=== PATIENT | male | born 1940 | race Caucasian/White ===

== ENCOUNTER 2021-10-02 14:00 | Inpatient (IN) ==
--- NOTE | 2021-10-02 14:07 | DR.DIZZY ---
HPI Time seen Time Seen by Provider: 10/02/21 14:15 HPI Comment HPI Comment: PATIENT IS 81YR OLD MALE IN ER WITH GENERALIZED PAIN, FREQUENT FALLS, LEFT SIDE PAIN AND VOMITING FOR FEW DAYS. HAVING HEADACHE. CHEST, ABDOMINAL PAIN AND NECK PAIN MAINLY ON RIGHT SIDE FROM THE FALL. PAIN IS SHATP, 7/10. Complaint Chief Complaint Doctor Comments: GENERALIZED WEAKNESS, VOMITING, FREQUENT FALLS AND SIDE PAIN FOR FEW DAYS. COVID-19 Coronavirus risk:travel/contact w/high risk person: No Has patient experienced Coronavirus symptoms: No Nurses Notes Reviewed Nurses Notes Review: Yes Source History Provided: Patient and Family Member Timing Came on: Suddenly Duration Duration: Constant Duration: Days Location of Weakness Weakness Location: Generalized Context Onset: At rest History of: None Stroke Symptoms: Ataxia Severity Severity: Abnormal activity level Modifying factors Worsens: Change in Position Associated signs and symptoms Associated Signs and Symptoms: Imbalance, Weak and Vomiting PMH PMH Past Surgical History: Yes ROS Review of Systems Constitutional: See HPI, Weakness and Fatigue; negative Fever Eyes: No Symptoms Reported and See HPI; negative Blurred Vision and Diplopia ENTM: No Symptoms Reported and See HPI; negative Nose Discharge and Nose Congestion Respiratoy: No Symptoms Reported and See HPI; negative Moist Cough and Short of Breath Cardiovascular: No Symptoms Reported and See HPI; negative Chest Pain Gastrointestinal/Abdominal: See HPI, Nausea and Vomiting; negative Abdominal Pain and Diarrhea Genitourinary: No Symptoms Reported and See HPI; negative Dysuria Neurological: See HPI, Headache and Weakness; negative Dizziness Musculoskeletal: No Symptoms Reported and See HPI; negative Back Pain and Muscle Pain Integumentary: No Symptoms Reported and See HPI; negative Rash and Juandice Hematologic/Lymphatic: No Symptoms Reported and See HPI Endocrine: No Symptoms Reported and See HPI; negative Increased Thirst and Increased Urine Psychiatric: No Symptoms Reported and See HPI All Other Systems: Reviewed and Negative PE Vital Signs Vitals: Temperature 98.4 F Pulse Rate 89 Respiratory Rate 28 Blood Pressure 99/62 O2 Sat by Pulse Oximetry 95 General Limitations: No Limitations General Appearance: Alert and In No Apparent Distress Head Head Exam: Normal Inspection Eyes Eye exam: Normal Appearance; negative Scleral Icterus and Conjunctival Injection Pupils: Regular, Round: Bilateral and Reactive: Bilateral Sclera/Conjunctival: Normal Inspection: Bilateral ENT ENT Exam: Normal Exam, Normal Oropharynx, Normal External Ear Exam and TM's Normal Bilaterally Neck Neck Exam: Normal Inspection, Full ROM and Trachea Midline; negative Tenderness Chest Chest Inspection: Normal Inspection and Symmetric Chest Wall Rise; negative Tenderness Respiratory Respiratory Exam: Normal Lung Sounds Bilat; negative Accessory Muscle Use, Chest Wall Tenderness and Respiratory Distress Respiratory Exam: Bilateral: Rhonchi and Lower: Rhonchi Cardiovascular Cardiovascular Exam: Regular Rate, Normal Rhythm and Normal Heart Sounds; negative Systolic Murmur and Diastolic Murmur Abdominal Exam Abdominal Exam: Normal Inspection, Normal Bowel Sounds and Soft; negative Tenderness Rectal Rectal Exam: Deferred Extremeties Extremities Exam: Normal Inspection, Full ROM and Normal Capillary Refill Back Back Exam: Normal Inspection and Full ROM; negative (R) CVA Tenderness and (L) CVA Tenderness Neurologic Neurological Exam: Alert and Oriented X3; negative Motor Sensory Deficit Patient Oriented To: Person, Place and Time Cranial Nerve Exam: EOM Function (II, III, IV, ): Normal, Facial Sensation (V): Normal, Facial Palsy (VII): Normal, Gag reflex (XI): Normal and Tongue Deviation: Normal Motor Strength - LUE: 5/5 Motor Strength - RUE: 5/5 Motor Strength - LLE: 5/5 Motor Strength - RLE: 5/5 Upper Motor Neuron Exam: Babinski Sign: Normal Psychiatric Psychiatric Exam: Normal Affect and Normal Mood Skin Skin Exam: Warm, Dry, Intact and Normal Color MDM Differential Diagnosis Differential Diagnosis: CVA, Dehydration, Dysrhythmia, Electrolyte disorder, Labyrinthitis, Myocardial infarction, TIA and Central Vertigo Differential Diagnosis Comment: [place], PNEUMONIA, UTI, PAIN, ABD. PAIN, NECK STRAIN, CLOSE HEAD INJURY. COURSE Treatment Treatment: SEE ORDERS DONE WHILE PATIENT WAS IN ER. PATIENT WAS GIVEN ZOFRAN 4MG IV, LOPRESSOR 5MG IV AND NS 250MG/HR IV WHILE PATIENT WAS IN ER. PATIENT WAS AD MITTED TO HOSPITAL FOR FURTHER MANAGEMENT. Consultation Consultation Comments: DISCUSSED PATIENT WITH DR. JARA. HE ADMITTED PATIENT. Education/Counseling Education/Counseling: Patient Educated On: Diagnosis ROR Labs Reviewed Laboratory Results Reviewed?: Yes Result Diagrams: 10/13/21 05:00 10/13/21 05:00 Laboratory: 10/02/21 15:33 Blood Blood Culture - Final 10/02/21 15:27 Blood Blood Culture - Final WBC 15.0 X10^3/uL (3.6-10.0) H 10/02/21 14:15 RBC 2.87 X10^6/uL (4.7-6.0) L 10/02/21 14:15 Hgb 8.7 g/dL (13.5-18.0) L 10/02/21 14:15 Hct 25.8 % (42.0-54.0) L 10/02/21 14:15 MCV 90.1 fL (80.0-100.0) 10/02/21 14:15 MCH 30.2 pg (27.0-34.0) 10/02/21 14:15 MCHC 33.5 g/dL (33.0-35.0) 10/02/21 14:15 RDW 14.9 % (11.6-16.5) 10/02/21 14:15 Plt Count 282 X10^3/uL (150.0-450.0) 10/02/21 14:15 Plt Count Comment Adequate (ADEQUATE) 10/02/21 14:15 MPV 9.2 fL (7.4-11.0) 10/02/21 14:15 Neut % (Auto) 90.9 % (42.0-75.0) H 10/02/21 14:15 Lymph % (Auto) 2.4 % (21.0-51.0) L 10/02/21 14:15 [place] % (Auto) 6.3 % (0.0-13.0) 10/02/21 14:15 Eos % (Auto) 0.1 % (0.9-2.9) L 10/02/21 14:15 Baso % (Auto) 0.3 % (0.2-1.0) 10/02/21 14:15 Neut # (Auto) 13.6 x10^3/uL (2.2-4.8) H 10/02/21 14:15 Lymph # (Auto) 0.4 X10^3/uL (1.3-2.9) L 10/02/21 14:15 [place] # (Auto) 0.9 x10^3/uL (0.3-0.8) H 10/02/21 14:15 Eos # (Auto) 0.0 x10^3/uL (0.0-0.2) 10/02/21 14:15 Baso # (Auto) 0.0 X10^3/uL (0.0-0.1) 10/02/21 14:15 Absolute Nucleated RBC 0.0 /100WBC 10/02/21 14:15 Total Counted 100 10/02/21 14:15 Neutrophils % (Manual) 93 % (39-76) H 10/02/21 14:15 Lymphocytes % (Manual) 6 % (13-43) L 10/02/21 14:15 Monocytes % (Manual) 1 % (4-9) L 10/02/21 14:15 Plt Morphology Comment Normal (NORMAL) 10/02/21 14:15 RBC Morphology Normal (NORMAL) 10/02/21 14:15 Sodium 135 mmol/L (136-145) L 10/02/21 14:15 Corrected Sodium 137 mmol/L (136-145) 10/02/21 14:15 Potassium 5.1 mmol/L (3.5-5.1) 10/02/21 14:15 Chloride 98 mmol/L (98-107) 10/02/21 14:15 Carbon Dioxide 22.2 mmol/L (21-32) 10/02/21 14:15 BUN 98 mg/dL (7-18) H 10/02/21 14:15 Creatinine 5.80 mg/dL (0.70-1.30) H 10/02/21 14:15 Est GFR (MDRD) Af Amer 12 (>60) L 10/02/21 14:15 Est GFR (MDRD) Non-Af 10 (>60) L 10/02/21 14:15 Glucose 165 mg/dL (65-99) H 10/02/21 14:15 Lactic Acid 2.5 mmol/L (0.4-2.0) H 10/02/21 14:15 Calcium 7.2 mg/dL (8.5-10.1) L 10/02/21 14:15 Corrected Calcium 8.2 mg/dL (8.5-10.1) L 10/02/21 14:15 Total Bilirubin 0.60 mg/dL (0.2-1.0) 10/02/21 14:15 AST 62 Units/L (15-37) H 10/02/21 14:15 ALT 22 Units/L (12-78) 10/02/21 14:15 Alkaline Phosphatase 154 Units/L (46-116) H 10/02/21 14:15 Creatine Kinase 2718 Units/L (39-308) H 10/02/21 14:15 CK-MB (CK-2) 8.1 ng/mL (0-4.0) H* 10/02/21 14:15 CK/CKMB % Calc 0.3 % (<4) 10/02/21 14:15 Troponin I High Sens 61.5 ng/L (4.0-60.0) H* 10/02/21 14:15 B-Natriuretic Peptide 28.6 pg/mL (0-79) 10/02/21 14:15 Total Protein 5.9 g/dL (6.4-8.2) L 10/02/21 14:15 Albumin 2.8 g/dL (3.4-5.0) L 10/02/21 14:15 Globulin 3.1 g/dL (2.5-4.5) 10/02/21 14:15 Albumin/Globulin Ratio 0.9 Ratio (1.1-2.1) L 10/02/21 14:15 TSH 3rd Generation 0.859 uIU/mL (0.358-3.74) 10/02/21 14:15 Specimen Type Catherized urine 10/02/21 01:08 Urine Color Yellow (YELLOW) 10/02/21 01:08 Urine Appearance Clear (CLEAR) 10/02/21 01:08 Urine pH 5.0 (5.0 - 8.0) 10/02/21 01:08 Ur Specific [place] 1.020 (1.000-1.030) 10/02/21 01:08 Urine Protein 1+ (NEGATIVE) 10/02/21 01:08 Urine Glucose (UA) Negative (NEGATIVE) 10/02/21 01:08 Urine Ketones Negative (NEGATIVE) 10/02/21 01:08 Urine Occult Blood 1+ (NEGATIVE) 10/02/21 01:08 Urine Nitrite Negative (NEGATIVE) 10/02/21 01:08 Urine Bilirubin 1+ (NEGATIVE) 10/02/21 01:08 Urine Urobilinogen Normal (NORMAL) 10/02/21 01:08 Ur Leukocyte Esterase Negative (NEGATIVE) 10/02/21 01:08 Urine RBC None seen /HPF (0-3) 10/02/21 01:08 Urine WBC None seen /HPF (0-5) 10/02/21 01:08 Ur Squamous Epith Cells Rare /HPF (NEGATIVE) 10/02/21 01:08 Urine Bacteria Negative /HPF (NEGATIVE) 10/02/21 01:08 Ur Culture Indicated? No/not indicated 10/02/21 01:08 Theophylline < 2.0 ug/mL (10-20) L 10/02/21 14:15 SARS-CoV-2 (PCR) Negative (NEGATIVE) 10/02/21 15:58 Influenza Type A (PCR) Negative (NEGATIVE) 10/02/21 15:58 Influenza Type B (PCR) Negative (NEGATIVE) 10/02/21 15:58 RSV (PCR) Negative (NEGATIVE) 10/02/21 15:58 XRAY XRAY Interpreted by: Radiologist (REPORTS NOTED.) and Self EKG Rate: 155 [place]: Normal Rhythm: PSVT and PVCs Block: IVCD Hypertrophy: None ST: Nonsp Opioid Opioid Risk Tool Age (Gil box if 16-45): No Total: 0 Total Score Risk Category: Low Risk Copyright: [facility] predicting aberrant behaviors Diagnosis Discharge Problem: Acute dehydration, Weakness generalized Acute renal failure Qualifiers: Acute renal failure type: unspecified Qualified Code(s): N17.9 - Acute kidney failure, unspecified Thoracic spine fracture Qualifiers: Encounter type: initial encounter Thoracic vertebra fracture level: T8 Fracture type: closed Fracture morphology: unspecified fracture morphology Qualified Code(s): S22.069A - Unspecified fracture of T7-T8 vertebra, initial encounter for closed fracture Closed left scapular fracture Qualifiers: Encounter type: initial encounter Scapula location: body Fracture alignment: nondisplaced Qualified Code(s): S42.115A - Nondisplaced fracture of body of scapula, left shoulder, initial encounter for closed fracture Fall Qualifiers: Encounter type: initial encounter Qualified Code(s): W19.XXXA - Unspecified fall, initial encounter Instructions Forms: Precautions for COVID19 [facility] Social Distancing
[2021-10-02 14:28] VITALS: BMI 29.9
[2021-10-02 14:31] LABS: BASOPHILS % (AUTO) 0.3 % (0.2-1.0); EOSINOPHILS % (AUTO) 0.1 % (0.9-2.9); HEMATOCRIT 25.8 % (42.0-54.0); HEMOGLOBIN 8.7 g/dL (13.5-18.0); LYMPHOCYTES # (AUTO) 0.4 X10^3/uL (1.3-2.9); LYMPHOCYTES % (AUTO) 2.4 % (21.0-51.0); MEAN CORPUSCULAR HEMOGLOBIN 30.2 pg (27.0-34.0); MEAN CORPUSCULAR HGB CONC 33.5 g/dL (33.0-35.0); MEAN CORPUSCULAR VOLUME 90.1 fL (80.0-100.0); MEAN PLATELET VOLUME 9.2 fL (7.4-11.0); MONOCYTES # (AUTO) 0.9 x10^3/uL (0.3-0.8); MONOCYTES % (AUTO) 6.3 % (0.0-13.0); NEUTROPHILS # (AUTO) 13.6 x10^3/uL (2.2-4.8); NEUTROPHILS % (AUTO) 90.9 % (42.0-75.0); RED BLOOD COUNT 2.87 X10^6/uL (4.7-6.0); RED CELL DISTRIBUTION WIDTH 14.9 % (11.6-16.5)
[2021-10-02 14:49] LABS: PLATELET MORPHOLOGY COMMENT NORMAL (NORMAL)
--- NOTE | 2021-10-02 14:53 | CT ---
HEAD (TRAUMA)CLINICAL INDICATION: NO APPETITE, WEAK, DEHYDRATED, FALLINGTECHNIQUE: Images were obtained through the head per standard CT protocol. Multiplanar reformatted images were generated from the CT dataset. Dose reduction techniques including Automated Exposure Control (AEC) and adjustment of mA and kV were utlized.COMPARISON:NoneFINDINGS:Severe diffuse patchy and confluent periventricular and subcortical hypoattenuation with associated volume loss . There is no evidence of acute infarction, intracranial hemorrhage, mass or mass effect, or abnormal extra-axial collection . The density of the larger dural venous sinuses is normal. Age-related, ex-vacuo dilatation of the ventricles and sulci . The skull base and calvarium are normal . The included paranasal sinuses and mastoid air cells are predominantly clear .IMPRESSION:1. No acute intracranial abnormality. Severe chronic microangiopathic changes and ex vacuo dilatation of the ventricles and sulci.[]Electronically signed by: DANITA LAFLEUR (Oct 02, 2021 14:52:20)
[2021-10-02 14:57] LABS: CALCIUM 7.2 mg/dL (8.5-10.1); CARBON DIOXIDE 22.2 mmol/L (21-32); CREATININE 5.8 mg/dL (0.70-1.30)
--- NOTE | 2021-10-02 14:59 | CT ---
PROCEDURE: CT Abdomen and Pelvis without Contrast .HISTORY: Anorexia and weakness with dehydration and falls.TECHNIQUE: Axial images were performed through the abdomen and pelvis without the administration of IV contrast with multiplanar reformations . Oral contrast was not administered . Dose reduction techniques including Automated Exposure Control (AEC) and adjustment of mA and kV were utilized .COMPARISON: None .TECHNICAL QUALITY: This study was ordered and performed without IV contrast and is insensitive to lower grade solid organ trauma.FINDINGS:Clear lung bases. Moderate hiatal hernia.No upper abdominal solid organ trauma.Kidneys show no stones or obstruction.Small stones in the gallbladder with no inflammation and normal size biliary tree.No ascites or pneumoperitoneum.Mild atherosclerosis aorta.No lymphadenopathy.No bowel obstruction or inflammation. Mild colonic diverticulosis. Normal appendix.Pelvis shows no masses or free fluid in normal urinary bladder.No acute bony abnormality.IMPRESSION:1. Cholelithiasis.2. No upper abdominal solid organ trauma or ascites.3. Mild colonic diverticulosis.4. No bony fracture.Electronically signed by: Girma Zambrano (Oct 02, 2021 14:58:27)
[2021-10-02] MEDS ORDERED: ZOFRAN INJ 4 MG VIAL IVP ONE (15:02)
[2021-10-02] MEDS ORDERED: LOPRESSOR INJ 5 MG AMP IVP ONE (15:02)
[2021-10-02] MEDS ORDERED: NS 1,000 ML IV 1,000 ML ONE ×2 (15:08→19:41)
[2021-10-02] MEDS ORDERED: ZOFRAN INJ 4 MG VIAL ONE (15:08)
[2021-10-02] MEDS ORDERED: LOPRESSOR INJ 5 MG AMP ONE (15:08)
--- NOTE | 2021-10-02 15:10 | CT ---
HISTORYNO APPETITE, WEAK, DEHYDRATED, FALLINGSTUDYCERVICAL SPINE W/O CONCOMPARISONNone available.TECHNIQUEAxial non-contrast images of the cervical spine with coronal and sagittal reformats.Radiation dose: 354.20 mGy-cm total DLPFINDINGSNo acute fracture.Normal alignment.Vertebral body heights maintained.Pre-vertebral soft tissues are normal.No clinically significant spinal stenosis.Multilevel neural foraminal narrowing.Multilevel mild degenerative disc disease throughout the cervical spine.Moderate degenerative changes at the atlantoaxial interval.Multilevel moderate degenerative changes in the facet and uncovertebral joints.Soft tissues are unremarkable.Paraseptal emphysema in both apices is wall scarring in the right lung apex.Cerumen in the external auditory canals.IMPRESSION1. No acute abnormality identified.2. Multilevel degenerative disc and joint changes resulting in multilevel neural foraminal narrowing.Electronically signed by: Trent Wilder (Oct 02, 2021 15:09:18)
--- NOTE | 2021-10-02 15:16 | CT ---
PROCEDURE: CT Chest without Contrast .HISTORY: Anorexia with weakness, dehydration, and falls.TECHNIQUE: Axial images were performed through the chest without the administration of IV contrast with multiplanar reformations . Dose reduction techniques including Automated Exposure Control (AEC) and adjustment of mA and kV were utilized .COMPARISON: 09/28/2016.TECHNICAL QUALITY: Satisfactory .FINDINGS:Mild atherosclerosis thoracic aorta with no aneurysm or vascular trauma.Mediastinum and hilar regions show no masses or lymphadenopathy. No hemo mediastinum or pneumo mediastinum. Moderate hiatal hernia with gastroesophageal reflux with moderate distention of the thoracic esophagus with fluid.Normal size heart with trace pericardial effusion.Emphysematous changes throughout both lung abraham. No pulmonary contusion, hemothorax, or pneumothorax. Some bronchiectasis and scarring right apex. No pulmonary masses.Small gallstones in the gallbladder visualized upper abdomen. No other acute change.Moderately comminuted left scapula fracture. Possible fracture through the anterior portion of the T8 vertebral body without significant decrease in height. Old fracture distal left clavicle with bony deformity.IMPRESSION:1. No thoracic vascular pulmonary trauma.2. Moderate hiatal hernia with gastroesophageal reflux.3. COPD.4. Moderately comminuted left scapula fracture.5. Possible T8 vertebral body fracture and clinical correlation recommended.6. Cholelithiasis.Electronically signed by: Girma Zambrano (Oct 02, 2021 15:15:35)
[2021-10-02] MEDS: NS 1,000 ML IV 1,000 ML IV SCH ×2 (15:21→21:29)
[2021-10-02 16:09] LABS: ALBUMIN 2.8 g/dL (3.4-5.0); COR CA(FOR HYPOALB) 8.2 mg/dL (8.5-10.1); TOTAL PROTEIN 5.9 g/dL (6.4-8.2)
[2021-10-02 16:11] LABS: CKMB % 0.3 % (<4); CREATINE KINASE MB 8.1 ng/mL (0-4.0)
[2021-10-02 16:12] LABS: THEOPHYLLINE < 2.0 ug/mL (10-20); TSH (3RD GENERATION) 0.859 uIU/mL (0.358-3.74)
[2021-10-02] MEDS ORDERED: NS 1,000 ML IV 1,000 ML IV SCH (19:23)
[2021-10-02] MEDS: PEPCID TAB 20 MG PO SCH (21:51)
[2021-10-03 02:00] LABS: BILIRUBIN,URINE 1+ (NEGATIVE); BLOOD/HEMOGLOBIN,URINE 1+ (NEGATIVE); GLUCOSE, URINE NEGATIVE (NEGATIVE); KETONES,URINE NEGATIVE (NEGATIVE); LEUKOCYTE ESTERASE ,URINE NEGATIVE (NEGATIVE); NITRITES,URINE NEGATIVE (NEGATIVE); PROTEIN,URINE 1+ (NEGATIVE); UROBILINOGEN,URINE NORMAL (NORMAL)
[2021-10-03 02:43] LABS: APPEARANCE,URINE CLEAR (CLEAR); BACTERIA,URINE NEGATIVE /HPF (NEGATIVE); COLOR,URINE YELLOW (YELLOW); RBC,URINE NONE SEEN /HPF (0-3); SQUAMOUS EPITHELIAL CELL,UR RARE /HPF (NEGATIVE)
[2021-10-03] MEDS: NS 1,000 ML IV 1,000 ML IV SCH ×4 (04:09→23:30)
[2021-10-03 05:03] LABS: BASOPHILS % (AUTO) 0.2 % (0.2-1.0); EOSINOPHILS # (AUTO) 0.1 x10^3/uL (0.0-0.2); EOSINOPHILS % (AUTO) 0.7 % (0.9-2.9); HEMATOCRIT 21.3 % (42.0-54.0); HEMOGLOBIN 7.1 g/dL (13.5-18.0); LYMPHOCYTES # (AUTO) 0.7 X10^3/uL (1.3-2.9); LYMPHOCYTES % (AUTO) 6.4 % (21.0-51.0); MEAN CORPUSCULAR HEMOGLOBIN 30.3 pg (27.0-34.0); MEAN CORPUSCULAR HGB CONC 33.4 g/dL (33.0-35.0); MEAN CORPUSCULAR VOLUME 90.8 fL (80.0-100.0); MEAN PLATELET VOLUME 9.6 fL (7.4-11.0); MONOCYTES # (AUTO) 0.8 x10^3/uL (0.3-0.8); MONOCYTES % (AUTO) 6.7 % (0.0-13.0); RED BLOOD COUNT 2.35 X10^6/uL (4.7-6.0); RED CELL DISTRIBUTION WIDTH 14.6 % (11.6-16.5)
[2021-10-03 05:07] LABS: ALANINE AMINOTRANSFERASE 21 Units/L (12-78); ALBUMIN 2.1 g/dL (3.4-5.0); ALKALINE PHOSPHATASE 121 Units/L (46-116); ASPARTATE AMINO TRANSFERASE 75 Units/L (15-37); BLOOD UREA NITROGEN 102 mg/dL (7-18); CALCIUM 6.7 mg/dL (8.5-10.1); CARBON DIOXIDE 21.7 mmol/L (21-32); CHLORIDE 104 mmol/L (98-107); COR CA(FOR HYPOALB) 8.2 mg/dL (8.5-10.1); CREATININE 4.55 mg/dL (0.70-1.30); MAGNESIUM 1.9 mg/dL (1.7-2.9); SODIUM 137 mmol/L (136-145); TOTAL PROTEIN 5.1 g/dL (6.4-8.2); eGFR NON BLACK RACES 13 (>60)
[2021-10-03 05:47] LABS: PLATELET MORPHOLOGY COMMENT NORMAL (NORMAL); WHITE BLOOD COUNT 13.7 X10^3/uL (3.6-10.0)
[2021-10-03 05:53] LABS: CKMB % 0.2 % (<4)
[2021-10-03 05:55] LABS: CREATINE KINASE MB 7.6 ng/mL (0-4.0)
[2021-10-03] MEDS ORDERED: MAGNESIUM SULFATE 1 GRAM/100 mL PREMIX 1 G/100 ML BAG IV ONE (06:03)
[2021-10-03] MEDS: MAGNESIUM SULFATE 1 GRAM/100 mL PREMIX 1 G/100 ML BAG IV PRN ×2 (06:09→09:05)
--- NOTE | 2021-10-03 08:43 | DR.H&P ---
H&P History & Physical for Day of: H&P Date: 10/02/21 Chief Complaint Chief Complaint: Frequent Falls, generalized pain, Nausea and vomiting for a few days. Allergies Allergies Allergy/AdvReac Type Severity Reaction Status Date / Time Penicillins Allergy Verified 10/02/21 14:01 History of Present Illness History of Present Illness: This is a pleasant 81 year old white male who presented to the emergency department with Chief complaint frequent falls, Generalized pain and nausea and vomiting for for a number of days. The patient is a poor historian it does not answer questions well. Currently there are no family members available to discuss the patient's recent medical history and past medical history. He does report having black stools over the last several bowel movements. He denies coffee ground emesis. In the work up last night in the emergency department he was found to be professionally dehydrated with a creatinine of 5.8. His hemoglobin was 8.7. He was also found to have a close scapula fracture on the left side as well as a fracture of the T8 vertebra. Initially his high sensitivity troponin was slightly elevated just above 60. I suspect it is falsely elevated due to his low cr clearance. Patient urinalysis was done and it did not show infection. His chest x-ray did not show any evidence of infiltrates or consolidations. He does have a Leukocytosis of 15,000. The patient was going to be transferred elsewhere because of these T8 fracture but The patient refused as well as a family. They instead elected to be admitted here to [facility] for treatment. The patient was subsequently admitted upstairs for IV fluid hydration and pain control of his fractures. Past Medical History Past Medical History: CHF, Dementia, Dyslipidemia, GERD, Gout and Hypertension Past Surgical History Additional Surgical History: Right wrist surgery unknown type. Family History Family Medical History: Cancer Social History Does patient currently use any type of tobacco product: No Have you used tobacco products in the last 12 months: No Type of Tobacco Use: None How many years tobacco product used: 20 Does any household member use tobacco: No Alcohol Use: None Drug Use: Prescription Drugs Medications Home Medications: Penicillins Allergy (Verified 10/02/21 14:01) CONTINUE taking the following medications atorvastatin 40 mg PO HS 10/02/21 [History] cilostazol 100 mg PO BID 10/02/21 [History] ferrous sulfate 324 mg PO BID 10/02/21 [History] furosemide 20 mg PO BID PRN 10/02/21 [History] indomethacin 50 mg PO BID 10/02/21 [History] lisinopril-hydrochlorothiazide 1 tab PO DAILY 10/02/21 [History] potassium chloride 10 meq PO DAILY 10/02/21 [History] Labs Result Diagrams: 10/03/21 04:25 10/03/21 04:25 Labs: Laboratory WBC 13.7 X10^3/uL (3.6-10.0) H 10/03/21 04:25 RBC 2.35 X10^6/uL (4.7-6.0) L 10/03/21 04:25 Hgb 7.1 g/dL (13.5-18.0) L 10/03/21 04:25 Hct 21.3 % (42.0-54.0) L 10/03/21 04:25 MCV 90.8 fL (80.0-100.0) 10/03/21 04:25 MCH 30.3 pg (27.0-34.0) 10/03/21 04:25 MCHC 33.4 g/dL (33.0-35.0) 10/03/21 04:25 RDW 14.6 % (11.6-16.5) 10/03/21 04:25 Plt Count 223 X10^3/uL (150.0-450.0) 10/03/21 04:25 Plt Count Comment Adequate (ADEQUATE) 10/03/21 04:25 MPV 9.6 fL (7.4-11.0) 10/03/21 04:25 Neut % (Auto) 86.0 % (42.0-75.0) H 10/03/21 04:25 Lymph % (Auto) 6.4 % (21.0-51.0) L 10/03/21 04:25 [place] % (Auto) 6.7 % (0.0-13.0) 10/03/21 04:25 Eos % (Auto) 0.7 % (0.9-2.9) L 10/03/21 04:25 Baso % (Auto) 0.2 % (0.2-1.0) 10/03/21 04:25 Neut # (Auto) 10.0 x10^3/uL (2.2-4.8) H 10/03/21 04:25 Lymph # (Auto) 0.7 X10^3/uL (1.3-2.9) L 10/03/21 04:25 [place] # (Auto) 0.8 x10^3/uL (0.3-0.8) 10/03/21 04:25 Eos # (Auto) 0.1 x10^3/uL (0.0-0.2) 10/03/21 04:25 Baso # (Auto) 0.0 X10^3/uL (0.0-0.1) 10/03/21 04:25 Absolute Nucleated RBC 0.0 /100WBC 10/03/21 04:25 Total Counted 100 10/02/21 14:15 Neutrophils % (Manual) 93 % (39-76) H 10/02/21 14:15 Lymphocytes % (Manual) 6 % (13-43) L 10/02/21 14:15 Monocytes % (Manual) 1 % (4-9) L 10/02/21 14:15 Plt Morphology Comment Normal (NORMAL) 10/03/21 04:25 RBC Morphology Normal (NORMAL) 10/03/21 04:25 PT 14.8 SECONDS (11.8-14.3) 10/03/21 04:25 INR Target Range - 10/03/21 04:25 INR 1.21 (0.8-1.3) 10/03/21 04:25 APTT 20.0 SECONDS (22.9-36.5) L 10/03/21 04:25 PTT Comment - 10/03/21 04:25 Sodium 137 mmol/L (136-145) 10/03/21 04:25 Corrected Sodium TNP 10/03/21 04:25 Potassium 4.8 mmol/L (3.5-5.1) 10/03/21 04:25 Chloride 104 mmol/L (98-107) 10/03/21 04:25 Carbon Dioxide 21.7 mmol/L (21-32) 10/03/21 04:25 BUN 102 mg/dL (7-18) H 10/03/21 04:25 Creatinine 4.55 mg/dL (0.70-1.30) H 10/03/21 04:25 Est GFR (MDRD) Af Amer 16 (>60) L 10/03/21 04:25 Est GFR (MDRD) Non-Af 13 (>60) L 10/03/21 04:25 Glucose 83 mg/dL (65-99) 10/03/21 04:25 Lactic Acid 2.5 mmol/L (0.4-2.0) H 10/02/21 14:15 Calcium 6.7 mg/dL (8.5-10.1) L 10/03/21 04:25 Corrected Calcium 8.2 mg/dL (8.5-10.1) L 10/03/21 04:25 Magnesium 1.9 mg/dL (1.7-2.9) 10/03/21 04:25 Total Bilirubin 0.40 mg/dL (0.2-1.0) 10/03/21 04:25 AST 75 Units/L (15-37) H 10/03/21 04:25 ALT 21 Units/L (12-78) 10/03/21 04:25 Alkaline Phosphatase 121 Units/L (46-116) H 10/03/21 04:25 Creatine Kinase 3255 Units/L (39-308) H 10/03/21 04:25 CK-MB (CK-2) 7.6 ng/mL (0-4.0) H* 10/03/21 04:25 CK/CKMB % Calc 0.2 % (<4) 10/03/21 04:25 Troponin I High Sens 52.3 ng/L (4.0-60.0) 10/03/21 04:25 B-Natriuretic Peptide 28.6 pg/mL (0-79) 10/02/21 14:15 Total Protein 5.1 g/dL (6.4-8.2) L 10/03/21 04:25 Albumin 2.1 g/dL (3.4-5.0) L 10/03/21 04:25 Globulin 3.0 g/dL (2.5-4.5) 10/03/21 04:25 Albumin/Globulin Ratio 0.7 Ratio (1.1-2.1) L 10/03/21 04:25 TSH 3rd Generation 0.859 uIU/mL (0.358-3.74) 10/02/21 14:15 Specimen Type Catherized urine 10/02/21 01:08 Urine Color Yellow (YELLOW) 10/02/21 01:08 Urine Appearance Clear (CLEAR) 10/02/21 01:08 Urine pH 5.0 (5.0 - 8.0) 10/02/21 01:08 Ur Specific [place] 1.020 (1.000-1.030) 10/02/21 01:08 Urine Protein 1+ (NEGATIVE) 10/02/21 01:08 Urine Glucose (UA) Negative (NEGATIVE) 10/02/21 01:08 Urine Ketones Negative (NEGATIVE) 10/02/21 01:08 Urine Occult Blood 1+ (NEGATIVE) 10/02/21 01:08 Urine Nitrite Negative (NEGATIVE) 10/02/21 01:08 Urine Bilirubin 1+ (NEGATIVE) 10/02/21 01:08 Urine Urobilinogen Normal (NORMAL) 10/02/21 01:08 Ur Leukocyte Esterase Negative (NEGATIVE) 10/02/21 01:08 Urine RBC None seen /HPF (0-3) 10/02/21 01:08 Urine WBC None seen /HPF (0-5) 10/02/21 01:08 Ur Squamous Epith Cells Rare /HPF (NEGATIVE) 10/02/21 01:08 Urine Bacteria Negative /HPF (NEGATIVE) 10/02/21 01:08 Ur Culture Indicated? No/not indicated 10/02/21 01:08 Theophylline < 2.0 ug/mL (10-20) L 10/02/21 14:15 SARS-CoV-2 (PCR) Negative (NEGATIVE) 10/02/21 15:58 Influenza Type A (PCR) Negative (NEGATIVE) 10/02/21 15:58 Influenza Type B (PCR) Negative (NEGATIVE) 10/02/21 15:58 RSV (PCR) Negative (NEGATIVE) 10/02/21 15:58 Review of Systems Constitutional: Weakness and Malaise Eyes: No Symptoms Reported ENT: No Symptoms Reported Respiratory: No Symptoms Reported Cardiovascular: No Symptoms Reported Gastrointestinal: Nausea and Vomiting Genitourinary: No Symptoms Reported Musculoskeletal: Shoulder Pain and Back Pain Skin: No Symptoms Reported Neurological: Weakness Physical Exam Vital Signs: Temperature 97.9 F Pulse Rate 77 Respiratory Rate 30 Blood Pressure [Left Arm] 104/56 Blood Pressure 121/65 O2 Sat by Pulse Oximetry 98 Oriented: Normal Eyes: Normal Ear: Normal Nose: Normal Throat: Normal Respiratory: Clear Throughout Cardiovascular: Normal Auscultation: Bowel Sounds: Normal Palpation: Normal Tenderness: Epigastric Skin: Decreased [place] Musculoskeletal: Left, Shoulder (Left shoulder blade pain. ) and Back:Thoracic (Painful to palpation over the T8 vertebrae. ) Psychiatric: Normal Mood Description: Calm Affect: Normal Speech Pattern: Delayed Assessment/Plan (1) Acute renal failure: Qualifiers: Acute renal failure type: unspecified Qualified Code(s): N17.9 - Acute kidney failure, unspecified Status: Acute Plan: Rehydration. (2) Acute dehydration: Status: Acute Plan: Intravenous hydration . (3) Thoracic spine fracture: Qualifiers: Encounter type: initial encounter Fracture morphology: unspecified fracture morphology Fracture type: closed Thoracic vertebra fracture level: T8 Qualified Code(s): S22.069A - Unspecified fracture of T7-T8 vertebra, initial encounter for closed fracture Status: Acute Plan: pain control. (4) Closed left scapular fracture: Qualifiers: Encounter type: initial encounter Fracture alignment: nondisplaced Scapula location: body Qualified Code(s): S42.115A - Nondisplaced fracture of body of scapula, left shoulder, initial encounter for closed fracture Status: Acute Plan: Pain control. (5) Weakness generalized: Status: Acute (6) Fall: Qualifiers: Encounter type: initial encounter Qualified Code(s): W19.XXXA - Unspecified fall, initial encounter Status: Acute (7) Anemia: Status: Acute Plan: Check hemoccult x 2 (8) Complaint of melena: Status: Acute Plan: we'll plan on consulting Dr. Rodriguez. (9) Rhabdomyolysis: Status: Acute
--- NOTE | 2021-10-03 09:07 | PCM.PROG ---
Progress Note Progress Note for Day of Date of Exam: 10/03/21 Subjective Subjective: The patient is at work this morning. He still is not answering questions well. His hemoglobin dropped to 7.1 this morning. His creatinine has improved to 4.55. However the patients creatine kinase has gone up since yesterday. Patient's vital signs have improved overall with a normalization of his blood pressure as well as his heart rate. Protonix 40 mg IV Q 12 hours with order this morning. And I will be consult Dr Rodriguez so he can see the patient later today for further evaluation and treatment. Past Medical Family Social History Past Med/Fam/Surg Hx: No changes since H&P Allergies: Allergies Penicillins Allergy (Verified 10/02/21 14:01) Vital Signs and I&O's Vital Signs: Temperature 97.9 F Pulse Rate 77 Respiratory Rate 30 Blood Pressure [Left Arm] 104/56 Blood Pressure 121/65 O2 Sat by Pulse Oximetry 98 Intake and Output: Intake & Output 09/30/21 10/01/21 10/02/21 10/03/21 10:59 11:59 11:59 11:59 Intake Total 2938 / 2938 Output Total 1050 / 1050 Balance 1888 / 1888 Physical Exam Oriented: Normal Eyes: Normal Ear: Normal Nose: Normal Throat: Normal Respiratory: Normal Cardiovascular: Normal : Normal Auscultation: Bowel Sounds: Normal Tenderness: Epigastric Skin: Decreased Turgur Musculoskeletal: Left, Shoulder (Left shoulder blade pain. ) and Back:Thoracic (Painful to palpation over the T8 vertebrae. ) Psychiatric: Normal Mood Description: Calm Affect: Normal Speech Pattern: Delayed Laboratory and Diagnostics Result Diagrams: 10/03/21 04:25 10/03/21 04:25 Labs: Laboratory WBC 13.7 X10^3/uL (3.6-10.0) H 10/03/21 04:25 RBC 2.35 X10^6/uL (4.7-6.0) L 10/03/21 04:25 Hgb 7.1 g/dL (13.5-18.0) L 10/03/21 04:25 Hct 21.3 % (42.0-54.0) L 10/03/21 04:25 MCV 90.8 fL (80.0-100.0) 10/03/21 04:25 MCH 30.3 pg (27.0-34.0) 10/03/21 04:25 MCHC 33.4 g/dL (33.0-35.0) 10/03/21 04:25 RDW 14.6 % (11.6-16.5) 10/03/21 04:25 Plt Count 223 X10^3/uL (150.0-450.0) 10/03/21 04:25 Plt Count Comment Adequate (ADEQUATE) 10/03/21 04:25 MPV 9.6 fL (7.4-11.0) 10/03/21 04:25 Neut % (Auto) 86.0 % (42.0-75.0) H 10/03/21 04:25 Lymph % (Auto) 6.4 % (21.0-51.0) L 10/03/21 04:25 [place] % (Auto) 6.7 % (0.0-13.0) 10/03/21 04:25 Eos % (Auto) 0.7 % (0.9-2.9) L 10/03/21 04:25 Baso % (Auto) 0.2 % (0.2-1.0) 10/03/21 04:25 Neut # (Auto) 10.0 x10^3/uL (2.2-4.8) H 10/03/21 04:25 Lymph # (Auto) 0.7 X10^3/uL (1.3-2.9) L 10/03/21 04:25 [place] # (Auto) 0.8 x10^3/uL (0.3-0.8) 10/03/21 04:25 Eos # (Auto) 0.1 x10^3/uL (0.0-0.2) 10/03/21 04:25 Baso # (Auto) 0.0 X10^3/uL (0.0-0.1) 10/03/21 04:25 Absolute Nucleated RBC 0.0 /100WBC 10/03/21 04:25 Total Counted 100 10/02/21 14:15 Neutrophils % (Manual) 93 % (39-76) H 10/02/21 14:15 Lymphocytes % (Manual) 6 % (13-43) L 10/02/21 14:15 Monocytes % (Manual) 1 % (4-9) L 10/02/21 14:15 Plt Morphology Comment Normal (NORMAL) 10/03/21 04:25 RBC Morphology Normal (NORMAL) 10/03/21 04:25 PT 14.8 SECONDS (11.8-14.3) 10/03/21 04:25 INR Target Range - 10/03/21 04:25 INR 1.21 (0.8-1.3) 10/03/21 04:25 APTT 20.0 SECONDS (22.9-36.5) L 10/03/21 04:25 PTT Comment - 10/03/21 04:25 Sodium 137 mmol/L (136-145) 10/03/21 04:25 Corrected Sodium TNP 10/03/21 04:25 Potassium 4.8 mmol/L (3.5-5.1) 10/03/21 04:25 Chloride 104 mmol/L (98-107) 10/03/21 04:25 Carbon Dioxide 21.7 mmol/L (21-32) 10/03/21 04:25 BUN 102 mg/dL (7-18) H 10/03/21 04:25 Creatinine 4.55 mg/dL (0.70-1.30) H 10/03/21 04:25 Est GFR (MDRD) Af Amer 16 (>60) L 10/03/21 04:25 Est GFR (MDRD) Non-Af 13 (>60) L 10/03/21 04:25 Glucose 83 mg/dL (65-99) 10/03/21 04:25 Lactic Acid 2.5 mmol/L (0.4-2.0) H 10/02/21 14:15 Calcium 6.7 mg/dL (8.5-10.1) L 10/03/21 04:25 Corrected Calcium 8.2 mg/dL (8.5-10.1) L 10/03/21 04:25 Magnesium 1.9 mg/dL (1.7-2.9) 10/03/21 04:25 Total Bilirubin 0.40 mg/dL (0.2-1.0) 10/03/21 04:25 AST 75 Units/L (15-37) H 10/03/21 04:25 ALT 21 Units/L (12-78) 10/03/21 04:25 Alkaline Phosphatase 121 Units/L (46-116) H 10/03/21 04:25 Creatine Kinase 3255 Units/L (39-308) H 10/03/21 04:25 CK-MB (CK-2) 7.6 ng/mL (0-4.0) H* 10/03/21 04:25 CK/CKMB % Calc 0.2 % (<4) 10/03/21 04:25 Troponin I High Sens 52.3 ng/L (4.0-60.0) 10/03/21 04:25 B-Natriuretic Peptide 28.6 pg/mL (0-79) 10/02/21 14:15 Total Protein 5.1 g/dL (6.4-8.2) L 10/03/21 04:25 Albumin 2.1 g/dL (3.4-5.0) L 10/03/21 04:25 Globulin 3.0 g/dL (2.5-4.5) 10/03/21 04:25 Albumin/Globulin Ratio 0.7 Ratio (1.1-2.1) L 10/03/21 04:25 TSH 3rd Generation 0.859 uIU/mL (0.358-3.74) 10/02/21 14:15 Specimen Type Catherized urine 10/02/21 01:08 Urine Color Yellow (YELLOW) 10/02/21 01:08 Urine Appearance Clear (CLEAR) 10/02/21 01:08 Urine pH 5.0 (5.0 - 8.0) 10/02/21 01:08 Ur Specific [place] 1.020 (1.000-1.030) 10/02/21 01:08 Urine Protein 1+ (NEGATIVE) 10/02/21 01:08 Urine Glucose (UA) Negative (NEGATIVE) 10/02/21 01:08 Urine Ketones Negative (NEGATIVE) 10/02/21 01:08 Urine Occult Blood 1+ (NEGATIVE) 10/02/21 01:08 Urine Nitrite Negative (NEGATIVE) 10/02/21 01:08 Urine Bilirubin 1+ (NEGATIVE) 10/02/21 01:08 Urine Urobilinogen Normal (NORMAL) 10/02/21 01:08 Ur Leukocyte Esterase Negative (NEGATIVE) 10/02/21 01:08 Urine RBC None seen /HPF (0-3) 10/02/21 01:08 Urine WBC None seen /HPF (0-5) 10/02/21 01:08 Ur Squamous Epith Cells Rare /HPF (NEGATIVE) 10/02/21 01:08 Urine Bacteria Negative /HPF (NEGATIVE) 10/02/21 01:08 Ur Culture Indicated? No/not indicated 10/02/21 01:08 Theophylline < 2.0 ug/mL (10-20) L 10/02/21 14:15 SARS-CoV-2 (PCR) Negative (NEGATIVE) 10/02/21 15:58 Influenza Type A (PCR) Negative (NEGATIVE) 10/02/21 15:58 Influenza Type B (PCR) Negative (NEGATIVE) 10/02/21 15:58 RSV (PCR) Negative (NEGATIVE) 10/02/21 15:58 Radiology Reviewed: Yes EKG Reviewed: Yes Rhythm: NSR ST: Normal Plan (1) Acute renal failure: Status: Acute Qualifiers: Acute renal failure type: unspecified Qualified Code(s): N17.9 - Acute kidney failure, unspecified Narrative Support Text: Hydration status has approved this morning but it's not completely normalized. Plan: Rehydration. (2) Acute dehydration: Status: Acute Plan: Intravenous hydration . (3) Thoracic spine fracture: Status: Acute Qualifiers: Encounter type: initial encounter Fracture morphology: unspecified fra cture morphology Fracture type: closed Thoracic vertebra fracture level: T8 Qualified Code(s): S22.069A - Unspecified fracture of T7-T8 vertebra, initial encounter for closed fracture Plan: pain control. (4) Closed left scapular fracture: Status: Acute Qualifiers: Encounter type: initial encounter Fracture alignment: nondisplaced Scapula location: body Qualified Code(s): S42.115A - Nondisplaced fracture of body of scapula, left shoulder, initial encounter for closed fracture Plan: Pain control. (5) Weakness generalized: Status: Acute (6) Fall: Status: Acute Qualifiers: Encounter type: initial encounter Qualified Code(s): W19.XXXA - Unspecified fall, initial encounter (7) Anemia: Status: Acute Narrative Support Text: Drop in hemoglobin this morning since yesterday. Plan: Check hemoccult x 2 today. (8) Complaint of melena: Status: Acute Plan: we'll plan on consulting Dr. Rodriguez. Follow up with patient's hemoccult when available. (9) Rhabdomyolysis: Status: Acute Narrative Support Text: The patient is going up this morning compared to yesterday and despite IV fluid. Plan: I'll continue The patient's IV fluid at this time.
[2021-10-03] MEDS: PROTONIX INJ 40 MG VIAL IVP SCH ×2 (11:10→20:22)
[2021-10-03] MEDS ORDERED: STERILE WATER IRRIGATION IR ONE (12:40)
[2021-10-03] MEDS ORDERED: DIPRIVAN VIAL 20 ML ONE (12:55)
[2021-10-03] MEDS ORDERED: EPHEDRINE SULFATE INJ ONE (13:10)
[2021-10-03] MEDS: PEPCID TAB 20 MG PO SCH (15:28)
[2021-10-03] MEDS: HEMOCYTE-PLUS PO SCH (15:28)
[2021-10-03] MEDS: THORAZINE INJ 25 MG AMP IVP PRN (15:29)
[2021-10-04 05:20] LABS: BASOPHILS % (AUTO) 0.1 % (0.2-1.0); EOSINOPHILS # (AUTO) 0.1 x10^3/uL (0.0-0.2); EOSINOPHILS % (AUTO) 1.8 % (0.9-2.9); HEMATOCRIT 23.9 % (42.0-54.0); HEMOGLOBIN 7.8 g/dL (13.5-18.0); LYMPHOCYTES # (AUTO) 0.5 X10^3/uL (1.3-2.9); LYMPHOCYTES % (AUTO) 5.9 % (21.0-51.0); MEAN CORPUSCULAR HEMOGLOBIN 30.1 pg (27.0-34.0); MEAN CORPUSCULAR HGB CONC 32.8 g/dL (33.0-35.0); MEAN CORPUSCULAR VOLUME 91.6 fL (80.0-100.0); MEAN PLATELET VOLUME 9.1 fL (7.4-11.0); MONOCYTES # (AUTO) 0.4 x10^3/uL (0.3-0.8); MONOCYTES % (AUTO) 5.7 % (0.0-13.0); NEUTROPHILS # (AUTO) 6.8 x10^3/uL (2.2-4.8); NEUTROPHILS % (AUTO) 86.5 % (42.0-75.0); RED BLOOD COUNT 2.61 X10^6/uL (4.7-6.0); RED CELL DISTRIBUTION WIDTH 14.7 % (11.6-16.5); WHITE BLOOD COUNT 7.8 X10^3/uL (3.6-10.0)
[2021-10-04 05:33] LABS: ALANINE AMINOTRANSFERASE 25 Units/L (12-78); ALBUMIN 2.2 g/dL (3.4-5.0); ALKALINE PHOSPHATASE 135 Units/L (46-116); ASPARTATE AMINO TRANSFERASE 73 Units/L (15-37); BLOOD UREA NITROGEN 60 mg/dL (7-18); CALCIUM 7.4 mg/dL (8.5-10.1); CARBON DIOXIDE 22.8 mmol/L (21-32); CHLORIDE 110 mmol/L (98-107); COR CA(FOR HYPOALB) 8.8 mg/dL (8.5-10.1); CREATININE 2.22 mg/dL (0.70-1.30); SODIUM 144 mmol/L (136-145); eGFR NON BLACK RACES 31 (>60)
[2021-10-04] MEDS: THORAZINE INJ 25 MG AMP IVP PRN ×3 (05:49→22:32)
[2021-10-04] MEDS: NS 1,000 ML IV 1,000 ML IV SCH ×4 (06:10→22:11)
--- NOTE | 2021-10-04 08:38 | PCM.PROG ---
Progress Note Progress Note for Day of Date of Exam: 10/04/21 Subjective Subjective: The patient is alert and awake this morning. He had an EGD done yesterday that showed gastritis in the stomach. There was no active ulcers or bleeding. Dr Rodriguez is planning on doing a colonoscopy on Saturday to rule out a lower GI bleed. Patient's creatinine has improved to 2.22 this morning. Overall, the patient is improving since admission. Hemoglobin is come up from 7.1 to 7.8 grams this morning. Past Medical Family Social History Past Med/Fam/Surg Hx: No changes since H&P Allergies: Allergies Penicillins Allergy (Verified 10/02/21 14:01) Vital Signs and I&O's Vital Signs: Temperature 98 F Pulse Rate 105 Respiratory Rate 24 Blood Pressure [Left Arm] 104/56 Blood Pressure 167/82 O2 Sat by Pulse Oximetry 98 Intake and Output: Intake & Output 10/01/21 10/02/21 10/03/21 10/04/21 11:59 11:59 11:59 11:59 Intake Total 2938 / 2938 4092 / 4092 Output Total 1050 / 1050 3450 / 3450 Balance 1888 / 1888 642 / 642 Physical Exam Oriented: Normal Eyes: Normal Ear: Normal Nose: Normal Throat: Normal Respiratory: Normal Cardiovascular: Normal : Normal Auscultation: Bowel Sounds: Normal Tenderness: Epigastric Skin: Decreased Turgur Musculoskeletal: Left, Shoulder (Left shoulder blade pain. ) and Back:Thoracic (Painful to palpation over the T8 vertebrae. ) Psychiatric: Normal Mood Description: Calm Affect: Normal Speech Pattern: Clear Laboratory and Diagnostics Result Diagrams: 10/04/21 04:40 10/04/21 04:40 Labs: Laboratory WBC 7.8 X10^3/uL (3.6-10.0) 10/04/21 04:40 RBC 2.61 X10^6/uL (4.7-6.0) L 10/04/21 04:40 Hgb 7.8 g/dL (13.5-18.0) L 10/04/21 04:40 Hct 23.9 % (42.0-54.0) L 10/04/21 04:40 MCV 91.6 fL (80.0-100.0) 10/04/21 04:40 MCH 30.1 pg (27.0-34.0) 10/04/21 04:40 MCHC 32.8 g/dL (33.0-35.0) L 10/04/21 04:40 RDW 14.7 % (11.6-16.5) 10/04/21 04:40 Plt Count 244 X10^3/uL (150.0-450.0) 10/04/21 04:40 Plt Count Comment Adequate (ADEQUATE) 10/03/21 04:25 MPV 9.1 fL (7.4-11.0) 10/04/21 04:40 Neut % (Auto) 86.5 % (42.0-75.0) H 10/04/21 04:40 Lymph % (Auto) 5.9 % (21.0-51.0) L 10/04/21 04:40 [place] % (Auto) 5.7 % (0.0-13.0) 10/04/21 04:40 Eos % (Auto) 1.8 % (0.9-2.9) 10/04/21 04:40 Baso % (Auto) 0.1 % (0.2-1.0) L 10/04/21 04:40 Neut # (Auto) 6.8 x10^3/uL (2.2-4.8) H 10/04/21 04:40 Lymph # (Auto) 0.5 X10^3/uL (1.3-2.9) L 10/04/21 04:40 [place] # (Auto) 0.4 x10^3/uL (0.3-0.8) 10/04/21 04:40 Eos # (Auto) 0.1 x10^3/uL (0.0-0.2) 10/04/21 04:40 Baso # (Auto) 0.0 X10^3/uL (0.0-0.1) 10/04/21 04:40 Absolute Nucleated RBC 0.0 /100WBC 10/04/21 04:40 Total Counted 100 10/02/21 14:15 Neutrophils % (Manual) 93 % (39-76) H 10/02/21 14:15 Lymphocytes % (Manual) 6 % (13-43) L 10/02/21 14:15 Monocytes % (Manual) 1 % (4-9) L 10/02/21 14:15 Plt Morphology Comment Normal (NORMAL) 10/03/21 04:25 RBC Morphology Normal (NORMAL) 10/03/21 04:25 PT 14.8 SECONDS (11.8-14.3) 10/03/21 04:25 INR Target Range - 10/03/21 04:25 INR 1.21 (0.8-1.3) 10/03/21 04:25 APTT 20.0 SECONDS (22.9-36.5) L 10/03/21 04:25 PTT Comment - 10/03/21 04:25 Sodium 144 mmol/L (136-145) 10/04/21 04:40 Corrected Sodium TNP 10/04/21 04:40 Potassium 4.8 mmol/L (3.5-5.1) 10/04/21 04:40 Chloride 110 mmol/L (98-107) H 10/04/21 04:40 Carbon Dioxide 22.8 mmol/L (21-32) 10/04/21 04:40 BUN 60 mg/dL (7-18) H 10/04/21 04:40 Creatinine 2.22 mg/dL (0.70-1.30) H 10/04/21 04:40 Est GFR (MDRD) Af Amer 37 (>60) L 10/04/21 04:40 Est GFR (MDRD) Non-Af 31 (>60) L 10/04/21 04:40 Glucose 83 mg/dL (65-99) 10/04/21 04:40 Lactic Acid 2.5 mmol/L (0.4-2.0) H 10/02/21 14:15 Calcium 7.4 mg/dL (8.5-10.1) L 10/04/21 04:40 Corrected Calcium 8.8 mg/dL (8.5-10.1) 10/04/21 04:40 Magnesium 2.3 mg/dL (1.7-2.9) 10/04/21 04:40 Total Bilirubin 0.40 mg/dL (0.2-1.0) 10/04/21 04:40 AST 73 Units/L (15-37) H 10/04/21 04:40 ALT 25 Units/L (12-78) 10/04/21 04:40 Alkaline Phosphatase 135 Units/L (46-116) H 10/04/21 04:40 Creatine Kinase 3255 Units/L (39-308) H 10/03/21 04:25 CK-MB (CK-2) 7.6 ng/mL (0-4.0) H* 10/03/21 04:25 CK/CKMB % Calc 0.2 % (<4) 10/03/21 04:25 Troponin I High Sens 52.3 ng/L (4.0-60.0) 10/03/21 04:25 B-Natriuretic Peptide 28.6 pg/mL (0-79) 10/02/21 14:15 Total Protein 5.0 g/dL (6.4-8.2) L 10/04/21 04:40 Albumin 2.2 g/dL (3.4-5.0) L 10/04/21 04:40 Globulin 2.8 g/dL (2.5-4.5) 10/04/21 04:40 Albumin/Globulin Ratio 0.8 Ratio (1.1-2.1) L 10/04/21 04:40 TSH 3rd Generation 0.859 uIU/mL (0.358-3.74) 10/02/21 14:15 Specimen Type Catherized urine 10/02/21 01:08 Urine Color Yellow (YELLOW) 10/02/21 01:08 Urine Appearance Clear (CLEAR) 10/02/21 01:08 Urine pH 5.0 (5.0 - 8.0) 10/02/21 01:08 Ur Specific [place] 1.020 (1.000-1.030) 10/02/21 01:08 Urine Protein 1+ (NEGATIVE) 10/02/21 01:08 Urine Glucose (UA) Negative (NEGATIVE) 10/02/21 01:08 Urine Ketones Negative (NEGATIVE) 10/02/21 01:08 Urine Occult Blood 1+ (NEGATIVE) 10/02/21 01:08 Urine Nitrite Negative (NEGATIVE) 10/02/21 01:08 Urine Bilirubin 1+ (NEGATIVE) 10/02/21 01:08 Urine Urobilinogen Normal (NORMAL) 10/02/21 01:08 Ur Leukocyte Esterase Negative (NEGATIVE) 10/02/21 01:08 Urine RBC None seen /HPF (0-3) 10/02/21 01:08 Urine WBC None seen /HPF (0-5) 10/02/21 01:08 Ur Squamous Epith Cells Rare /HPF (NEGATIVE) 10/02/21 01:08 Urine Bacteria Negative /HPF (NEGATIVE) 10/02/21 01:08 Ur Culture Indicated? No/not indicated 10/02/21 01:08 Theophylline < 2.0 ug/mL (10-20) L 10/02/21 14:15 SARS-CoV-2 (PCR) Negative (NEGATIVE) 10/02/21 15:58 Influenza Type A (PCR) Negative (NEGATIVE) 10/02/21 15:58 Influenza Type B (PCR) Negative (NEGATIVE) 10/02/21 15:58 RSV (PCR) Negative (NEGATIVE) 10/02/21 15:58 Tissue Pathology To follow 10/03/21 13:10 Plan (1) Acute renal failure: Status: Acute Qualifiers: Acute renal failure type: unspecified Qualified Code(s): N17.9 - Acute kidney failure, unspecified Narrative Support Text: Improving. Plan: Rehydration. (2) Acute dehydration: Status: Acute Plan: Intravenous hydration . (3) Thoracic spine fracture: Status: Acute Qualifiers: Encounter type: initial encounter Fracture morphology: unspecified fracture morphology Fracture type: closed Thoracic vertebra fracture level: T8 Qualified Code(s): S22.069A - Unspecified fracture of T7-T8 vertebra, initial encounter for closed fracture Plan: pain control. (4) Closed left scapular fracture: Status: Acute Qualifiers: Encounter type: initial encounter Fracture alignment: nondisplaced Scapula location: body Qualified Code(s): S42.115A - Nondisplaced fracture of body of scapula, left shoulder, initial encounter for closed fracture Plan: Pain control. (5) Weakness generalized: Status: Acute (6) Fall: Status: Acute Qualifiers: Encounter type: initial encounter Qualified Code(s): W19.XXXA - Unspecified fall, initial encounter (7) Anemia: Status: Acute Narrative Support Text: Improved since yesterday. Plan: Follow up with the patients hemoccult results when available. (8) Complaint of melena: Status: Acute Plan: we'll plan on consulting Dr. Rodriguez. Follow up with patient's hemoccult when available. (9) Rhabdomyolysis: Status: Acute Plan: I'll continue The patient's IV fluid at this time. I will check a CK level this morning and repeat it daily.
[2021-10-04] MEDS: PROTONIX INJ 40 MG VIAL IVP SCH ×2 (09:43→21:37)
[2021-10-04] MEDS: PEPCID TAB 20 MG PO SCH (09:43)
[2021-10-04] MEDS: HEMOCYTE-PLUS PO SCH (09:43)
[2021-10-04] MEDS ORDERED: COLACE CAP 100 MG PO ONE (10:04)
[2021-10-04] MEDS: TOPROL XL PO SCH (10:13)
--- NOTE | 2021-10-04 11:04 | DR.PROGNOT ---
Hospital Progress Notes - Progress Note for Day of: Progress Note Date: 10/04/21 - Chief Complaint Chief Complaint: improving renal function and CK ..110/2.2.... 1726. no active bleeding . no nausea or vomiting .. still very poor historian but alert . moderate abdominal pain . afebrile .. - Past Medical Family Social History Past Med/Fam/Surg Hx: No changes since H&P Allergies: Allergies Penicillins Allergy (Verified 10/02/21 14:01) - Review Of Systems ROS: No change since H&P - Vital Signs Vital Signs: Temperature 98.0 F Pulse Rate 107 Respiratory Rate 23 Blood Pressure [Left Arm] 104/56 Blood Pressure 198/84 O2 Sat by Pulse Oximetry 93 - Physical Exam Oriented: Normal Eyes: Normal Ear: Normal Nose: Normal Throat: Normal Respiratory: Normal Cardiovascular: Normal : Normal GI:Auscultation: Normal GI:Palpation: Normal GI: Tenderness: Epigastric (soft , flat abdomen with tenderness to deep pallation . no rebound .) Skin: Decreased Turgur Musculoskeletal: Shoulder (Left shoulder blade pain.), Left, Back:Thoracic (Painful to palpation over the T8 vertebrae.) Psychiatric: Normal Mood Description: Calm Affect: Normal Speech Pattern: Clear - Laboratory and Diagnostics Result Diagrams: 10/04/21 04:40 10/04/21 04:40 Labs: Laboratory WBC 7.8 X10^3/uL (3.6-10.0) 10/04/21 04:40 RBC 2.61 X10^6/uL (4.7-6.0) L 10/04/21 04:40 Hgb 7.8 g/dL (13.5-18.0) L 10/04/21 04:40 Hct 23.9 % (42.0-54.0) L 10/04/21 04:40 MCV 91.6 fL (80.0-100.0) 10/04/21 04:40 MCH 30.1 pg (27.0-34.0) 10/04/21 04:40 MCHC 32.8 g/dL (33.0-35.0) L 10/04/21 04:40 RDW 14.7 % (11.6-16.5) 10/04/21 04:40 Plt Count 244 X10^3/uL (150.0-450.0) 10/04/21 04:40 Plt Count Comment Adequate (ADEQUATE) 10/03/21 04:25 MPV 9.1 fL (7.4-11.0) 10/04/21 04:40 Neut % (Auto) 86.5 % (42.0-75.0) H 10/04/21 04:40 Lymph % (Auto) 5.9 % (21.0-51.0) L 10/04/21 04:40 [place] % (Auto) 5.7 % (0.0-13.0) 10/04/21 04:40 Eos % (Auto) 1.8 % (0.9-2.9) 10/04/21 04:40 Baso % (Auto) 0.1 % (0.2-1.0) L 10/04/21 04:40 Neut # (Auto) 6.8 x10^3/uL (2.2-4.8) H 10/04/21 04:40 Lymph # (Auto) 0.5 X10^3/uL (1.3-2.9) L 10/04/21 04:40 [place] # (Auto) 0.4 x10^3/uL (0.3-0.8) 10/04/21 04:40 Eos # (Auto) 0.1 x10^3/uL (0.0-0.2) 10/04/21 04:40 Baso # (Auto) 0.0 X10^3/uL (0.0-0.1) 10/04/21 04:40 Absolute Nucleated RBC 0.0 /100WBC 10/04/21 04:40 Total Counted 100 10/02/21 14:15 Neutrophils % (Manual) 93 % (39-76) H 10/02/21 14:15 Lymphocytes % (Manual) 6 % (13-43) L 10/02/21 14:15 Monocytes % (Manual) 1 % (4-9) L 10/02/21 14:15 Plt Morphology Comment Normal (NORMAL) 10/03/21 04:25 RBC Morphology Normal (NORMAL) 10/03/21 04:25 PT 14.8 SECONDS (11.8-14.3) 10/03/21 04:25 INR Target Range - 10/03/21 04:25 INR 1.21 (0.8-1.3) 10/03/21 04:25 APTT 20.0 SECONDS (22.9-36.5) L 10/03/21 04:25 PTT Comment - 10/03/21 04:25 Sodium 144 mmol/L (136-145) 10/04/21 04:40 Corrected Sodium TNP 10/04/21 04:40 Potassium 4.8 mmol/L (3.5-5.1) 10/04/21 04:40 Chloride 110 mmol/L (98-107) H 10/04/21 04:40 Carbon Dioxide 22.8 mmol/L (21-32) 10/04/21 04:40 BUN 60 mg/dL (7-18) H 10/04/21 04:40 Creatinine 2.22 mg/dL (0.70-1.30) H 10/04/21 04:40 Est GFR (MDRD) Af Amer 37 (>60) L 10/04/21 04:40 Est GFR (MDRD) Non-Af 31 (>60) L 10/04/21 04:40 Glucose 83 mg/dL (65-99) 10/04/21 04:40 Lactic Acid 2.5 mmol/L (0.4-2.0) H 10/02/21 14:15 Calcium 7.4 mg/dL (8.5-10.1) L 10/04/21 04:40 Corrected Calcium 8.8 mg/dL (8.5-10.1) 10/04/21 04:40 Magnesium 2.3 mg/dL (1.7-2.9) 10/04/21 04:40 Total Bilirubin 0.40 mg/dL (0.2-1.0) 10/04/21 04:40 AST 73 Units/L (15-37) H 10/04/21 04:40 ALT 25 Units/L (12-78) 10/04/21 04:40 Alkaline Phosphatase 135 Units/L (46-116) H 10/04/21 04:40 Creatine Kinase 1726 Units/L (39-308) H 10/04/21 04:40 CK-MB (CK-2) 7.6 ng/mL (0-4.0) H* 10/03/21 04:25 CK/CKMB % Calc 0.2 % (<4) 10/03/21 04:25 Troponin I High Sens 52.3 ng/L (4.0-60.0) 10/03/21 04:25 B-Natriuretic Peptide 28.6 pg/mL (0-79) 10/02/21 14:15 Total Protein 5.0 g/dL (6.4-8.2) L 10/04/21 04:40 Albumin 2.2 g/dL (3.4-5.0) L 10/04/21 04:40 Globulin 2.8 g/dL (2.5-4.5) 10/04/21 04:40 Albumin/Globulin Ratio 0.8 Ratio (1.1-2.1) L 10/04/21 04:40 TSH 3rd Generation 0.859 uIU/mL (0.358-3.74) 10/02/21 14:15 Specimen Type Catherized urine 10/02/21 01:08 Urine Color Yellow (YELLOW) 10/02/21 01:08 Urine Appearance Clear (CLEAR) 10/02/21 01:08 Urine pH 5.0 (5.0 - 8.0) 10/02/21 01:08 Ur Specific [place] 1.020 (1.000-1.030) 10/02/21 01:08 Urine Protein 1+ (NEGATIVE) 10/02/21 01:08 Urine Glucose (UA) Negative (NEGATIVE) 10/02/21 01:08 Urine Ketones Negative (NEGATIVE) 10/02/21 01:08 Urine Occult Blood 1+ (NEGATIVE) 10/02/21 01:08 Urine Nitrite Negative (NEGATIVE) 10/02/21 01:08 Urine Bilirubin 1+ (NEGATIVE) 10/02/21 01:08 Urine Urobilinogen Normal (NORMAL) 10/02/21 01:08 Ur Leukocyte Esterase Negative (NEGATIVE) 10/02/21 01:08 Urine RBC None seen /HPF (0-3) 10/02/21 01:08 Urine WBC None seen /HPF (0-5) 10/02/21 01:08 Ur Squamous Epith Cells Rare /HPF (NEGATIVE) 10/02/21 01:08 Urine Bacteria Negative /HPF (NEGATIVE) 10/02/21 01:08 Ur Culture Indicated? No/not indicated 10/02/21 01:08 Theophylline < 2.0 ug/mL (10-20) L 10/02/21 14:15 SARS-CoV-2 (PCR) Negative (NEGATIVE) 10/02/21 15:58 Influenza Type A (PCR) Negative (NEGATIVE) 10/02/21 15:58 Influenza Type B (PCR) Negative (NEGATIVE) 10/02/21 15:58 RSV (PCR) Negative (NEGATIVE) 10/02/21 15:58 Tissue Pathology To follow 10/03/21 13:10 - Assessment and Plan 1: he has Aemia with iron deficiency . renal failure is improving with hydration.. other Dx's as before .. for colonoscopy in 09/25 21 - Problem Patient Problems: Patient Problems Acute renal failure (Acute) N17.9 Acute dehydration (Acute) E86.0 Thoracic spine fracture (Acute) S22.009A Closed left scapular fracture (Acute) S42.102A Weakness generalized (Acute) R53.1 Fall (Acute) W19.XXXA
[2021-10-04] MEDS ORDERED: VALIUM INJ ONE (18:20)
[2021-10-04] MEDS: VALIUM INJ IVP PRN (18:23)
[2021-10-05] MEDS: NS 1,000 ML IV 1,000 ML IV SCH ×4 (01:00→15:17)
[2021-10-05 04:58] LABS: BASOPHILS % (AUTO) 0.3 % (0.2-1.0); EOSINOPHILS # (AUTO) 0.2 x10^3/uL (0.0-0.2); EOSINOPHILS % (AUTO) 2.8 % (0.9-2.9); HEMATOCRIT 24.6 % (42.0-54.0); HEMOGLOBIN 8.3 g/dL (13.5-18.0); LYMPHOCYTES # (AUTO) 0.6 X10^3/uL (1.3-2.9); LYMPHOCYTES % (AUTO) 7.6 % (21.0-51.0); MEAN CORPUSCULAR HEMOGLOBIN 30.4 pg (27.0-34.0); MEAN CORPUSCULAR HGB CONC 33.6 g/dL (33.0-35.0); MEAN CORPUSCULAR VOLUME 90.6 fL (80.0-100.0); MEAN PLATELET VOLUME 8.7 fL (7.4-11.0); MONOCYTES # (AUTO) 0.5 x10^3/uL (0.3-0.8); MONOCYTES % (AUTO) 7.2 % (0.0-13.0); NEUTROPHILS # (AUTO) 6.2 x10^3/uL (2.2-4.8); NEUTROPHILS % (AUTO) 82.1 % (42.0-75.0); RED BLOOD COUNT 2.72 X10^6/uL (4.7-6.0); RED CELL DISTRIBUTION WIDTH 14.4 % (11.6-16.5); WHITE BLOOD COUNT 7.5 X10^3/uL (3.6-10.0)
[2021-10-05 05:08] LABS: ALANINE AMINOTRANSFERASE 24 Units/L (12-78); ALBUMIN 2.2 g/dL (3.4-5.0); ALKALINE PHOSPHATASE 138 Units/L (46-116); ASPARTATE AMINO TRANSFERASE 59 Units/L (15-37); BLOOD UREA NITROGEN 29 mg/dL (7-18); CARBON DIOXIDE 25.5 mmol/L (21-32); CHLORIDE 110 mmol/L (98-107); COR CA(FOR HYPOALB) 9.4 mg/dL (8.5-10.1); CREATININE 1.28 mg/dL (0.70-1.30); SODIUM 144 mmol/L (136-145); TOTAL PROTEIN 5.6 g/dL (6.4-8.2); eGFR NON BLACK RACES 58 (>60)
[2021-10-05] MEDS ORDERED: PATIENT'S HOME MEDICATION (Lisinopril-Hydrochlorothiazide 20-12.5 mg tablet) PO SCH (09:00)
[2021-10-05] MEDS ORDERED: [UNRECOGNIZED DRUG - OTHER] PO SCH (09:00)
[2021-10-05] MEDS ORDERED: FERROUS SULFATE PO SCH (09:00)
[2021-10-05] MEDS ORDERED: ZESTRIL TAB 20 MG ONE (09:50)
[2021-10-05] MEDS: PEPCID TAB 20 MG PO SCH (09:51)
[2021-10-05] MEDS: ZESTRIL TAB 20 MG PO SCH (09:52)
[2021-10-05] MEDS: HEMOCYTE-PLUS PO SCH (09:52)
[2021-10-05] MEDS: PROTONIX INJ 40 MG VIAL IVP SCH ×2 (09:52→20:45)
[2021-10-05] MEDS: HYDROCHLOROTHIAZIDE 12.5 MG CAP PO SCH (09:52)
[2021-10-05] MEDS: TOPROL XL PO SCH (09:52)
--- NOTE | 2021-10-05 09:55 | PCM.PROG ---
Progress Note Progress Note for Day of Date of Exam: 10/05/21 Subjective Subjective: The patient is alert and awake this morning. Yesterday afternoon the patient was having some agitation and restlessness. I ordered Valium for this and it seemed to help him relax. No other new problems noted. Past Medical Family Social History Past Med/Fam/Surg Hx: No changes since H&P Allergies: Allergies Penicillins Allergy (Verified 10/02/21 14:01) Review of Systems ROS: No change since H&P Vital Signs and I&O's Vital Signs: Temperature 98.5 F Pulse Rate 80 Respiratory Rate 17 Blood Pressure [Left Arm] 104/56 Blood Pressure 153/84 O2 Sat by Pulse Oximetry 100 Intake and Output: Intake & Output 10/02/21 10/03/21 10/04/21 10/05/21 11:59 11:59 11:59 11:59 Intake Total 2938 / 2938 4092 / 4092 2532 / 2532 Output Total 1050 / 1050 3450 / 3450 2400 / 2400 Balance 1888 / 1888 642 / 642 132 / 132 Physical Exam Oriented: Normal Eyes: Normal Ear: Normal Nose: Normal Throat: Normal Respiratory: Normal Cardiovascular: Normal : Normal Auscultation: Bowel Sounds: Normal Tenderness: Epigastric (soft , flat abdomen with tenderness to deep pallation . no rebound .) Skin: Decreased Turgur Musculoskeletal: Left, Shoulder (Left shoulder blade pain. ) and Back:Thoracic (Painful to palpation over the T8 vertebrae. ) Psychiatric: Normal Mood Description: Calm Affect: Normal Speech Pattern: Inappropriate Laboratory and Diagnostics Result Diagrams: 10/05/21 04:35 10/05/21 04:35 Labs: 10/02/21 15:33 Blood Blood Culture - Preliminary 10/02/21 15:27 Blood Blood Culture - Preliminary Laboratory WBC 7.5 X10^3/uL (3.6-10.0) 10/05/21 04:35 RBC 2.72 X10^6/uL (4.7-6.0) L 10/05/21 04:35 Hgb 8.3 g/dL (13.5-18.0) L 10/05/21 04:35 Hct 24.6 % (42.0-54.0) L 10/05/21 04:35 MCV 90.6 fL (80.0-100.0) 10/05/21 04:35 MCH 30.4 pg (27.0-34.0) 10/05/21 04:35 MCHC 33.6 g/dL (33.0-35.0) 10/05/21 04:35 RDW 14.4 % (11.6-16.5) 10/05/21 04:35 Plt Count 248 X10^3/uL (150.0-450.0) 10/05/21 04:35 Plt Count Comment Adequate (ADEQUATE) 10/03/21 04:25 MPV 8.7 fL (7.4-11.0) 10/05/21 04:35 Neut % (Auto) 82.1 % (42.0-75.0) H 10/05/21 04:35 Lymph % (Auto) 7.6 % (21.0-51.0) L 10/05/21 04:35 [place] % (Auto) 7.2 % (0.0-13.0) 10/05/21 04:35 Eos % (Auto) 2.8 % (0.9-2.9) 10/05/21 04:35 Baso % (Auto) 0.3 % (0.2-1.0) 10/05/21 04:35 Neut # (Auto) 6.2 x10^3/uL (2.2-4.8) H 10/05/21 04:35 Lymph # (Auto) 0.6 X10^3/uL (1.3-2.9) L 10/05/21 04:35 [place] # (Auto) 0.5 x10^3/uL (0.3-0.8) 10/05/21 04:35 Eos # (Auto) 0.2 x10^3/uL (0.0-0.2) 10/05/21 04:35 Baso # (Auto) 0.0 X10^3/uL (0.0-0.1) 10/05/21 04:35 Absolute Nucleated RBC 0.0 /100WBC 10/05/21 04:35 Total Counted 100 10/02/21 14:15 Neutrophils % (Manual) 93 % (39-76) H 10/02/21 14:15 Lymphocytes % (Manual) 6 % (13-43) L 10/02/21 14:15 Monocytes % (Manual) 1 % (4-9) L 10/02/21 14:15 Plt Morphology Comment Normal (NORMAL) 10/03/21 04:25 RBC Morphology Normal (NORMAL) 10/03/21 04:25 PT 14.8 SECONDS (11.8-14.3) 10/03/21 04:25 INR Target Range - 10/03/21 04:25 INR 1.21 (0.8-1.3) 10/03/21 04:25 APTT 20.0 SECONDS (22.9-36.5) L 10/03/21 04:25 PTT Comment - 10/03/21 04:25 Sodium 144 mmol/L (136-145) 10/05/21 04:35 Corrected Sodium TNP 10/05/21 04:35 Potassium 4.7 mmol/L (3.5-5.1) 10/05/21 04:35 Chloride 110 mmol/L (98-107) H 10/05/21 04:35 Carbon Dioxide 25.5 mmol/L (21-32) 10/05/21 04:35 BUN 29 mg/dL (7-18) H 10/05/21 04:35 Creatinine 1.28 mg/dL (0.70-1.30) 10/05/21 04:35 Est GFR (MDRD) Af Amer > 60 (>60) 10/05/21 04:35 Est GFR (MDRD) Non-Af 58 (>60) L 10/05/21 04:35 Glucose 80 mg/dL (65-99) 10/05/21 04:35 Lactic Acid 2.5 mmol/L (0.4-2.0) H 10/02/21 14:15 Calcium 8.0 mg/dL (8.5-10.1) L 10/05/21 04:35 Corrected Calcium 9.4 mg/dL (8.5-10.1) 10/05/21 04:35 Magnesium 2.3 mg/dL (1.7-2.9) 10/04/21 04:40 Iron 14 ug/dL (50-175) L 10/04/21 04:46 Transferrin 154 mg/dL (202-364) L 10/04/21 04:46 Ferritin 245 ng/mL (26-388) 10/04/21 04:46 Total Bilirubin 0.50 mg/dL (0.2-1.0) 10/05/21 04:35 AST 59 Units/L (15-37) H 10/05/21 04:35 ALT 24 Units/L (12-78) 10/05/21 04:35 Alkaline Phosphatase 138 Units/L (46-116) H 10/05/21 04:35 Creatine Kinase 1726 Units/L (39-308) H 10/04/21 04:40 CK-MB (CK-2) 7.6 ng/mL (0-4.0) H* 10/03/21 04:25 CK/CKMB % Calc 0.2 % (<4) 10/03/21 04:25 Troponin I High Sens 52.3 ng/L (4.0-60.0) 10/03/21 04:25 B-Natriuretic Peptide 28.6 pg/mL (0-79) 10/02/21 14:15 Total Protein 5.6 g/dL (6.4-8.2) L 10/05/21 04:35 Albumin 2.2 g/dL (3.4-5.0) L 10/05/21 04:35 Globulin 3.4 g/dL (2.5-4.5) 10/05/21 04:35 Albumin/Globulin Ratio 0.6 Ratio (1.1-2.1) L 10/05/21 04:35 Vitamin B12 577 pg/mL (193-986) 10/04/21 04:46 Folate 6.6 ng/mL (>8.6) L 10/04/21 04:46 TSH 3rd Generation 0.859 uIU/mL (0.358-3.74) 10/02/21 14:15 Specimen Type Catherized urine 10/02/21 01:08 Urine Color Yellow (YELLOW) 10/02/21 01:08 Urine Appearance Clear (CLEAR) 10/02/21 01:08 Urine pH 5.0 (5.0 - 8.0) 10/02/21 01:08 Ur Specific [place] 1.020 (1.000-1.030) 10/02/21 01:08 Urine Protein 1+ (NEGATIVE) 10/02/21 01:08 Urine Glucose (UA) Negative (NEGATIVE) 10/02/21 01:08 Urine Ketones Negative (NEGATIVE) 10/02/21 01:08 Urine Occult Blood 1+ (NEGATIVE) 10/02/21 01:08 Urine Nitrite Negative (NEGATIVE) 10/02/21 01:08 Urine Bilirubin 1+ (NEGATIVE) 10/02/21 01:08 Urine Urobilinogen Normal (NORMAL) 10/02/21 01:08 Ur Leukocyte Esterase Negative (NEGATIVE) 10/02/21 01:08 Urine RBC None seen /HPF (0-3) 10/02/21 01:08 Urine WBC None seen /HPF (0-5) 10/02/21 01:08 Ur Squamous Epith Cells Rare /HPF (NEGATIVE) 10/02/21 01:08 Urine Bacteria Negative /HPF (NEGATIVE) 10/02/21 01:08 Ur Culture Indicated? No/not indicated 10/02/21 01:08 Stool Description Fob tube 10/04/21 19:50 Stl Occult Blood (IFOB) Negative (NEGATIVE) 10/04/21 19:50 Theophylline < 2.0 ug/mL (10-20) L 10/02/21 14:15 SARS-CoV-2 (PCR) Negative (NEGATIVE) 10/02/21 15:58 Influenza Type A (PCR) Negative (NEGATIVE) 10/02/21 15:58 Influenza Type B (PCR) Negative (NEGATIVE) 10/02/21 15:58 RSV (PCR) Negative (NEGATIVE) 10/02/21 15:58 Tissue Pathology To follow 10/03/21 13:10 Plan (1) HTN (hypertension): Status: Acute Qualifiers: Hypertension type: unspecified Qualified Code(s): I10 - Essential (primary) hypertension Plan: The patient is being started on Metoprolol ER 50 mg PO Q day. (2) Thoracic spine fracture: Status: Acute Qualifiers: Encounter type: initial encounter Fracture morphology: unspecified fracture morphology Fracture type: closed Thoracic vertebra fracture level: T8 Qualified Code(s): S22.069A - Unspecified fracture of T7-T8 vertebra, initial encounter for closed fracture Plan: pain control. (3) Closed left scapular fracture: Status: Acute Qualifiers: Encounter type: initial encounter Fracture alignment: nondisplaced Scapula location: body Qualified Code(s): S42.115A - Nondisplaced fracture of b jessenia of scapula, left shoulder, initial encounter for closed fracture Plan: Pain control. (4) Weakness generalized: Status: Acute Narrative Support Text: The patient's generalized weakness has improved. (5) Fall: Status: Acute Qualifiers: Encounter type: initial encounter Qualified Code(s): W19.XXXA - Unspecified fall, initial encounter (6) Anemia: Status: Acute Qualifiers: Anemia type: iron deficiency Plan: The patient's iron panel from yesterday shows that he is iron deficiency anemia and also a low folate level. The patient is having a colonoscopy tomorrow to rule out a bleed. (7) Complaint of melena: Status: Acute Plan: we'll plan on consulting Dr. Rodriguez. Follow up with patient's hemoccult when available. (8) Rhabdomyolysis: Status: Acute Narrative Support Text: The patients CK level has been trending down. I'm still currently awaiting his CK level this morning. Plan: I'll continue The patient's IV fluid at this time. I will check a CK level this morning and repeat it daily. (9) Acute dehydration: Status: Resolved Plan: Intravenous hydration . (10) Acute renal failure: Status: Resolved Qualifiers: Acute renal failure type: unspecified Qualified Code(s): N17.9 - Acute kidney failure, unspecified Narrative Support Text: The patient's Creatinine level this morning has improved to 1.28.
[2021-10-05] MEDS: VALIUM INJ IVP PRN (14:00)
[2021-10-05] MEDS ORDERED: GOLYTELY or GAVILYTE or Equivalent PO NR (16:00)
[2021-10-05] MEDS: CITROMA PO ONE (16:58)
[2021-10-05] MEDS: ULTRAM PO PRN (19:33)
[2021-10-06] MEDS: CITROMA PO ONE (03:58)
[2021-10-06] MEDS: NS 1,000 ML IV 1,000 ML IV SCH ×3 (03:59→16:58)
[2021-10-06 04:55] LABS: BASOPHILS % (AUTO) 0.4 % (0.2-1.0); EOSINOPHILS # (AUTO) 0.3 x10^3/uL (0.0-0.2); EOSINOPHILS % (AUTO) 2.9 % (0.9-2.9); HEMATOCRIT 27.6 % (42.0-54.0); LYMPHOCYTES # (AUTO) 0.7 X10^3/uL (1.3-2.9); LYMPHOCYTES % (AUTO) 7.6 % (21.0-51.0); MEAN CORPUSCULAR HGB CONC 32.8 g/dL (33.0-35.0); MEAN CORPUSCULAR VOLUME 91.7 fL (80.0-100.0); MEAN PLATELET VOLUME 8.4 fL (7.4-11.0); MONOCYTES # (AUTO) 0.6 x10^3/uL (0.3-0.8); MONOCYTES % (AUTO) 6.6 % (0.0-13.0); NEUTROPHILS # (AUTO) 7.6 x10^3/uL (2.2-4.8); NEUTROPHILS % (AUTO) 82.5 % (42.0-75.0); RED BLOOD COUNT 3.01 X10^6/uL (4.7-6.0); RED CELL DISTRIBUTION WIDTH 14.6 % (11.6-16.5); WHITE BLOOD COUNT 9.2 X10^3/uL (3.6-10.0)
[2021-10-06 05:00] LABS: ALANINE AMINOTRANSFERASE 24 Units/L (12-78); ALBUMIN 2.3 g/dL (3.4-5.0); ALKALINE PHOSPHATASE 147 Units/L (46-116); ASPARTATE AMINO TRANSFERASE 45 Units/L (15-37); BLOOD UREA NITROGEN 22 mg/dL (7-18); CALCIUM 8.1 mg/dL (8.5-10.1); CARBON DIOXIDE 26.7 mmol/L (21-32); CHLORIDE 109 mmol/L (98-107); COR CA(FOR HYPOALB) 9.5 mg/dL (8.5-10.1); CREATININE 1.14 mg/dL (0.70-1.30); SODIUM 144 mmol/L (136-145); TOTAL PROTEIN 5.9 g/dL (6.4-8.2); eGFR NON BLACK RACES > 60 (>60)
[2021-10-06] MEDS ORDERED: ZESTRIL TAB 20 MG ONE (08:09)
[2021-10-06] MEDS: ZESTRIL TAB 20 MG PO SCH (09:00)
[2021-10-06] MEDS: HEMOCYTE-PLUS PO SCH (09:00)
[2021-10-06] MEDS: PROTONIX INJ 40 MG VIAL IVP SCH ×2 (09:00→20:52)
[2021-10-06] MEDS: HYDROCHLOROTHIAZIDE 12.5 MG CAP PO SCH (09:01)
[2021-10-06] MEDS: TOPROL XL PO SCH (09:01)
[2021-10-06] MEDS: PEPCID TAB 20 MG PO SCH (09:02)
[2021-10-06] MEDS: LASIX PO PRN (09:05)
[2021-10-06] MEDS ORDERED: NS 1,000 ML IV 1,000 ML ONE (09:19)
[2021-10-06] MEDS ORDERED: DIPRIVAN VIAL 20 ML ONE (09:23)
[2021-10-06] MEDS ORDERED: KETAMINE 50 MG/5 ML-NACL SYRNG ONE (09:28)
[2021-10-06] MEDS ORDERED: EPHEDRINE SULFATE INJ ONE (09:45)
[2021-10-06] MEDS ORDERED: STERILE WATER IRRIGATION IR ONE (15:10)
[2021-10-06] MEDS: ULTRAM PO PRN (20:53)
[2021-10-06] MEDS: ZOFRAN INJ 4 MG VIAL IVP PRN (20:53)
[2021-10-07] MEDS: VALIUM INJ IVP PRN (00:44)
[2021-10-07] MEDS: NS 1,000 ML IV 1,000 ML IV SCH ×4 (02:23→16:00)
[2021-10-07 05:32] LABS: BASOPHILS # (AUTO) 0.1 X10^3/uL (0.0-0.1); BASOPHILS % (AUTO) 0.5 % (0.2-1.0); EOSINOPHILS # (AUTO) 0.2 x10^3/uL (0.0-0.2); EOSINOPHILS % (AUTO) 2.2 % (0.9-2.9); HEMATOCRIT 24.7 % (42.0-54.0); HEMOGLOBIN 8.2 g/dL (13.5-18.0); LYMPHOCYTES # (AUTO) 0.7 X10^3/uL (1.3-2.9); LYMPHOCYTES % (AUTO) 7.1 % (21.0-51.0); MEAN CORPUSCULAR HGB CONC 33.2 g/dL (33.0-35.0); MEAN CORPUSCULAR VOLUME 90.3 fL (80.0-100.0); MEAN PLATELET VOLUME 8.9 fL (7.4-11.0); MONOCYTES # (AUTO) 0.6 x10^3/uL (0.3-0.8); MONOCYTES % (AUTO) 6.4 % (0.0-13.0); NEUTROPHILS # (AUTO) 8.4 x10^3/uL (2.2-4.8); NEUTROPHILS % (AUTO) 83.8 % (42.0-75.0); RED BLOOD COUNT 2.74 X10^6/uL (4.7-6.0); RED CELL DISTRIBUTION WIDTH 14.7 % (11.6-16.5); WHITE BLOOD COUNT 10.1 X10^3/uL (3.6-10.0)
[2021-10-07 05:41] LABS: ALANINE AMINOTRANSFERASE 21 Units/L (12-78); ALBUMIN 2.1 g/dL (3.4-5.0); ALKALINE PHOSPHATASE 137 Units/L (46-116); ASPARTATE AMINO TRANSFERASE 30 Units/L (15-37); BLOOD UREA NITROGEN 17 mg/dL (7-18); CALCIUM 7.7 mg/dL (8.5-10.1); CHLORIDE 107 mmol/L (98-107); COR CA(FOR HYPOALB) 9.2 mg/dL (8.5-10.1); SODIUM 144 mmol/L (136-145); TOTAL PROTEIN 5.5 g/dL (6.4-8.2); eGFR NON BLACK RACES > 60 (>60)
[2021-10-07] MEDS: ZOFRAN INJ 4 MG VIAL IVP PRN (05:46)
[2021-10-07] MEDS ORDERED: POTASSIUM CHLORIDE LIQ 20 MEQ UDC PO PRN (05:54)
[2021-10-07] MEDS ORDERED: POTASSIUM CHLORIDE LIQ 20 MEQ UDC ONE (05:56)
[2021-10-07] MEDS: MAGNESIUM SULFATE 1 GRAM/100 mL PREMIX 1 G/100 ML BAG IV PRN ×2 (06:19→10:14)
[2021-10-07] MEDS ORDERED: ZESTRIL TAB 20 MG ONE (08:56)
[2021-10-07] MEDS: PROTONIX INJ 40 MG VIAL IVP SCH ×2 (08:59→20:14)
[2021-10-07] MEDS: PEPCID TAB 20 MG PO SCH (08:59)
[2021-10-07] MEDS: TOPROL XL PO SCH (08:59)
[2021-10-07] MEDS: HEMOCYTE-PLUS PO SCH (08:59)
[2021-10-07] MEDS: ZESTRIL TAB 20 MG PO SCH (09:00)
[2021-10-07] MEDS: HYDROCHLOROTHIAZIDE 12.5 MG CAP PO SCH (09:00)
[2021-10-07] MEDS: THORAZINE INJ 25 MG AMP IVP PRN (09:14)
--- NOTE | 2021-10-07 15:53 | PCM.PROG ---
Progress Note Progress Note for Day of Date of Exam: 10/06/21 Subjective Subjective: The patient is alert and awake this morning. One of his family member is present this morning as well. I discussed her colonoscopy up which was to be done later that morning. Depending on the findings of what we find depend on the number of days we keep him explained to her. I do suspect that he will likely need a physical rehabilitation given his increased number of falls recently with a T8 fracture of his vertebra and a scapular fracture as well. We will get with physical therapy and get their recommendations on what they think about this. Past Medical Family Social History Past Med/Fam/Surg Hx: No changes since H&P Allergies: Allergies Penicillins Allergy (Verified 10/02/21 14:01) Review of Systems ROS: No change since H&P Vital Signs and I&O's Vital Signs: Temperature 98.4 F Pulse Rate 78 Respiratory Rate 34 Blood Pressure [Left Arm] 104/56 Blood Pressure 111/60 O2 Sat by Pulse Oximetry 100 Intake and Output: Intake & Output 10/05/21 10/06/21 10/07/21 10/08/21 11:59 11:59 11:59 11:59 Intake Total 2532 / 2532 3273 / 3273 1069 / 1069 1012 / 1012 Output Total 2400 / 2400 1775 / 1775 1300 / 1300 400 / 400 Balance 132 / 132 1498 / 1498 -231 / -231 612 / 612 Physical Exam Oriented: Normal Eyes: Normal Ear: Normal Nose: Normal Throat: Normal Respiratory: Normal Cardiovascular: Normal : Normal Auscultation: Bowel Sounds: Normal Tenderness: Epigastric (soft , flat abdomen with tenderness to deep pallation . no rebound .) Skin: Decreased Turgur Musculoskeletal: Left, Shoulder (Left shoulder blade pain. ) and Back:Thoracic (Painful to palpation over the T8 vertebrae. ) Psychiatric: Normal Mood Description: Calm Affect: Normal Speech Pattern: Clear Laboratory and Diagnostics Result Diagrams: 10/07/21 04:56 10/07/21 04:56 Labs: 10/02/21 15:33 Blood Blood Culture - Preliminary 10/02/21 15:27 Blood Blood Culture - Preliminary Laboratory WBC 10.1 X10^3/uL (3.6-10.0) H 10/07/21 04:56 RBC 2.74 X10^6/uL (4.7-6.0) L 10/07/21 04:56 Hgb 8.2 g/dL (13.5-18.0) L 10/07/21 04:56 Hct 24.7 % (42.0-54.0) L 10/07/21 04:56 MCV 90.3 fL (80.0-100.0) 10/07/21 04:56 MCH 30.0 pg (27.0-34.0) 10/07/21 04:56 MCHC 33.2 g/dL (33.0-35.0) 10/07/21 04:56 RDW 14.7 % (11.6-16.5) 10/07/21 04:56 Plt Count 234 X10^3/uL (150.0-450.0) 10/07/21 04:56 Plt Count Comment Adequate (ADEQUATE) 10/03/21 04:25 MPV 8.9 fL (7.4-11.0) 10/07/21 04:56 Neut % (Auto) 83.8 % (42.0-75.0) H 10/07/21 04:56 Lymph % (Auto) 7.1 % (21.0-51.0) L 10/07/21 04:56 [place] % (Auto) 6.4 % (0.0-13.0) 10/07/21 04:56 Eos % (Auto) 2.2 % (0.9-2.9) 10/07/21 04:56 Baso % (Auto) 0.5 % (0.2-1.0) 10/07/21 04:56 Neut # (Auto) 8.4 x10^3/uL (2.2-4.8) H 10/07/21 04:56 Lymph # (Auto) 0.7 X10^3/uL (1.3-2.9) L 10/07/21 04:56 [place] # (Auto) 0.6 x10^3/uL (0.3-0.8) 10/07/21 04:56 Eos # (Auto) 0.2 x10^3/uL (0.0-0.2) 10/07/21 04:56 Baso # (Auto) 0.1 X10^3/uL (0.0-0.1) 10/07/21 04:56 Absolute Nucleated RBC 0.0 /100WBC 10/07/21 04:56 Total Counted 100 10/02/21 14:15 Neutrophils % (Manual) 93 % (39-76) H 10/02/21 14:15 Lymphocytes % (Manual) 6 % (13-43) L 10/02/21 14:15 Monocytes % (Manual) 1 % (4-9) L 10/02/21 14:15 Plt Morphology Comment Normal (NORMAL) 10/03/21 04:25 RBC Morphology Normal (NORMAL) 10/03/21 04:25 PT 14.8 SECONDS (11.8-14.3) 10/03/21 04:25 INR Target Range - 10/03/21 04:25 INR 1.21 (0.8-1.3) 10/03/21 04:25 APTT 20.0 SECONDS (22.9-36.5) L 10/03/21 04:25 PTT Comment - 10/03/21 04:25 Sodium 144 mmol/L (136-145) 10/07/21 04:56 Corrected Sodium TNP 10/07/21 04:56 Potassium 3.8 mmol/L (3.5-5.1) 10/07/21 04:56 Chloride 107 mmol/L (98-107) 10/07/21 04:56 Carbon Dioxide 31.0 mmol/L (21-32) 10/07/21 04:56 BUN 17 mg/dL (7-18) 10/07/21 04:56 Creatinine 1.10 mg/dL (0.70-1.30) 10/07/21 04:56 Est GFR (MDRD) Af Amer > 60 (>60) 10/07/21 04:56 Est GFR (MDRD) Non-Af > 60 (>60) 10/07/21 04:56 Glucose 108 mg/dL (65-99) H 10/07/21 04:56 Lactic Acid 2.5 mmol/L (0.4-2.0) H 10/02/21 14:15 Calcium 7.7 mg/dL (8.5-10.1) L 10/07/21 04:56 Corrected Calcium 9.2 mg/dL (8.5-10.1) 10/07/21 04:56 Magnesium 1.6 mg/dL (1.7-2.9) L 10/07/21 04:56 Iron 14 ug/dL (50-175) L 10/04/21 04:46 Transferrin 154 mg/dL (202-364) L 10/04/21 04:46 Ferritin 245 ng/mL (26-388) 10/04/21 04:46 Total Bilirubin 0.30 mg/dL (0.2-1.0) 10/07/21 04:56 AST 30 Units/L (15-37) 10/07/21 04:56 ALT 21 Units/L (12-78) 10/07/21 04:56 Alkaline Phosphatase 137 Units/L (46-116) H 10/07/21 04:56 Creatine Kinase 1726 Units/L (39-308) H 10/04/21 04:40 CK-MB (CK-2) 7.6 ng/mL (0-4.0) H* 10/03/21 04:25 CK/CKMB % Calc 0.2 % (<4) 10/03/21 04:25 Troponin I High Sens 52.3 ng/L (4.0-60.0) 10/03/21 04:25 B-Natriuretic Peptide 470 pg/mL (0-79) H 10/06/21 04:40 Total Protein 5.5 g/dL (6.4-8.2) L 10/07/21 04:56 Albumin 2.1 g/dL (3.4-5.0) L 10/07/21 04:56 Globulin 3.4 g/dL (2.5-4.5) 10/07/21 04:56 Albumin/Globulin Ratio 0.6 Ratio (1.1-2.1) L 10/07/21 04:56 Vitamin B12 577 pg/mL (193-986) 10/04/21 04:46 Folate 6.6 ng/mL (>8.6) L 10/04/21 04:46 TSH 3rd Generation 0.859 uIU/mL (0.358-3.74) 10/02/21 14:15 Specimen Type Catherized urine 10/02/21 01:08 Urine Color Yellow (YELLOW) 10/02/21 01:08 Urine Appearance Clear (CLEAR) 10/02/21 01:08 Urine pH 5.0 (5.0 - 8.0) 10/02/21 01:08 Ur Specific [place] 1.020 (1.000-1.030) 10/02/21 01:08 Urine Protein 1+ (NEGATIVE) 10/02/21 01:08 Urine Glucose (UA) Negative (NEGATIVE) 10/02/21 01:08 Urine Ketones Negative (NEGATIVE) 10/02/21 01:08 Urine Occult Blood 1+ (NEGATIVE) 10/02/21 01:08 Urine Nitrite Negative (NEGATIVE) 10/02/21 01:08 Urine Bilirubin 1+ (NEGATIVE) 10/02/21 01:08 Urine Urobilinogen Normal (NORMAL) 10/02/21 01:08 Ur Leukocyte Esterase Negative (NEGATIVE) 10/02/21 01:08 Urine RBC None seen /HPF (0-3) 10/02/21 01:08 Urine WBC None seen /HPF (0-5) 10/02/21 01:08 Ur Squamous Epith Cells Rare /HPF (NEGATIVE) 10/02/21 01:08 Urine Bacteria Negative /HPF (NEGATIVE) 10/02/21 01:08 Ur Culture Indicated? No/not indicated 10/02/21 01:08 Stool Description Fob tube 10/04/21 19:50 Stl Occult Blood (IFOB) Negative (NEGATIVE) 10/04/21 19:50 Theophylline < 2.0 ug/mL (10-20) L 10/02/21 14:15 SARS-CoV-2 (PCR) Negative (NEGATIVE) 10/02/21 15:58 Influenza Type A (PCR) Negative (NEGATIVE) 10/02/21 15:58 Influenza Type B (PCR) Negative (NEGATIVE) 10/02/21 15:58 RSV (PCR) Negative (NEGATIVE) 10/02/21 15:58 Tissue Pathology To follow 10/03/21 13:10 Plan (1) HTN (hypertension): Status: Acute Qualifiers: Hypertension type: unspecified Qualified Code(s): I10 - Essential (primary) hypertension Plan: The patient is being started on Metoprolol ER 50 mg PO Q day. (2) Thoracic spine fracture: Status: Acute Qualifiers: Encounter type: initial encounter Fracture morphology: unspecified fracture morphology Fracture type: closed Thoracic vertebra fracture level: T8 Qualified Code(s): S22.069A - Unspecified fracture of T7-T8 vertebra, initial encounter for closed fracture Plan: pain control. (3) Closed left scapular fracture: Status: Acute Qualifiers: Encounter type: initial encounter Fracture alignment: nondisplaced Scapula location: body Qualified Code(s): S42.115A - Nondisplaced fracture of body of scapula, left shoulder, initial encounter for closed fracture Plan: Pain control. (4) Weakness generalized: Status: Acute (5) Fall: Status: Acute Qualifiers: Encounter type: initial encounter Qualified Code(s): W19.XXXA - Unspecified fall, initial encounter (6) Anemia: Status: Acute Qualifiers: Anemia type: iron deficiency Plan: The patient's iron panel from yesterday shows that he is iron deficiency anemia and also a low folate level. The patient is having a colonoscopy tomorrow to rule out a bleed. (7) Complaint of melena: Status: Acute Plan: we'll plan on consulting Dr. Rodriguez. Follow up with patient's hemoccult when available. (8) Rhabdomyolysis: Status: Acute Plan: I'll continue The patient's IV fluid at this time. I will check a CK level this morning and repeat it daily. (9) Acute dehydration: Status: Resolved Plan: Intravenous hydration . (10) Acute renal failure: Status: Resolved Qualifiers: Acute renal failure type: unspecified Qualified Code(s): N17.9 - Acute kidney failure, unspecified Plan: I will change his IV fluid to kvo this morning.
--- NOTE | 2021-10-07 15:58 | PCM.PROG ---
Progress Note Progress Note for Day of Date of Exam: 10/07/21 Subjective Subjective: The patient is awake this morning. He still seems confused about answering questions. No family members are present this morning. I have already discussed possible temporary physical therapy rehab with a case coordinators and we will decide in a couple of days if the family is in agreement to send him for inpatient rehab. Past Medical Family Social History Past Med/Fam/Surg Hx: No changes since H&P Allergies: Allergies Penicillins Allergy (Verified 10/02/21 14:01) Review of Systems ROS: No change since H&P Vital Signs and I&O's Vital Signs: Temperature 98.4 F Pulse Rate 78 Respiratory Rate 34 Blood Pressure [Left Arm] 104/56 Blood Pressure 111/60 O2 Sat by Pulse Oximetry 100 Intake and Output: Intake & Output 10/05/21 10/06/21 10/07/21 10/08/21 11:59 11:59 11:59 11:59 Intake Total 2532 / 2532 3273 / 3273 1069 / 1069 1012 / 1012 Output Total 2400 / 2400 1775 / 1775 1300 / 1300 400 / 400 Balance 132 / 132 1498 / 1498 -231 / -231 612 / 612 Physical Exam Oriented: Normal Eyes: Normal Ear: Normal Nose: Normal Throat: Normal Respiratory: Normal Cardiovascular: Normal : Normal Auscultation: Bowel Sounds: Normal Tenderness: Epigastric (soft , flat abdomen with tenderness to deep pallation . no rebound .) Skin: Decreased Turgur Musculoskeletal: Left, Shoulder (Left shoulder blade pain. ) and Back:Thoracic (Painful to palpation over the T8 vertebrae. ) Psychiatric: Normal Mood Description: Calm Affect: Normal Speech Pattern: Clear Laboratory and Diagnostics Result Diagrams: 10/07/21 04:56 10/07/21 04:56 Labs: 10/02/21 15:33 Blood Blood Culture - Preliminary 10/02/21 15:27 Blood Blood Culture - Preliminary Laboratory WBC 10.1 X10^3/uL (3.6-10.0) H 10/07/21 04:56 RBC 2.74 X10^6/uL (4.7-6.0) L 10/07/21 04:56 Hgb 8.2 g/dL (13.5-18.0) L 10/07/21 04:56 Hct 24.7 % (42.0-54.0) L 10/07/21 04:56 MCV 90.3 fL (80.0-100.0) 10/07/21 04:56 MCH 30.0 pg (27.0-34.0) 10/07/21 04:56 MCHC 33.2 g/dL (33.0-35.0) 10/07/21 04:56 RDW 14.7 % (11.6-16.5) 10/07/21 04:56 Plt Count 234 X10^3/uL (150.0-450.0) 10/07/21 04:56 Plt Count Comment Adequate (ADEQUATE) 10/03/21 04:25 MPV 8.9 fL (7.4-11.0) 10/07/21 04:56 Neut % (Auto) 83.8 % (42.0-75.0) H 10/07/21 04:56 Lymph % (Auto) 7.1 % (21.0-51.0) L 10/07/21 04:56 [place] % (Auto) 6.4 % (0.0-13.0) 10/07/21 04:56 Eos % (Auto) 2.2 % (0.9-2.9) 10/07/21 04:56 Baso % (Auto) 0.5 % (0.2-1.0) 10/07/21 04:56 Neut # (Auto) 8.4 x10^3/uL (2.2-4.8) H 10/07/21 04:56 Lymph # (Auto) 0.7 X10^3/uL (1.3-2.9) L 10/07/21 04:56 [place] # (Auto) 0.6 x10^3/uL (0.3-0.8) 10/07/21 04:56 Eos # (Auto) 0.2 x10^3/uL (0.0-0.2) 10/07/21 04:56 Baso # (Auto) 0.1 X10^3/uL (0.0-0.1) 10/07/21 04:56 Absolute Nucleated RBC 0.0 /100WBC 10/07/21 04:56 Total Counted 100 10/02/21 14:15 Neutrophils % (Manual) 93 % (39-76) H 10/02/21 14:15 Lymphocytes % (Manual) 6 % (13-43) L 10/02/21 14:15 Monocytes % (Manual) 1 % (4-9) L 10/02/21 14:15 Plt Morphology Comment Normal (NORMAL) 10/03/21 04:25 RBC Morphology Normal (NORMAL) 10/03/21 04:25 PT 14.8 SECONDS (11.8-14.3) 10/03/21 04:25 INR Target Range - 10/03/21 04:25 INR 1.21 (0.8-1.3) 10/03/21 04:25 APTT 20.0 SECONDS (22.9-36.5) L 10/03/21 04:25 PTT Comment - 10/03/21 04:25 Sodium 144 mmol/L (136-145) 10/07/21 04:56 Corrected Sodium TNP 10/07/21 04:56 Potassium 3.8 mmol/L (3.5-5.1) 10/07/21 04:56 Chloride 107 mmol/L (98-107) 10/07/21 04:56 Carbon Dioxide 31.0 mmol/L (21-32) 10/07/21 04:56 BUN 17 mg/dL (7-18) 10/07/21 04:56 Creatinine 1.10 mg/dL (0.70-1.30) 10/07/21 04:56 Est GFR (MDRD) Af Amer > 60 (>60) 10/07/21 04:56 Est GFR (MDRD) Non-Af > 60 (>60) 10/07/21 04:56 Glucose 108 mg/dL (65-99) H 10/07/21 04:56 Lactic Acid 2.5 mmol/L (0.4-2.0) H 10/02/21 14:15 Calcium 7.7 mg/dL (8.5-10.1) L 10/07/21 04:56 Corrected Calcium 9.2 mg/dL (8.5-10.1) 10/07/21 04:56 Magnesium 1.6 mg/dL (1.7-2.9) L 10/07/21 04:56 Iron 14 ug/dL (50-175) L 10/04/21 04:46 Transferrin 154 mg/dL (202-364) L 10/04/21 04:46 Ferritin 245 ng/mL (26-388) 10/04/21 04:46 Total Bilirubin 0.30 mg/dL (0.2-1.0) 10/07/21 04:56 AST 30 Units/L (15-37) 10/07/21 04:56 ALT 21 Units/L (12-78) 10/07/21 04:56 Alkaline Phosphatase 137 Units/L (46-116) H 10/07/21 04:56 Creatine Kinase 1726 Units/L (39-308) H 10/04/21 04:40 CK-MB (CK-2) 7.6 ng/mL (0-4.0) H* 10/03/21 04:25 CK/CKMB % Calc 0.2 % (<4) 10/03/21 04:25 Troponin I High Sens 52.3 ng/L (4.0-60.0) 10/03/21 04:25 B-Natriuretic Peptide 470 pg/mL (0-79) H 10/06/21 04:40 Total Protein 5.5 g/dL (6.4-8.2) L 10/07/21 04:56 Albumin 2.1 g/dL (3.4-5.0) L 10/07/21 04:56 Globulin 3.4 g/dL (2.5-4.5) 10/07/21 04:56 Albumin/Globulin Ratio 0.6 Ratio (1.1-2.1) L 10/07/21 04:56 Vitamin B12 577 pg/mL (193-986) 10/04/21 04:46 Folate 6.6 ng/mL (>8.6) L 10/04/21 04:46 TSH 3rd Generation 0.859 uIU/mL (0.358-3.74) 10/02/21 14:15 Specimen Type Catherized urine 10/02/21 01:08 Urine Color Yellow (YELLOW) 10/02/21 01:08 Urine Appearance Clear (CLEAR) 10/02/21 01:08 Urine pH 5.0 (5.0 - 8.0) 10/02/21 01:08 Ur Specific [place] 1.020 (1.000-1.030) 10/02/21 01:08 Urine Protein 1+ (NEGATIVE) 10/02/21 01:08 Urine Glucose (UA) Negative (NEGATIVE) 10/02/21 01:08 Urine Ketones Negative (NEGATIVE) 10/02/21 01:08 Urine Occult Blood 1+ (NEGATIVE) 10/02/21 01:08 Urine Nitrite Negative (NEGATIVE) 10/02/21 01:08 Urine Bilirubin 1+ (NEGATIVE) 10/02/21 01:08 Urine Urobilinogen Normal (NORMAL) 10/02/21 01:08 Ur Leukocyte Esterase Negative (NEGATIVE) 10/02/21 01:08 Urine RBC None seen /HPF (0-3) 10/02/21 01:08 Urine WBC None seen /HPF (0-5) 10/02/21 01:08 Ur Squamous Epith Cells Rare /HPF (NEGATIVE) 10/02/21 01:08 Urine Bacteria Negative /HPF (NEGATIVE) 10/02/21 01:08 Ur Culture Indicated? No/not indicated 10/02/21 01:08 Stool Description Fob tube 10/04/21 19:50 Stl Occult Blood (IFOB) Negative (NEGATIVE) 10/04/21 19:50 Theophylline < 2.0 ug/mL (10-20) L 10/02/21 14:15 SARS-CoV-2 (PCR) Negative (NEGATIVE) 10/02/21 15:58 Influenza Type A (PCR) Negative (NEGATIVE) 10/02/21 15:58 Influenza Type B (PCR) Negative (NEGATIVE) 10/02/21 15:58 RSV (PCR) Negative (NEGATIVE) 10/02/21 15:58 Tissue Pathology To follow 10/03/21 13:10 Plan (1) HTN (hypertension): Status: Acute Qualifiers: Hypertension type: unspecified Qualified Code(s): I10 - Essential (primary) hypertension Narrative Support Text: Blood pressure stable, no changes. Plan: The patient is being started on Metoprolol ER 50 mg PO Q day. (2) Thoracic spine fracture: Status: Acute Qualifiers: Encounter type: initial encounter Fracture morphology: unspecified fracture morphology Fracture type: closed Thoracic vertebra fracture level: T8 Qualified Code(s): S22.069A - Unspecified fracture of T7-T8 vertebra, initial encounter for closed fracture Plan: pain control. (3) Closed left scapular fracture: Status: Acute Qualifiers: Encounter type: initial encounter Fracture alignment: nondisplaced Scapula location: body Qualified Code(s): S42.115A - Nondisplaced fracture of body of scapula, left shoulder, initial encounter for closed fracture Plan: Pain control. (4) Weakness generalized: Status: Acute (5) Fall: Status: Acute Qualifiers: Encounter type: initial encounter Qualified Code(s): W19.XXXA - Unspecified fall, initial encounter (6) Anemia: Status: Acute Qualifiers: Anemia type: iron deficiency Narrative Support Text: Hemoglobin is 8.2 this morning. Plan: The patient's iron panel from yesterday shows that he is iron deficiency anemia and also a low folate level. The patient is having a colonoscopy tomorrow to rule out a bleed. This morning start patient on ferrous gluconate 324 mg by mouth daily and folate 1 mcg by mouth daily. (7) Complaint of melena: Status: Acute Plan: we'll plan on consulting Dr. Rodriguez. Follow up with patient's hemoccult when available. (8) Rhabdomyolysis: Status: Acute Plan: I'll continue The patient's IV fluid at this time. I will check a CK level this morning and repeat it daily. (9) Acute dehydration: Status: Resolved Plan: Intravenous hydration . (10) Acute renal failure: Status: Resolved Qualifiers: Acute renal failure type: unspecified Qualified Code(s): N17.9 - Acute kidney failure, unspecified Plan: I will change his IV fluid to kvo this morning.
[2021-10-07] MEDS: ULTRAM PO PRN (20:15)
[2021-10-08] MEDS: NS 1,000 ML IV 1,000 ML IV SCH ×3 (01:03→16:50)
[2021-10-08 04:42] LABS: ALANINE AMINOTRANSFERASE 18 Units/L (12-78); ALBUMIN 1.8 g/dL (3.4-5.0); ALKALINE PHOSPHATASE 122 Units/L (46-116); ASPARTATE AMINO TRANSFERASE 24 Units/L (15-37); BLOOD UREA NITROGEN 16 mg/dL (7-18); CALCIUM 7.5 mg/dL (8.5-10.1); CARBON DIOXIDE 32.4 mmol/L (21-32); CHLORIDE 108 mmol/L (98-107); COR CA(FOR HYPOALB) 9.3 mg/dL (8.5-10.1); CREATININE 1.07 mg/dL (0.70-1.30); MAGNESIUM 1.7 mg/dL (1.7-2.9); SODIUM 142 mmol/L (136-145); eGFR NON BLACK RACES > 60 (>60)
[2021-10-08 04:54] LABS: BASOPHILS # (AUTO) 0.1 X10^3/uL (0.0-0.1); BASOPHILS % (AUTO) 1.4 % (0.2-1.0); EOSINOPHILS # (AUTO) 0.3 x10^3/uL (0.0-0.2); EOSINOPHILS % (AUTO) 3.5 % (0.9-2.9); HEMATOCRIT 22.3 % (42.0-54.0); HEMOGLOBIN 7.4 g/dL (13.5-18.0); LYMPHOCYTES # (AUTO) 0.9 X10^3/uL (1.3-2.9); LYMPHOCYTES % (AUTO) 10.6 % (21.0-51.0); MEAN CORPUSCULAR HGB CONC 33.3 g/dL (33.0-35.0); MEAN CORPUSCULAR VOLUME 90.2 fL (80.0-100.0); MEAN PLATELET VOLUME 9.2 fL (7.4-11.0); MONOCYTES # (AUTO) 0.5 x10^3/uL (0.3-0.8); MONOCYTES % (AUTO) 5.8 % (0.0-13.0); NEUTROPHILS # (AUTO) 6.4 x10^3/uL (2.2-4.8); NEUTROPHILS % (AUTO) 78.7 % (42.0-75.0); RED BLOOD COUNT 2.48 X10^6/uL (4.7-6.0); RED CELL DISTRIBUTION WIDTH 14.4 % (11.6-16.5); WHITE BLOOD COUNT 8.2 X10^3/uL (3.6-10.0)
[2021-10-08] MEDS ORDERED: ZESTRIL TAB 20 MG ONE (07:59)
[2021-10-08] MEDS: TOPROL XL PO SCH (08:45)
[2021-10-08] MEDS: ZESTRIL TAB 20 MG PO SCH (08:45)
[2021-10-08] MEDS: HEMOCYTE-PLUS PO SCH (08:45)
[2021-10-08] MEDS: PEPCID TAB 20 MG PO SCH (08:46)
[2021-10-08] MEDS: HYDROCHLOROTHIAZIDE 12.5 MG CAP PO SCH (08:46)
[2021-10-08] MEDS: PROTONIX INJ 40 MG VIAL IVP SCH ×2 (08:46→20:31)
--- NOTE | 2021-10-08 10:59 | RAD ---
HISTORYhypoxia htn, chf, dementiaSTUDYCHEST, 1 [id number]/2022FINDINGSCardiome santhosh. Diffuse interstitial thickening is present. No consolidation, sizable effusion, or visible pneumothorax. Scattered hazy opacities. No acute osseous finding.IMPRESSIONEvidence of CHF. Scattered hazy opacities could reflect superimposed infection.Electronically signed by: Bahman Galicia (Oct 08, 2021 10:58:50)
[2021-10-08] MEDS: ULTRAM PO PRN ×2 (13:33→20:31)
[2021-10-08] MEDS: LASIX PO PRN (13:34)
--- NOTE | 2021-10-08 14:36 | PCM.PROG ---
Progress Note Progress Note for Day of Date of Exam: 10/08/21 Subjective Subjective: The patient is awake this morning. He still seems confused about answering questions. No family members are present this morning. The patient became hypoxic yesterday last night in which I put him on nasal cannula 3 L of oxygen. A chest x-ray this morning showed increased interstitial markings consistent with congestive heart failure and his BNP was slightly elevated but down from th e previous few days before. I am going to Hep-Lock his IV today repeat BMP and chest x-ray tomorrow to make sure that he is not coming down with nosocomial pneumonia. I will discuss temporary physical rehabilitation as an inpatient with family tomorrow when they are available. It is also noted that his hemoglobin has dropped to 7.4 this morning. I will recheck a CBC on him in the morning as well. Past Medical Family Social History Past Med/Fam/Surg Hx: No changes since H&P Allergies: Allergies Penicillins Allergy (Verified 10/02/21 14:01) Review of Systems ROS: No change since H&P Vital Signs and I&O's Vital Signs: Temperature 98.5 F Pulse Rate 88 Respiratory Rate 20 Blood Pressure [Left Arm] 104/56 Blood Pressure 138/64 O2 Sat by Pulse Oximetry 98 Intake and Output: Intake & Output 10/06/21 10/07/21 10/08/21 10/09/21 11:59 11:59 11:59 11:59 Intake Total 3273 / 3273 1069 / 1069 1812 / 1812 Output Total 1775 / 1775 1300 / 1300 1000 / 1000 Balance 1498 / 1498 -231 / -231 812 / 812 Physical Exam Oriented: Normal Eyes: Normal Ear: Normal Nose: Normal Throat: Normal Respiratory: Normal Cardiovascular: Normal : Normal Auscultation: Bowel Sounds: Normal Tenderness: Epigastric (soft , flat abdomen with tenderness to deep pallation . no rebound .) Skin: Decreased Turgur Musculoskeletal: Left, Shoulder (Left shoulder blade pain. ) and Back:Thoracic (Painful to palpation over the T8 vertebrae. ) Psychiatric: Normal Mood Description: Calm Affect: Normal Speech Pattern: Clear Laboratory and Diagnostics Result Diagrams: 10/08/21 04:20 10/08/21 04:20 Labs: 10/02/21 15:33 Blood Blood Culture - Final 10/02/21 15:27 Blood Blood Culture - Final Laboratory WBC 8.2 X10^3/uL (3.6-10.0) 10/08/21 04:20 RBC 2.48 X10^6/uL (4.7-6.0) L 10/08/21 04:20 Hgb 7.4 g/dL (13.5-18.0) L 10/08/21 04:20 Hct 22.3 % (42.0-54.0) L 10/08/21 04:20 MCV 90.2 fL (80.0-100.0) 10/08/21 04:20 MCH 30.0 pg (27.0-34.0) 10/08/21 04:20 MCHC 33.3 g/dL (33.0-35.0) 10/08/21 04:20 RDW 14.4 % (11.6-16.5) 10/08/21 04:20 Plt Count 226 X10^3/uL (150.0-450.0) 10/08/21 04:20 Plt Count Comment Adequate (ADEQUATE) 10/03/21 04:25 MPV 9.2 fL (7.4-11.0) 10/08/21 04:20 Neut % (Auto) 78.7 % (42.0-75.0) H 10/08/21 04:20 Lymph % (Auto) 10.6 % (21.0-51.0) L 10/08/21 04:20 [place] % (Auto) 5.8 % (0.0-13.0) 10/08/21 04:20 Eos % (Auto) 3.5 % (0.9-2.9) H 10/08/21 04:20 Baso % (Auto) 1.4 % (0.2-1.0) H 10/08/21 04:20 Neut # (Auto) 6.4 x10^3/uL (2.2-4.8) H 10/08/21 04:20 Lymph # (Auto) 0.9 X10^3/uL (1.3-2.9) L 10/08/21 04:20 [place] # (Auto) 0.5 x10^3/uL (0.3-0.8) 10/08/21 04:20 Eos # (Auto) 0.3 x10^3/uL (0.0-0.2) H 10/08/21 04:20 Baso # (Auto) 0.1 X10^3/uL (0.0-0.1) 10/08/21 04:20 Absolute Nucleated RBC 0.0 /100WBC 10/08/21 04:20 Total Counted 100 10/02/21 14:15 Neutrophils % (Manual) 93 % (39-76) H 10/02/21 14:15 Lymphocytes % (Manual) 6 % (13-43) L 10/02/21 14:15 Monocytes % (Manual) 1 % (4-9) L 10/02/21 14:15 Plt Morphology Comment Normal (NORMAL) 10/03/21 04:25 RBC Morphology Normal (NORMAL) 10/03/21 04:25 PT 14.8 SECONDS (11.8-14.3) 10/03/21 04:25 INR Target Range - 10/03/21 04:25 INR 1.21 (0.8-1.3) 10/03/21 04:25 APTT 20.0 SECONDS (22.9-36.5) L 10/03/21 04:25 PTT Comment - 10/03/21 04:25 Sodium 142 mmol/L (136-145) 10/08/21 04:20 Corrected Sodium TNP 10/08/21 04:20 Potassium 3.7 mmol/L (3.5-5.1) 10/08/21 04:20 Chloride 108 mmol/L (98-107) H 10/08/21 04:20 Carbon Dioxide 32.4 mmol/L (21-32) H 10/08/21 04:20 BUN 16 mg/dL (7-18) 10/08/21 04:20 Creatinine 1.07 mg/dL (0.70-1.30) 10/08/21 04:20 Est GFR (MDRD) Af Amer > 60 (>60) 10/08/21 04:20 Est GFR (MDRD) Non-Af > 60 (>60) 10/08/21 04:20 Glucose 90 mg/dL (65-99) 10/08/21 04:20 Lactic Acid 2.5 mmol/L (0.4-2.0) H 10/02/21 14:15 Calcium 7.5 mg/dL (8.5-10.1) L 10/08/21 04:20 Corrected Calcium 9.3 mg/dL (8.5-10.1) 10/08/21 04:20 Magnesium 1.7 mg/dL (1.7-2.9) 10/08/21 04:20 Iron 14 ug/dL (50-175) L 10/04/21 04:46 Transferrin 154 mg/dL (202-364) L 10/04/21 04:46 Ferritin 245 ng/mL (26-388) 10/04/21 04:46 Total Bilirubin 0.30 mg/dL (0.2-1.0) 10/08/21 04:20 AST 24 Units/L (15-37) 10/08/21 04:20 ALT 18 Units/L (12-78) 10/08/21 04:20 Alkaline Phosphatase 122 Units/L (46-116) H 10/08/21 04:20 Creatine Kinase 1726 Units/L (39-308) H 10/04/21 04:40 CK-MB (CK-2) 7.6 ng/mL (0-4.0) H* 10/03/21 04:25 CK/CKMB % Calc 0.2 % (<4) 10/03/21 04:25 Troponin I High Sens 52.3 ng/L (4.0-60.0) 10/03/21 04:25 B-Natriuretic Peptide 142 pg/mL (0-79) H 10/08/21 04:20 Total Protein 5.0 g/dL (6.4-8.2) L 10/08/21 04:20 Albumin 1.8 g/dL (3.4-5.0) L 10/08/21 04:20 Globulin 3.2 g/dL (2.5-4.5) 10/08/21 04:20 Albumin/Globulin Ratio 0.6 Ratio (1.1-2.1) L 10/08/21 04:20 Vitamin B12 577 pg/mL (193-986) 10/04/21 04:46 Folate 6.6 ng/mL (>8.6) L 10/04/21 04:46 TSH 3rd Generation 0.859 uIU/mL (0.358-3.74) 10/02/21 14:15 Specimen Type Catherized urine 10/02/21 01:08 Urine Color Yellow (YELLOW) 10/02/21 01:08 Urine Appearance Clear (CLEAR) 10/02/21 01:08 Urine pH 5.0 (5.0 - 8.0) 10/02/21 01:08 Ur Specific [place] 1.020 (1.000-1.030) 10/02/21 01:08 Urine Protein 1+ (NEGATIVE) 10/02/21 01:08 Urine Glucose (UA) Negative (NEGATIVE) 10/02/21 01:08 Urine Ketones Negative (NEGATIVE) 10/02/21 01:08 Urine Occult Blood 1+ (NEGATIVE) 10/02/21 01:08 Urine Nitrite Negative (NEGATIVE) 10/02/21 01:08 Urine Bilirubin 1+ (NEGATIVE) 10/02/21 01:08 Urine Urobilinogen Normal (NORMAL) 10/02/21 01:08 Ur Leukocyte Esterase Negative (NEGATIVE) 10/02/21 01:08 Urine RBC None seen /HPF (0-3) 10/02/21 01:08 Urine WBC None seen /HPF (0-5) 10/02/21 01:08 Ur Squamous Epith Cells Rare /HPF (NEGATIVE) 10/02/21 01:08 Urine Bacteria Negative /HPF (NEGATIVE) 10/02/21 01:08 Ur Culture Indicated? No/not indicated 10/02/21 01:08 Stool Description Fob tube 10/04/21 19:50 Stl Occult Blood (IFOB) Negative (NEGATIVE) 10/04/21 19:50 Theophylline < 2.0 ug/mL (10-20) L 10/02/21 14:15 SARS-CoV-2 (PCR) Negative (NEGATIVE) 10/02/21 15:58 Influenza Type A (PCR) Negative (NEGATIVE) 10/02/21 15:58 Influenza Type B (PCR) Negative (NEGATIVE) 10/02/21 15:58 RSV (PCR) Negative (NEGATIVE) 10/02/21 15:58 Tissue Pathology To follow 10/03/21 13:10 Radiology Reviewed: Yes Plan (1) HTN (hypertension): Status: Acute Qualifiers: Hypertension type: unspecified Qualified Code(s): I10 - Essential (primary) hypertension Plan: The patient is being started on Metoprolol ER 50 mg PO Q day. (2) Thoracic spine fracture: Status: Acute Qualifiers: Encounter type: initial encounter Fracture morphology: unspecified fracture morphology Fracture type: closed Thoracic vertebra fracture level: T8 Qualified Code(s): S22.069A - Unspecified fracture of T7-T8 vertebra, initial encounter for closed fracture Plan: pain control. (3) Closed left scapular fracture: Status: Acute Qualifiers: Encounter type: initial encounter Fracture alignment: nondisplaced Scapula location: body Qualified Code(s): S42.115A - Nondisplaced fracture of body of scapula, left shoulder, initial encounter for closed fracture Plan: Pain control. (4) Weakness generalized: Status: Acute (5) Fall: Status: Acute Qualifiers: Encounter type: initial encounter Qualified Code(s): W19.XXXA - Unspecified fall, initial encounter (6) Anemia: Status: Acute Qualifiers: Anemia type: iron deficiency Plan: The patient's iron panel from yesterday shows that he is iron deficiency anemia and also a low folate level. The patient is having a colonoscopy tomorrow to rule out a bleed. This morning start patient on ferrous gluconate 324 mg by mouth daily and folate 1 mcg by mouth daily. (7) Complaint of melena: Status: Acute Plan: we'll plan on consulting Dr. Rodriguez. Follow up with patient's hemoccult when available. (8) Rhabdomyolysis: Status: Acute Plan: I'll continue The patient's IV fluid at this time. I will check a CK level this morning and repeat it daily. (9) Acute dehydration: Status: Resolved Plan: Intravenous hydration . (10) Acute renal failure: Status: Resolved Qualifiers: Acute renal failure type: unspecified Qualified Code(s): N17.9 - Acute kidney failure, unspecified Plan: I will change his IV fluid to kvo this morning.
[2021-10-08] MEDS: VALIUM INJ IVP PRN (15:08)
[2021-10-08] MEDS: THORAZINE INJ 25 MG AMP IVP PRN ×2 (20:31)
[2021-10-09] MEDS: NS 1,000 ML IV 1,000 ML IV SCH ×2 (00:09→18:40)
[2021-10-09 04:45] LABS: BASOPHILS # (AUTO) 0.1 X10^3/uL (0.0-0.1); BASOPHILS % (AUTO) 0.6 % (0.2-1.0); EOSINOPHILS # (AUTO) 0.3 x10^3/uL (0.0-0.2); EOSINOPHILS % (AUTO) 3.2 % (0.9-2.9); HEMATOCRIT 24.3 % (42.0-54.0); HEMOGLOBIN 8.3 g/dL (13.5-18.0); LYMPHOCYTES # (AUTO) 0.9 X10^3/uL (1.3-2.9); LYMPHOCYTES % (AUTO) 10.7 % (21.0-51.0); MEAN CORPUSCULAR HEMOGLOBIN 30.3 pg (27.0-34.0); MEAN CORPUSCULAR VOLUME 89.2 fL (80.0-100.0); MEAN PLATELET VOLUME 8.8 fL (7.4-11.0); MONOCYTES # (AUTO) 0.4 x10^3/uL (0.3-0.8); MONOCYTES % (AUTO) 4.9 % (0.0-13.0); NEUTROPHILS # (AUTO) 6.5 x10^3/uL (2.2-4.8); NEUTROPHILS % (AUTO) 80.6 % (42.0-75.0); RED BLOOD COUNT 2.72 X10^6/uL (4.7-6.0); RED CELL DISTRIBUTION WIDTH 14.6 % (11.6-16.5); WHITE BLOOD COUNT 8.1 X10^3/uL (3.6-10.0)
[2021-10-09 04:54] LABS: ALANINE AMINOTRANSFERASE 19 Units/L (12-78); ALBUMIN 1.8 g/dL (3.4-5.0); ALKALINE PHOSPHATASE 134 Units/L (46-116); ASPARTATE AMINO TRANSFERASE 24 Units/L (15-37); BLOOD UREA NITROGEN 19 mg/dL (7-18); CALCIUM 7.8 mg/dL (8.5-10.1); CARBON DIOXIDE 33.2 mmol/L (21-32); CHLORIDE 101 mmol/L (98-107); COR CA(FOR HYPOALB) 9.6 mg/dL (8.5-10.1); CREATININE 1.19 mg/dL (0.70-1.30); SODIUM 139 mmol/L (136-145); TOTAL PROTEIN 5.4 g/dL (6.4-8.2); eGFR NON BLACK RACES > 60 (>60)
--- NOTE | 2021-10-09 05:40 | RAD ---
PROCEDURE: Chest X-ray 1 View .HISTORY: HYPOXIA .TECHNIQUE: AP view .COMPARISON: 10/08/2021.TECHNICAL QUALITY: Satisfactory .FINDINGS:Heart size upper limits of normal and unchanged.Normal central vascularity.Increased interstitial markings both lung abraham is unchanged consistent with fibrosis. No alveolar consolidation, pleural fluid, or masses.IMPRESSION:1. Interstitial fibrosis.2. Unchanged start size upper limits of normal.3. No other acute change identified.Electronically signed by: Girma Zambrano (Oct 09, 2021 05:39:04)
[2021-10-09] MEDS ORDERED: ZESTRIL TAB 20 MG ONE (09:18)
[2021-10-09] MEDS: HEMOCYTE-PLUS PO SCH (09:19)
[2021-10-09] MEDS: PROTONIX INJ 40 MG VIAL IVP SCH ×2 (09:20→20:14)
[2021-10-09] MEDS: HYDROCHLOROTHIAZIDE 12.5 MG CAP PO SCH (09:20)
[2021-10-09] MEDS: ZESTRIL TAB 20 MG PO SCH (09:20)
[2021-10-09] MEDS: PEPCID TAB 20 MG PO SCH (09:20)
[2021-10-09] MEDS: TOPROL XL PO SCH (09:20)
[2021-10-09] MEDS ORDERED: POTASSIUM CHL 60 MEQ/NS 0.45% 500 ML IV PRN (11:26)
[2021-10-09] MEDS ORDERED: POTASSIUM CHL 40 MEQ/NS 0.45% 500 ML IV PRN (11:26)
[2021-10-09] MEDS ORDERED: K-RIDER 10 MEQ/NS 100 ML 10 MEQ/100 ML BAG IV PRN (11:26)
[2021-10-09] MEDS ORDERED: KLOR-CON PO PRN (11:26)
[2021-10-09] MEDS ORDERED: POTASSIUM CHLORIDE LIQ 20 MEQ UDC PO PRN (11:26)
[2021-10-09] MEDS ORDERED: MICRO K EXTEN CAP 10 MEQ PO PRN (11:26)
--- NOTE | 2021-10-09 15:54 | PCM.PROG ---
Progress Note Progress Note for Day of Date of Exam: 10/09/21 Subjective Subjective: The patient is awake this morning. He is still confused this morning. I spoke with his family member this morning she is also in agreement that he needs inpatient physical therapy rehab for time being. [employer] are working on finding a local long-term for placement for placement later this week. [place] of 3.4. Hemoglobin is back up at 8.3. Creatinine remained stable at 1.19. O2 sat on 3 L nasal cannula is in the upper 90s. Today we will have physical therapy tried to stand him up and possibly walk with him. I will Hep-Lock his IV. We will try to wean down his O2 today as well. Past Medical Family Social History Past Med/Fam/Surg Hx: No changes since H&P Allergies: Allergies Penicillins Allergy (Verified 10/02/21 14:01) Review of Systems ROS: No change since H&P Vital Signs and I&O's Vital Signs: Temperature 98.1 F Pulse Rate 104 Respiratory Rate 22 Blood Pressure [Left Arm] 104/56 Blood Pressure 157/72 O2 Sat by Pulse Oximetry 89 Intake and Output: Intake & Output 10/07/21 10/08/21 10/09/21 10/10/21 11:59 11:59 11:59 11:59 Intake Total 1069 / 1069 1812 / 1812 2010 Output Total 1300 / 1300 1000 / 1000 1100 / 1100 Balance -231 / -231 812 / 812 911 / 911 Physical Exam Oriented: Normal Eyes: Normal Ear: Normal Nose: Normal Throat: Normal Respiratory: Normal Cardiovascular: Normal : Normal Auscultation: Bowel Sounds: Normal Tenderness: Epigastric (soft , flat abdomen with tenderness to deep pallation . no rebound .) Skin: Decreased Turgur Musculoskeletal: Left, Shoulder (Left shoulder blade pain. ) and Back:Thoracic (Painful to palpation over the T8 vertebrae. ) Psychiatric: Normal Mood Description: Calm Affect: Normal Speech Pattern: Clear Laboratory and Diagnostics Result Diagrams: 10/09/21 04:28 10/09/21 04:28 Labs: 10/02/21 15:33 Blood Blood Culture - Final 10/02/21 15:27 Blood Blood Culture - Final Laboratory WBC 8.1 X10^3/uL (3.6-10.0) 10/09/21 04:28 RBC 2.72 X10^6/uL (4.7-6.0) L 10/09/21 04:28 Hgb 8.3 g/dL (13.5-18.0) L 10/09/21 04:28 Hct 24.3 % (42.0-54.0) L 10/09/21 04:28 MCV 89.2 fL (80.0-100.0) 10/09/21 04:28 MCH 30.3 pg (27.0-34.0) 10/09/21 04:28 MCHC 34.0 g/dL (33.0-35.0) 10/09/21 04:28 RDW 14.6 % (11.6-16.5) 10/09/21 04:28 Plt Count 221 X10^3/uL (150.0-450.0) 10/09/21 04:28 Plt Count Comment Adequate (ADEQUATE) 10/03/21 04:25 MPV 8.8 fL (7.4-11.0) 10/09/21 04:28 Neut % (Auto) 80.6 % (42.0-75.0) H 10/09/21 04:28 Lymph % (Auto) 10.7 % (21.0-51.0) L 10/09/21 04:28 [place] % (Auto) 4.9 % (0.0-13.0) 10/09/21 04:28 Eos % (Auto) 3.2 % (0.9-2.9) H 10/09/21 04:28 Baso % (Auto) 0.6 % (0.2-1.0) 10/09/21 04:28 Neut # (Auto) 6.5 x10^3/uL (2.2-4.8) H 10/09/21 04:28 Lymph # (Auto) 0.9 X10^3/uL (1.3-2.9) L 10/09/21 04:28 [place] # (Auto) 0.4 x10^3/uL (0.3-0.8) 10/09/21 04:28 Eos # (Auto) 0.3 x10^3/uL (0.0-0.2) H 10/09/21 04:28 Baso # (Auto) 0.1 X10^3/uL (0.0-0.1) 10/09/21 04:28 Absolute Nucleated RBC 0.0 /100WBC 10/09/21 04:28 Total Counted 100 10/02/21 14:15 Neutrophils % (Manual) 93 % (39-76) H 10/02/21 14:15 Lymphocytes % (Manual) 6 % (13-43) L 10/02/21 14:15 Monocytes % (Manual) 1 % (4-9) L 10/02/21 14:15 Plt Morphology Comment Normal (NORMAL) 10/03/21 04:25 RBC Morphology Normal (NORMAL) 10/03/21 04:25 PT 14.8 SECONDS (11.8-14.3) 10/03/21 04:25 INR Target Range - 10/03/21 04:25 INR 1.21 (0.8-1.3) 10/03/21 04:25 APTT 20.0 SECONDS (22.9-36.5) L 10/03/21 04:25 PTT Comment - 10/03/21 04:25 Sodium 139 mmol/L (136-145) 10/09/21 04:28 Corrected Sodium TNP 10/09/21 04:28 Potassium 3.4 mmol/L (3.5-5.1) L 10/09/21 04:28 Chloride 101 mmol/L (98-107) 10/09/21 04:28 Carbon Dioxide 33.2 mmol/L (21-32) H 10/09/21 04:28 BUN 19 mg/dL (7-18) H 10/09/21 04:28 Creatinine 1.19 mg/dL (0.70-1.30) 10/09/21 04:28 Est GFR (MDRD) Af Amer > 60 (>60) 10/09/21 04:28 Est GFR (MDRD) Non-Af > 60 (>60) 10/09/21 04:28 Glucose 102 mg/dL (65-99) H 10/09/21 04:28 Lactic Acid 2.5 mmol/L (0.4-2.0) H 10/02/21 14:15 Calcium 7.8 mg/dL (8.5-10.1) L 10/09/21 04:28 Corrected Calcium 9.6 mg/dL (8.5-10.1) 10/09/21 04:28 Magnesium 1.3 mg/dL (1.7-2.9) L 10/09/21 04:28 Iron 14 ug/dL (50-175) L 10/04/21 04:46 Transferrin 154 mg/dL (202-364) L 10/04/21 04:46 Ferritin 245 ng/mL (26-388) 10/04/21 04:46 Total Bilirubin 0.30 mg/dL (0.2-1.0) 10/09/21 04:28 AST 24 Units/L (15-37) 10/09/21 04:28 ALT 19 Units/L (12-78) 10/09/21 04:28 Alkaline Phosphatase 134 Units/L (46-116) H 10/09/21 04:28 Creatine Kinase 1726 Units/L (39-308) H 10/04/21 04:40 CK-MB (CK-2) 7.6 ng/mL (0-4.0) H* 10/03/21 04:25 CK/CKMB % Calc 0.2 % (<4) 10/03/21 04:25 Troponin I High Sens 52.3 ng/L (4.0-60.0) 10/03/21 04:25 B-Natriuretic Peptide 153 pg/mL (0-79) H 10/09/21 04:28 Total Protein 5.4 g/dL (6.4-8.2) L 10/09/21 04:28 Albumin 1.8 g/dL (3.4-5.0) L 10/09/21 04:28 Globulin 3.6 g/dL (2.5-4.5) 10/09/21 04:28 Albumin/Globulin Ratio 0.5 Ratio (1.1-2.1) L 10/09/21 04:28 Vitamin B12 577 pg/mL (193-986) 10/04/21 04:46 Folate 6.6 ng/mL (>8.6) L 10/04/21 04:46 TSH 3rd Generation 0.859 uIU/mL (0.358-3.74) 10/02/21 14:15 Specimen Type Catherized urine 10/02/21 01:08 Urine Color Yellow (YELLOW) 10/02/21 01:08 Urine Appearance Clear (CLEAR) 10/02/21 01:08 Urine pH 5.0 (5.0 - 8.0) 10/02/21 01:08 Ur Specific [place] 1.020 (1.000-1.030) 10/02/21 01:08 Urine Protein 1+ (NEGATIVE) 10/02/21 01:08 Urine Glucose (UA) Negative (NEGATIVE) 10/02/21 01:08 Urine Ketones Negative (NEGATIVE) 10/02/21 01:08 Urine Occult Blood 1+ (NEGATIVE) 10/02/21 01:08 Urine Nitrite Negative (NEGATIVE) 10/02/21 01:08 Urine Bilirubin 1+ (NEGATIVE) 10/02/21 01:08 Urine Urobilinogen Normal (NORMAL) 10/02/21 01:08 Ur Leukocyte Esterase Negative (NEGATIVE) 10/02/21 01:08 Urine RBC None seen /HPF (0-3) 10/02/21 01:08 Urine WBC None seen /HPF (0-5) 10/02/21 01:08 Ur Squamous Epith Cells Rare /HPF (NEGATIVE) 10/02/21 01:08 Urine Bacteria Negative /HPF (NEGATIVE) 10/02/21 01:08 Ur Culture Indicated? No/not indicated 10/02/21 01:08 Stool Description Fob tube 10/04/21 19:50 Stl Occult Blood (IFOB) Negative (NEGATIVE) 10/04/21 19:50 Theophylline < 2.0 ug/mL (10-20) L 10/02/21 14:15 SARS-CoV-2 (PCR) Negative (NEGATIVE) 10/02/21 15:58 Influenza Type A (PCR) Negative (NEGATIVE) 10/02/21 15:58 Influenza Type B (PCR) Negative (NEGATIVE) 10/02/21 15:58 RSV (PCR) Negative (NEGATIVE) 10/02/21 15:58 Tissue Pathology To follow 10/03/21 13:10 Plan (1) HTN (hypertension): Status: Acute Qualifiers: Hypertension type: unspecified Qualified Code(s): I10 - Essential (primary) hypertension Plan: The patient is on Metoprolol ER 50 mg PO Q day. I will increase his metoprolol ER to 100 mg by mouth daily for better blood pressure control. I am also going to start him on jet nebs to see if this helps improve his O2 sat. (2) Thoracic spine fracture: Status: Acute Qualifiers: Encounter type: initial encounter Fracture morphology: unspecified fr acture morphology Fracture type: closed Thoracic vertebra fracture level: T8 Qualified Code(s): S22.069A - Unspecified fracture of T7-T8 vertebra, initial encounter for closed fracture Plan: pain control. (3) Closed left scapular fracture: Status: Acute Qualifiers: Encounter type: initial encounter Fracture alignment: nondisplaced Scapula location: body Qualified Code(s): S42.115A - Nondisplaced fracture of body of scapula, left shoulder, initial encounter for closed fracture Plan: Pain control. (4) Weakness generalized: Status: Acute Plan: Physical Therapy consultation, will follow up with their recommendations. (5) Fall: Status: Acute Qualifiers: Encounter type: initial encounter Qualified Code(s): W19.XXXA - Unspecified fall, initial encounter (6) Anemia: Status: Acute Qualifiers: Anemia type: iron deficiency Plan: The patient's iron panel from yesterday shows that he is iron deficiency anemia and also a low folate level. The patient is having a colonoscopy tomorrow to rule out a bleed. This morning start patient on ferrous gluconate 324 mg by mouth daily and folate 1 mcg by mouth daily. (7) Complaint of melena: Status: Acute Plan: we'll plan on consulting Dr. Rodriguez. Follow up with patient's hemoccult when available. (8) Rhabdomyolysis: Status: Acute Plan: I'll continue The patient's IV fluid at this time. I will check a CK level this morning and repeat it daily. (9) Acute dehydration: Status: Resolved Plan: Intravenous hydration . (10) Acute renal failure: Status: Resolved Qualifiers: Acute renal failure type: unspecified Qualified Code(s): N17.9 - Acute kidney failure, unspecified Plan: I will change his IV fluid to kvo this morning.
[2021-10-09] MEDS ORDERED: LASIX IVP ONE (15:55)
[2021-10-09] MEDS: MAGNESIUM SULFATE 1 GRAM/100 mL PREMIX 1 G/100 ML BAG IV PRN ×4 (19:48→22:56)
[2021-10-09] MEDS: K-DUR TAB 20 MEQ PO PRN (20:13)
[2021-10-09] MEDS: THORAZINE INJ 25 MG AMP IVP PRN (20:58)
[2021-10-10 05:12] LABS: BASOPHILS # (AUTO) 0.1 X10^3/uL (0.0-0.1); BASOPHILS % (AUTO) 1.2 % (0.2-1.0); EOSINOPHILS # (AUTO) 0.2 x10^3/uL (0.0-0.2); EOSINOPHILS % (AUTO) 1.8 % (0.9-2.9); HEMATOCRIT 24.8 % (42.0-54.0); HEMOGLOBIN 8.3 g/dL (13.5-18.0); LYMPHOCYTES # (AUTO) 0.6 X10^3/uL (1.3-2.9); LYMPHOCYTES % (AUTO) 6.9 % (21.0-51.0); MEAN CORPUSCULAR HEMOGLOBIN 29.7 pg (27.0-34.0); MEAN CORPUSCULAR HGB CONC 33.5 g/dL (33.0-35.0); MEAN CORPUSCULAR VOLUME 88.5 fL (80.0-100.0); MONOCYTES # (AUTO) 0.5 x10^3/uL (0.3-0.8); MONOCYTES % (AUTO) 5.4 % (0.0-13.0); NEUTROPHILS # (AUTO) 7.8 x10^3/uL (2.2-4.8); NEUTROPHILS % (AUTO) 84.7 % (42.0-75.0); RED BLOOD COUNT 2.81 X10^6/uL (4.7-6.0); RED CELL DISTRIBUTION WIDTH 14.4 % (11.6-16.5); WHITE BLOOD COUNT 9.2 X10^3/uL (3.6-10.0)
[2021-10-10 05:29] LABS: MAGNESIUM 1.9 mg/dL (1.7-2.9)
[2021-10-10] MEDS ORDERED: ZESTRIL TAB 20 MG ONE (08:20)
[2021-10-10] MEDS: K-DUR TAB 20 MEQ PO PRN (08:22)
[2021-10-10] MEDS: HEMOCYTE-PLUS PO SCH (08:23)
[2021-10-10] MEDS: PEPCID TAB 20 MG PO SCH (08:23)
[2021-10-10] MEDS: THORAZINE INJ 25 MG AMP IVP PRN (08:23)
[2021-10-10] MEDS: HYDROCHLOROTHIAZIDE 12.5 MG CAP PO SCH (08:23)
[2021-10-10] MEDS: ZESTRIL TAB 20 MG PO SCH (08:24)
[2021-10-10] MEDS: PROTONIX INJ 40 MG VIAL IVP SCH ×2 (08:24→22:20)
[2021-10-10] MEDS: TOPROL XL PO SCH (08:24)
[2021-10-10] MEDS: ZOFRAN INJ 4 MG VIAL IVP PRN (10:00)
[2021-10-10] MEDS ORDERED: SOLU-Medrol 125 MG VIAL IVP ONE (11:54)
[2021-10-10] MEDS: LEVAQUIN PREMIX IV 500 MG 500 MG/100 ML BAG IV SCH (12:29)
--- NOTE | 2021-10-10 14:29 | PCM.PROG ---
Progress Note Progress Note for Day of Date of Exam: 10/10/21 Subjective Subjective: The patient is awake this morning. The patient is less confused this am. Case management has found a NH that will take patient. He is still mildly hypoxic with O2 sats in the mid 90's on 2L [place]. Plan on discharge in 1-3 days. 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 Past Medical Family Social History Past Med/Fam/Surg Hx: No changes since H&P Allergies: Allergies Penicillins Allergy (Verified 10/02/21 14:01) Review of Systems ROS: No change since H&P Vital Signs and I&O's Vital Signs: Temperature 98.1 F Pulse Rate 81 Respiratory Rate 23 Blood Pressure [Left Arm] 104/56 Blood Pressure 127/78 O2 Sat by Pulse Oximetry 96 Intake and Output: Intake & Output 10/08/21 10/09/21 10/10/21 10/11/21 11:59 11:59 11:59 11:59 Intake Total 1812 / 1812 2010 2547 / 2547 Output Total 1000 / 1000 1100 / 1100 2925 / 2925 Balance 812 / 812 911 / 911 -378 / -378 Physical Exam Oriented: Normal Eyes: Normal Ear: Normal Nose: Normal Throat: Normal Respiratory: Wheezes and Rhonchi Cardiovascular: Normal : Normal Auscultation: Bowel Sounds: Normal Tenderness: Epigastric (soft , flat abdomen with tenderness to deep pallation . no rebound .) Skin: Decreased Turgur Musculoskeletal: Left, Shoulder (Left shoulder blade pain. ) and Back:Thoracic (Painful to palpation over the T8 vertebrae. ) Psychiatric: Normal Mood Description: Calm Affect: Normal Speech Pattern: Clear Laboratory and Diagnostics Result Diagrams: 10/10/21 04:55 10/10/21 04:55 Labs: 10/02/21 15:33 Blood Blood Culture - Final 10/02/21 15:27 Blood Blood Culture - Final Laboratory WBC 9.2 X10^3/uL (3.6-10.0) 10/10/21 04:55 RBC 2.81 X10^6/uL (4.7-6.0) L 10/10/21 04:55 Hgb 8.3 g/dL (13.5-18.0) L 10/10/21 04:55 Hct 24.8 % (42.0-54.0) L 10/10/21 04:55 MCV 88.5 fL (80.0-100.0) 10/10/21 04:55 MCH 29.7 pg (27.0-34.0) 10/10/21 04:55 MCHC 33.5 g/dL (33.0-35.0) 10/10/21 04:55 RDW 14.4 % (11.6-16.5) 10/10/21 04:55 Plt Count 266 X10^3/uL (150.0-450.0) 10/10/21 04:55 Plt Count Comment Adequate (ADEQUATE) 10/03/21 04:25 MPV 9.0 fL (7.4-11.0) 10/10/21 04:55 Neut % (Auto) 84.7 % (42.0-75.0) H 10/10/21 04:55 Lymph % (Auto) 6.9 % (21.0-51.0) L 10/10/21 04:55 [place] % (Auto) 5.4 % (0.0-13.0) 10/10/21 04:55 Eos % (Auto) 1.8 % (0.9-2.9) 10/10/21 04:55 Baso % (Auto) 1.2 % (0.2-1.0) H 10/10/21 04:55 Neut # (Auto) 7.8 x10^3/uL (2.2-4.8) H 10/10/21 04:55 Lymph # (Auto) 0.6 X10^3/uL (1.3-2.9) L 10/10/21 04:55 [place] # (Auto) 0.5 x10^3/uL (0.3-0.8) 10/10/21 04:55 Eos # (Auto) 0.2 x10^3/uL (0.0-0.2) 10/10/21 04:55 Baso # (Auto) 0.1 X10^3/uL (0.0-0.1) 10/10/21 04:55 Absolute Nucleated RBC 0.0 /100WBC 10/10/21 04:55 Total Counted 100 10/02/21 14:15 Neutrophils % (Manual) 93 % (39-76) H 10/02/21 14:15 Lymphocytes % (Manual) 6 % (13-43) L 10/02/21 14:15 Monocytes % (Manual) 1 % (4-9) L 10/02/21 14:15 Plt Morphology Comment Normal (NORMAL) 10/03/21 04:25 RBC Morphology Normal (NORMAL) 10/03/21 04:25 PT 14.8 SECONDS (11.8-14.3) 10/03/21 04:25 INR Target Range - 10/03/21 04:25 INR 1.21 (0.8-1.3) 10/03/21 04:25 APTT 20.0 SECONDS (22.9-36.5) L 10/03/21 04:25 PTT Comment - 10/03/21 04:25 Sodium 139 mmol/L (136-145) 10/09/21 04:28 Corrected Sodium TNP 10/09/21 04:28 Potassium 3.5 mmol/L (3.5-5.1) 10/10/21 04:55 Chloride 101 mmol/L (98-107) 10/09/21 04:28 Carbon Dioxide 33.2 mmol/L (21-32) H 10/09/21 04:28 BUN 19 mg/dL (7-18) H 10/09/21 04:28 Creatinine 1.19 mg/dL (0.70-1.30) 10/09/21 04:28 Est GFR (MDRD) Af Amer > 60 (>60) 10/09/21 04:28 Est GFR (MDRD) Non-Af > 60 (>60) 10/09/21 04:28 Glucose 102 mg/dL (65-99) H 10/09/21 04:28 Lactic Acid 2.5 mmol/L (0.4-2.0) H 10/02/21 14:15 Calcium 7.8 mg/dL (8.5-10.1) L 10/09/21 04:28 Corrected Calcium 9.6 mg/dL (8.5-10.1) 10/09/21 04:28 Magnesium 1.9 mg/dL (1.7-2.9) 10/10/21 04:55 Iron 14 ug/dL (50-175) L 10/04/21 04:46 Transferrin 154 mg/dL (202-364) L 10/04/21 04:46 Ferritin 245 ng/mL (26-388) 10/04/21 04:46 Total Bilirubin 0.30 mg/dL (0.2-1.0) 10/09/21 04:28 AST 24 Units/L (15-37) 10/09/21 04:28 ALT 19 Units/L (12-78) 10/09/21 04:28 Alkaline Phosphatase 134 Units/L (46-116) H 10/09/21 04:28 Creatine Kinase 54 Units/L (39-308) 10/10/21 04:55 CK-MB (CK-2) 7.6 ng/mL (0-4.0) H* 10/03/21 04:25 CK/CKMB % Calc 0.2 % (<4) 10/03/21 04:25 Troponin I High Sens 52.3 ng/L (4.0-60.0) 10/03/21 04:25 B-Natriuretic Peptide 115 pg/mL (0-79) H 10/10/21 04:55 Total Protein 5.4 g/dL (6.4-8.2) L 10/09/21 04:28 Albumin 1.8 g/dL (3.4-5.0) L 10/09/21 04:28 Globulin 3.6 g/dL (2.5-4.5) 10/09/21 04:28 Albumin/Globulin Ratio 0.5 Ratio (1.1-2.1) L 10/09/21 04:28 Vitamin B12 577 pg/mL (193-986) 10/04/21 04:46 Folate 6.6 ng/mL (>8.6) L 10/04/21 04:46 TSH 3rd Generation 0.859 uIU/mL (0.358-3.74) 10/02/21 14:15 Specimen Type Catherized urine 10/02/21 01:08 Urine Color Yellow (YELLOW) 10/02/21 01:08 Urine Appearance Clear (CLEAR) 10/02/21 01:08 Urine pH 5.0 (5.0 - 8.0) 10/02/21 01:08 Ur Specific [place] 1.020 (1.000-1.030) 10/02/21 01:08 Urine Protein 1+ (NEGATIVE) 10/02/21 01:08 Urine Glucose (UA) Negative (NEGATIVE) 10/02/21 01:08 Urine Ketones Negative (NEGATIVE) 10/02/21 01:08 Urine Occult Blood 1+ (NEGATIVE) 10/02/21 01:08 Urine Nitrite Negative (NEGATIVE) 10/02/21 01:08 Urine Bilirubin 1+ (NEGATIVE) 10/02/21 01:08 Urine Urobilinogen Normal (NORMAL) 10/02/21 01:08 Ur Leukocyte Esterase Negative (NEGATIVE) 10/02/21 01:08 Urine RBC None seen /HPF (0-3) 10/02/21 01:08 Urine WBC None seen /HPF (0-5) 10/02/21 01:08 Ur Squamous Epith Cells Rare /HPF (NEGATIVE) 10/02/21 01:08 Urine Bacteria Negative /HPF (NEGATIVE) 10/02/21 01:08 Ur Culture Indicated? No/not indicated 10/02/21 01:08 Stool Description Fob tube 10/04/21 19:50 Stl Occult Blood (IFOB) Negative (NEGATIVE) 10/04/21 19:50 Theophylline < 2.0 ug/mL (10-20) L 10/02/21 14:15 SARS-CoV-2 (PCR) Negative (NEGATIVE) 10/02/21 15:58 Influenza Type A (PCR) Negative (NEGATIVE) 10/02/21 15:58 Influenza Type B (PCR) Negative (NEGATIVE) 10/02/21 15:58 RSV (PCR) Negative (NEGATIVE) 10/02/21 15:58 Tissue Pathology To follow 10/03/21 13:10 Plan (1) HTN (hypertension): Status: Acute Qualifiers: Hypertension type: unspecified Qualified Code(s): I10 - Essential (prim janes) hypertension Plan: The patient is on Metoprolol ER 50 mg PO Q day. I will increase his metoprolol ER to 100 mg by mouth daily for better blood pressure control. I am also going to start him on jet nebs to see if this helps improve his O2 sat. (2) Thoracic spine fracture: Status: Acute Qualifiers: Encounter type: initial encounter Fracture morphology: unspecified fracture morphology Fracture type: closed Thoracic vertebra fracture level: T8 Qualified Code(s): S22.069A - Unspecified fracture of T7-T8 vertebra, initial encounter for closed fracture Plan: pain control. (3) Closed left scapular fracture: Status: Acute Qualifiers: Encounter type: initial encounter Fracture alignment: nondisplaced Scapula location: body Qualified Code(s): S42.115A - Nondisplaced fracture of body of scapula, left shoulder, initial encounter for closed fracture Plan: Pain control. (4) Weakness generalized: Status: Acute Plan: Physical Therapy consultation, will follow up with their recommendations. (5) Fall: Status: Acute Qualifiers: Encounter type: initial encounter Qualified Code(s): W19.XXXA - Unspecified fall, initial encounter (6) Anemia: Status: Acute Qualifiers: Anemia type: iron deficiency Plan: The patient's iron panel from yesterday shows that he is iron deficiency anemia and also a low folate level. The patient is having a colonoscopy tomorrow to rule out a bleed. This morning start patient on ferrous gluconate 324 mg by mouth daily and folate 1 mcg by mouth daily. (7) Complaint of melena: Status: Acute Plan: we'll plan on consulting Dr. Rodriguez. Follow up with patient's hemoccult when available. (8) Rhabdomyolysis: Status: Acute Plan: I'll continue The patient's IV fluid at this time. I will check a CK level this morning and repeat it daily. (9) Acute dehydration: Status: Resolved Plan: Intravenous hydration . (10) Acute renal failure: Status: Resolved Qualifiers: Acute renal failure type: unspecified Qualified Code(s): N17.9 - Acute kidney failure, unspecified Plan: I will change his IV fluid to kvo this morning. 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 Ween down O2.
[2021-10-10] MEDS: XOPENEX 1.25 MG/3 ML NEBULE NEB SCH ×2 (14:48→21:17)
[2021-10-10] MEDS: SOLU-Medrol 125 MG VIAL IVP SCH (22:20)
[2021-10-10] MEDS: ULTRAM PO PRN (22:20)
[2021-10-11] MEDS: THORAZINE INJ 25 MG AMP IVP PRN (01:05)
[2021-10-11 05:10] LABS: BASOPHILS % (AUTO) 0.4 % (0.2-1.0); HEMATOCRIT 23.4 % (42.0-54.0); HEMOGLOBIN 7.8 g/dL (13.5-18.0); LYMPHOCYTES # (AUTO) 0.3 X10^3/uL (1.3-2.9); LYMPHOCYTES % (AUTO) 4.3 % (21.0-51.0); MEAN CORPUSCULAR HEMOGLOBIN 29.5 pg (27.0-34.0); MEAN CORPUSCULAR HGB CONC 33.3 g/dL (33.0-35.0); MEAN CORPUSCULAR VOLUME 88.6 fL (80.0-100.0); MEAN PLATELET VOLUME 9.7 fL (7.4-11.0); MONOCYTES # (AUTO) 0.1 x10^3/uL (0.3-0.8); MONOCYTES % (AUTO) 1.1 % (0.0-13.0); NEUTROPHILS # (AUTO) 6.9 x10^3/uL (2.2-4.8); NEUTROPHILS % (AUTO) 94.2 % (42.0-75.0); RED BLOOD COUNT 2.64 X10^6/uL (4.7-6.0); RED CELL DISTRIBUTION WIDTH 14.5 % (11.6-16.5); WHITE BLOOD COUNT 7.3 X10^3/uL (3.6-10.0)
[2021-10-11 05:17] LABS: ALANINE AMINOTRANSFERASE 19 Units/L (12-78); ALKALINE PHOSPHATASE 151 Units/L (46-116); ASPARTATE AMINO TRANSFERASE 25 Units/L (15-37); BLOOD UREA NITROGEN 22 mg/dL (7-18); CHLORIDE 99 mmol/L (98-107); COR CA(FOR HYPOALB) 9.6 mg/dL (8.5-10.1); COR NA(FOR HYPERGLY) 136 mmol/L (136-145); CREATININE 1.15 mg/dL (0.70-1.30); SODIUM 135 mmol/L (136-145); TOTAL PROTEIN 5.8 g/dL (6.4-8.2); eGFR NON BLACK RACES > 60 (>60)
[2021-10-11] MEDS: XOPENEX 1.25 MG/3 ML NEBULE NEB SCH ×3 (05:41→20:43)
[2021-10-11 05:56] LABS: PLATELET MORPHOLOGY COMMENT NORMAL (NORMAL)
[2021-10-11] MEDS: SOLU-Medrol 125 MG VIAL IVP SCH ×3 (06:13→21:08)
[2021-10-11] MEDS ORDERED: ZESTRIL TAB 20 MG ONE (08:12)
[2021-10-11] MEDS: HYDROCHLOROTHIAZIDE 12.5 MG CAP PO SCH (08:21)
[2021-10-11] MEDS: HEMOCYTE-PLUS PO SCH (08:21)
[2021-10-11] MEDS: TOPROL XL PO SCH (08:22)
[2021-10-11] MEDS: PEPCID TAB 20 MG PO SCH (08:22)
[2021-10-11] MEDS: K-DUR TAB 20 MEQ PO PRN (08:22)
[2021-10-11] MEDS: LEVAQUIN PREMIX IV 500 MG 500 MG/100 ML BAG IV SCH (08:22)
[2021-10-11] MEDS: PROTONIX INJ 40 MG VIAL IVP SCH ×2 (08:23→21:07)
[2021-10-11] MEDS: ZESTRIL TAB 20 MG PO SCH (08:24)
[2021-10-11] MEDS ORDERED: NS 250 ML IV 250 ML IV ONE (08:34)
[2021-10-11] MEDS: MAGNESIUM SULFATE 1 GRAM/100 mL PREMIX 1 G/100 ML BAG IV PRN ×2 (09:30→13:25)
--- NOTE | 2021-10-11 20:51 | PCM.PROG ---
Progress Note Progress Note for Day of Date of Exam: 10/11/21 Subjective Subjective: The patient is awake this morning. The patient is less confused this am. Case management has found a NH that will take patient. He is still mildly hypoxic with O2 sats in the mid 90's on NC. Plan on discharge in 1-3 days. 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 No other complaints noted this morning. Continue current treatment neck no changes. Past Medical Family Social History Past Med/Fam/Surg Hx: No changes since H&P Allergies: Allergies Penicillins Allergy (Verified 10/02/21 14:01) Review of Systems ROS: No change since H&P Vital Signs and I&O's Vital Signs: Temperature 98.1 F Pulse Rate 81 Respiratory Rate 22 Blood Pressure [Left Arm] 104/56 Blood Pressure 122/64 O2 Sat by Pulse Oximetry 95 Intake and Output: Intake & Output 10/09/21 10/10/21 10/11/21 10/12/21 11:59 11:59 11:59 11:59 Intake Total 2010 2547 / 2547 1655 / 1655 1400 / 1400 Output Total 1100 / 1100 2925 / 2925 1200 / 1200 300 / 300 Balance 911 / 911 -378 / -378 455 / 455 1100 / 1100 Physical Exam Oriented: Normal Eyes: Normal Ear: Normal Nose: Normal Throat: Normal Respiratory: Wheezes and Rhonchi Cardiovascular: Normal : Normal Auscultation: Bowel Sounds: Normal Tenderness: Epigastric (soft , flat abdomen with tenderness to deep pallation . no rebound .) Skin: Decreased Turgur Musculoskeletal: Left, Shoulder (Left shoulder blade pain. ) and Back:Thoracic (Painful to palpation over the T8 vertebrae. ) Psychiatric: Normal Mood Description: Calm Affect: Normal Speech Pattern: Clear and Appropriate Laboratory and Diagnostics Result Diagrams: 10/11/21 03:54 10/11/21 03:54 Labs: 10/02/21 15:33 Blood Blood Culture - Final 10/02/21 15:27 Blood Blood Culture - Final Laboratory WBC 7.3 X10^3/uL (3.6-10.0) 10/11/21 03:54 RBC 2.64 X10^6/uL (4.7-6.0) L 10/11/21 03:54 Hgb 7.8 g/dL (13.5-18.0) L 10/11/21 03:54 Hct 23.4 % (42.0-54.0) L 10/11/21 03:54 MCV 88.6 fL (80.0-100.0) 10/11/21 03:54 MCH 29.5 pg (27.0-34.0) 10/11/21 03:54 MCHC 33.3 g/dL (33.0-35.0) 10/11/21 03:54 RDW 14.5 % (11.6-16.5) 10/11/21 03:54 Plt Count 260 X10^3/uL (150.0-450.0) 10/11/21 03:54 Plt Count Comment Adequate (ADEQUATE) 10/11/21 03:54 MPV 9.7 fL (7.4-11.0) 10/11/21 03:54 Neut % (Auto) 94.2 % (42.0-75.0) H 10/11/21 03:54 Lymph % (Auto) 4.3 % (21.0-51.0) L 10/11/21 03:54 [place] % (Auto) 1.1 % (0.0-13.0) 10/11/21 03:54 Eos % (Auto) 0.0 % (0.9-2.9) L 10/11/21 03:54 Baso % (Auto) 0.4 % (0.2-1.0) 10/11/21 03:54 Neut # (Auto) 6.9 x10^3/uL (2.2-4.8) H 10/11/21 03:54 Lymph # (Auto) 0.3 X10^3/uL (1.3-2.9) L 10/11/21 03:54 [place] # (Auto) 0.1 x10^3/uL (0.3-0.8) L 10/11/21 03:54 Eos # (Auto) 0.0 x10^3/uL (0.0-0.2) 10/11/21 03:54 Baso # (Auto) 0.0 X10^3/uL (0.0-0.1) 10/11/21 03:54 Absolute Nucleated RBC 0.0 /100WBC 10/11/21 03:54 Total Counted 100 10/11/21 03:54 Neutrophils % (Manual) 95 % (39-76) H 10/11/21 03:54 Lymphocytes % (Manual) 4 % (13-43) L 10/11/21 03:54 Monocytes % (Manual) 1 % (4-9) L 10/11/21 03:54 Plt Morphology Comment Normal (NORMAL) 10/11/21 03:54 RBC Morphology Normal (NORMAL) 10/11/21 03:54 PT 14.8 SECONDS (11.8-14.3) 10/03/21 04:25 INR Target Range - 10/03/21 04:25 INR 1.21 (0.8-1.3) 10/03/21 04:25 APTT 20.0 SECONDS (22.9-36.5) L 10/03/21 04:25 PTT Comment - 10/03/21 04:25 Sodium 135 mmol/L (136-145) L 10/11/21 03:54 Corrected Sodium 136 mmol/L (136-145) 10/11/21 03:54 Potassium 3.8 mmol/L (3.5-5.1) 10/11/21 03:54 Chloride 99 mmol/L (98-107) 10/11/21 03:54 Carbon Dioxide 33.0 mmol/L (21-32) H 10/11/21 03:54 BUN 22 mg/dL (7-18) H 10/11/21 03:54 Creatinine 1.15 mg/dL (0.70-1.30) 10/11/21 03:54 Est GFR (MDRD) Af Amer > 60 (>60) 10/11/21 03:54 Est GFR (MDRD) Non-Af > 60 (>60) 10/11/21 03:54 Glucose 142 mg/dL (65-99) H 10/11/21 03:54 Lactic Acid 2.5 mmol/L (0.4-2.0) H 10/02/21 14:15 Calcium 8.0 mg/dL (8.5-10.1) L 10/11/21 03:54 Corrected Calcium 9.6 mg/dL (8.5-10.1) 10/11/21 03:54 Magnesium 1.9 mg/dL (1.7-2.9) 10/11/21 03:54 Iron 14 ug/dL (50-175) L 10/04/21 04:46 Transferrin 154 mg/dL (202-364) L 10/04/21 04:46 Ferritin 245 ng/mL (26-388) 10/04/21 04:46 Total Bilirubin 0.20 mg/dL (0.2-1.0) 10/11/21 03:54 AST 25 Units/L (15-37) 10/11/21 03:54 ALT 19 Units/L (12-78) 10/11/21 03:54 Alkaline Phosphatase 151 Units/L (46-116) H 10/11/21 03:54 Creatine Kinase 54 Units/L (39-308) 10/10/21 04:55 CK-MB (CK-2) 7.6 ng/mL (0-4.0) H* 10/03/21 04:25 CK/CKMB % Calc 0.2 % (<4) 10/03/21 04:25 Troponin I High Sens 52.3 ng/L (4.0-60.0) 10/03/21 04:25 B-Natriuretic Peptide 115 pg/mL (0-79) H 10/10/21 04:55 Total Protein 5.8 g/dL (6.4-8.2) L 10/11/21 03:54 Albumin 2.0 g/dL (3.4-5.0) L 10/11/21 03:54 Globulin 3.8 g/dL (2.5-4.5) 10/11/21 03:54 Albumin/Globulin Ratio 0.5 Ratio (1.1-2.1) L 10/11/21 03:54 Vitamin B12 577 pg/mL (193-986) 10/04/21 04:46 Folate 6.6 ng/mL (>8.6) L 10/04/21 04:46 TSH 3rd Generation 0.859 uIU/mL (0.358-3.74) 10/02/21 14:15 Specimen Type Catherized urine 10/02/21 01:08 Urine Color Yellow (YELLOW) 10/02/21 01:08 Urine Appearance Clear (CLEAR) 10/02/21 01:08 Urine pH 5.0 (5.0 - 8.0) 10/02/21 01:08 Ur Specific [place] 1.020 (1.000-1.030) 10/02/21 01:08 Urine Protein 1+ (NEGATIVE) 10/02/21 01:08 Urine Glucose (UA) Negative (NEGATIVE) 10/02/21 01:08 Urine Ketones Negative (NEGATIVE) 10/02/21 01:08 Urine Occult Blood 1+ (NEGATIVE) 10/02/21 01:08 Urine Nitrite Negative (NEGATIVE) 10/02/21 01:08 Urine Bilirubin 1+ (NEGATIVE) 10/02/21 01:08 Urine Urobilinogen Normal (NORMAL) 10/02/21 01:08 Ur Leukocyte Esterase Negative (NEGATIVE) 10/02/21 01:08 Urine RBC None seen /HPF (0-3) 10/02/21 01:08 Urine WBC None seen /HPF (0-5) 10/02/21 01:08 Ur Squamous Epith Cells Rare /HPF (NEGATIVE) 10/02/21 01:08 Urine Bacteria Negative /HPF (NEGATIVE) 10/02/21 01:08 Ur Culture Indicated? No/not indicated 10/02/21 01:08 Stool Description Fob tube 10/04/21 19:50 Stl Occult Blood (IFOB) Negative (NEGATIVE) 10/04/21 19:50 Theophylline < 2.0 ug/mL (10-20) L 10/02/21 14:15 SARS-CoV-2 (PCR) Negative (NEGATIVE) 10/02/21 15:58 Influenza Type A (PCR) Negative (NEGATIVE) 10/02/21 15:58 Influenza Type B (PCR) Negative (NEGATIVE) 10/02/21 15:58 RSV (PCR) Negative (NEGATIVE) 10/02/21 15:58 Tissue Pathology To follow 10/03/21 13:10 Plan (1) HTN (hypertension): Status: Acute Qualifiers: Hypertension type: unspecified Qualified Code(s): I10 - Essential (primary) hypertension Plan: The patient is on Metoprolol ER 50 mg PO Q day. I will increase his metoprolol ER to 100 mg by mouth daily for better blood pressure control. I am also going to start him on jet nebs to see if this helps improve his O2 sat. (2) Thoracic spine fracture: Status: Acute Qualifiers: Encounter type: initial encounter Fracture morphology: unspecified fracture morphology Fracture type: closed Thoracic vertebra fracture level: T8 Qualified Code(s): S22.069A - Unspecified fracture of T7-T8 vertebra, initial encounter for closed fracture Plan: pain control. (3) Closed left scapular fracture: Status: Acute Qualifiers: Encounter type: initial encounter Fracture alignment: nondisplaced Scapula location: body Qualified Code(s): S42.115A - Nondisplaced fracture of body of scapula, left shoulder, initial encounter for closed fracture Plan: Pain control. (4) Weakness generalized: Status: Acute Plan: Physical Therapy consultation, will follow up with their recommend ations. (5) Fall: Status: Acute Qualifiers: Encounter type: initial encounter Qualified Code(s): W19.XXXA - Unspecified fall, initial encounter (6) Anemia: Status: Acute Qualifiers: Anemia type: iron deficiency Plan: The patient's iron panel from yesterday shows that he is iron deficiency anemia and also a low folate level. The patient is having a colonoscopy tomorrow to rule out a bleed. This morning start patient on ferrous gluconate 324 mg by mouth daily and folate 1 mcg by mouth daily. (7) Complaint of melena: Status: Acute Plan: we'll plan on consulting Dr. Rodriguez. Follow up with patient's hemoccult when available. (8) Rhabdomyolysis: Status: Acute Plan: I'll continue The patient's IV fluid at this time. I will check a CK level this morning and repeat it daily. (9) Acute dehydration: Status: Resolved Plan: Intravenous hydration . (10) Acute renal failure: Status: Resolved Qualifiers: Acute renal failure type: unspecified Qualified Code(s): N17.9 - Acute kidney failure, unspecified Plan: I will change his IV fluid to kvo this morning. 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 Ween down O2.
[2021-10-11] MEDS: MILK OF MAGNESIA PO SCH ×2 (21:06→21:19)
[2021-10-11] MEDS: COLACE CAP 100 MG PO SCH ×2 (21:06→21:19)
[2021-10-11] MEDS: ZOFRAN INJ 4 MG VIAL IVP PRN (22:18)
[2021-10-12 05:11] LABS: BASOPHILS % (AUTO) 0.1 % (0.2-1.0); HEMATOCRIT 23.1 % (42.0-54.0); HEMOGLOBIN 7.7 g/dL (13.5-18.0); LYMPHOCYTES # (AUTO) 0.3 X10^3/uL (1.3-2.9); LYMPHOCYTES % (AUTO) 2.4 % (21.0-51.0); MEAN CORPUSCULAR HEMOGLOBIN 29.6 pg (27.0-34.0); MEAN CORPUSCULAR HGB CONC 33.4 g/dL (33.0-35.0); MEAN CORPUSCULAR VOLUME 88.6 fL (80.0-100.0); MEAN PLATELET VOLUME 9.1 fL (7.4-11.0); MONOCYTES # (AUTO) 0.2 x10^3/uL (0.3-0.8); MONOCYTES % (AUTO) 1.1 % (0.0-13.0); NEUTROPHILS # (AUTO) 13.5 x10^3/uL (2.2-4.8); NEUTROPHILS % (AUTO) 96.4 % (42.0-75.0); RED CELL DISTRIBUTION WIDTH 14.2 % (11.6-16.5)
[2021-10-12] MEDS: XOPENEX 1.25 MG/3 ML NEBULE NEB SCH ×3 (05:14→20:15)
[2021-10-12 05:28] LABS: ALANINE AMINOTRANSFERASE 21 Units/L (12-78); ALBUMIN 1.9 g/dL (3.4-5.0); ALKALINE PHOSPHATASE 140 Units/L (46-116); ASPARTATE AMINO TRANSFERASE 22 Units/L (15-37); BLOOD UREA NITROGEN 33 mg/dL (7-18); CALCIUM 7.6 mg/dL (8.5-10.1); CARBON DIOXIDE 31.6 mmol/L (21-32); CHLORIDE 100 mmol/L (98-107); COR CA(FOR HYPOALB) 9.3 mg/dL (8.5-10.1); COR NA(FOR HYPERGLY) 136 mmol/L (136-145); CREATININE 1.39 mg/dL (0.70-1.30); SODIUM 135 mmol/L (136-145); TOTAL PROTEIN 5.3 g/dL (6.4-8.2); eGFR NON BLACK RACES 52 (>60)
[2021-10-12] MEDS: SOLU-Medrol 125 MG VIAL IVP SCH ×3 (05:57→21:06)
[2021-10-12 06:01] LABS: PLATELET MORPHOLOGY COMMENT NORMAL (NORMAL)
[2021-10-12] MEDS ORDERED: ZESTRIL TAB 20 MG ONE (08:12)
[2021-10-12] MEDS: HEMOCYTE-PLUS PO SCH (08:13)
[2021-10-12] MEDS: LEVAQUIN PREMIX IV 500 MG 500 MG/100 ML BAG IV SCH (08:14)
[2021-10-12] MEDS: PEPCID TAB 20 MG PO SCH (08:14)
[2021-10-12] MEDS: HYDROCHLOROTHIAZIDE 12.5 MG CAP PO SCH (08:14)
[2021-10-12] MEDS: PROTONIX INJ 40 MG VIAL IVP SCH ×2 (08:15→20:06)
[2021-10-12] MEDS: MILK OF MAGNESIA PO SCH ×2 (08:15→20:06)
[2021-10-12] MEDS: ZESTRIL TAB 20 MG PO SCH (08:15)
[2021-10-12] MEDS: TOPROL XL PO SCH (08:15)
--- NOTE | 2021-10-12 10:08 | PCM.PROG ---
Progress Note Progress Note for Day of Date of Exam: 10/12/21 Subjective Subjective: The patient is awake this morning. The patient is not confused this am. He is still mildly hypoxic with O2 sats in the mid 90's on 2L NC. Plan on discharge in 1 day. 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 No other complaints noted this morning. Continue current treatment, no new changes. I will transfer him to [place], [place] shows a hip for him for inpatient physical therapy. Past Medical Family Social History Past Med/Fam/Surg Hx: No changes since H&P Allergies: Allergies Penicillins Allergy (Verified 10/02/21 14:01) Review of Systems ROS: No change since H&P Vital Signs and I&O's Vital Signs: Temperature 97.4 F Pulse Rate 78 Respiratory Rate 16 Blood Pressure [Left Arm] 104/56 Blood Pressure 121/58 O2 Sat by Pulse Oximetry 97 Intake and Output: Intake & Output 10/09/21 10/10/21 10/11/21 10/12/21 11:59 11:59 11:59 11:59 Intake Total 2010 2547 / 2547 1655 / 1655 2310 / 2310 Output Total 1100 / 1100 2925 / 2925 1200 / 1200 1600 / 1600 Balance 911 / 911 -378 / -378 455 / 455 710 / 710 Physical Exam Oriented: Normal Eyes: Normal Ear: Normal Nose: Normal Throat: Normal Respiratory: Wheezes and Rhonchi Cardiovascular: Normal : Normal Auscultation: Bowel Sounds: Normal Tenderness: Epigastric (soft , flat abdomen with tenderness to deep pallation . no rebound .) Skin: Decreased Turgur Musculoskeletal: Left, Shoulder (Left shoulder blade pain. ) and Back:Thoracic (Painful to palpation over the T8 vertebrae. ) Psychiatric: Normal Mood Description: Calm Affect: Normal Speech Pattern: Clear and Appropriate Laboratory and Diagnostics Result Diagrams: 10/12/21 04:35 10/12/21 04:35 Labs: 10/02/21 15:33 Blood Blood Culture - Final 10/02/21 15:27 Blood Blood Culture - Final Laboratory WBC 14.0 X10^3/uL (3.6-10.0) H 10/12/21 04:35 RBC 2.60 X10^6/uL (4.7-6.0) L 10/12/21 04:35 Hgb 7.7 g/dL (13.5-18.0) L 10/12/21 04:35 Hct 23.1 % (42.0-54.0) L 10/12/21 04:35 MCV 88.6 fL (80.0-100.0) 10/12/21 04:35 MCH 29.6 pg (27.0-34.0) 10/12/21 04:35 MCHC 33.4 g/dL (33.0-35.0) 10/12/21 04:35 RDW 14.2 % (11.6-16.5) 10/12/21 04:35 Plt Count 264 X10^3/uL (150.0-450.0) 10/12/21 04:35 Plt Count Comment Adequate (ADEQUATE) 10/12/21 04:35 MPV 9.1 fL (7.4-11.0) 10/12/21 04:35 Neut % (Auto) 96.4 % (42.0-75.0) H 10/12/21 04:35 Lymph % (Auto) 2.4 % (21.0-51.0) L 10/12/21 04:35 [place] % (Auto) 1.1 % (0.0-13.0) 10/12/21 04:35 Eos % (Auto) 0.0 % (0.9-2.9) L 10/12/21 04:35 Baso % (Auto) 0.1 % (0.2-1.0) L 10/12/21 04:35 Neut # (Auto) 13.5 x10^3/uL (2.2-4.8) H 10/12/21 04:35 Lymph # (Auto) 0.3 X10^3/uL (1.3-2.9) L 10/12/21 04:35 [place] # (Auto) 0.2 x10^3/uL (0.3-0.8) L 10/12/21 04:35 Eos # (Auto) 0.0 x10^3/uL (0.0-0.2) 10/12/21 04:35 Baso # (Auto) 0.0 X10^3/uL (0.0-0.1) 10/12/21 04:35 Absolute Nucleated RBC 0.0 /100WBC 10/12/21 04:35 Total Counted 100 10/12/21 04:35 Neutrophils % (Manual) 98 % (39-76) H 10/12/21 04:35 Lymphocytes % (Manual) 2 % (13-43) L 10/12/21 04:35 Monocytes % (Manual) 1 % (4-9) L 10/11/21 03:54 Plt Morphology Comment Normal (NORMAL) 10/12/21 04:35 RBC Morphology Normal (NORMAL) 10/12/21 04:35 PT 14.8 SECONDS (11.8-14.3) 10/03/21 04:25 INR Target Range - 10/03/21 04:25 INR 1.21 (0.8-1.3) 10/03/21 04:25 APTT 20.0 SECONDS (22.9-36.5) L 10/03/21 04:25 PTT Comment - 10/03/21 04:25 Sodium 135 mmol/L (136-145) L 10/12/21 04:35 Corrected Sodium 136 mmol/L (136-145) 10/12/21 04:35 Potassium 4.0 mmol/L (3.5-5.1) 10/12/21 04:35 Chloride 100 mmol/L (98-107) 10/12/21 04:35 Carbon Dioxide 31.6 mmol/L (21-32) 10/12/21 04:35 BUN 33 mg/dL (7-18) H 10/12/21 04:35 Creatinine 1.39 mg/dL (0.70-1.30) H 10/12/21 04:35 Est GFR (MDRD) Af Amer > 60 (>60) 10/12/21 04:35 Est GFR (MDRD) Non-Af 52 (>60) L 10/12/21 04:35 Glucose 144 mg/dL (65-99) H 10/12/21 04:35 Lactic Acid 2.5 mmol/L (0.4-2.0) H 10/02/21 14:15 Calcium 7.6 mg/dL (8.5-10.1) L 10/12/21 04:35 Corrected Calcium 9.3 mg/dL (8.5-10.1) 10/12/21 04:35 Magnesium 2.0 mg/dL (1.7-2.9) 10/12/21 04:35 Iron 14 ug/dL (50-175) L 10/04/21 04:46 Transferrin 154 mg/dL (202-364) L 10/04/21 04:46 Ferritin 245 ng/mL (26-388) 10/04/21 04:46 Total Bilirubin 0.20 mg/dL (0.2-1.0) 10/12/21 04:35 AST 22 Units/L (15-37) 10/12/21 04:35 ALT 21 Units/L (12-78) 10/12/21 04:35 Alkaline Phosphatase 140 Units/L (46-116) H 10/12/21 04:35 Creatine Kinase 54 Units/L (39-308) 10/10/21 04:55 CK-MB (CK-2) 7.6 ng/mL (0-4.0) H* 10/03/21 04:25 CK/CKMB % Calc 0.2 % (<4) 10/03/21 04:25 Troponin I High Sens 52.3 ng/L (4.0-60.0) 10/03/21 04:25 B-Natriuretic Peptide 115 pg/mL (0-79) H 10/10/21 04:55 Total Protein 5.3 g/dL (6.4-8.2) L 10/12/21 04:35 Albumin 1.9 g/dL (3.4-5.0) L 10/12/21 04:35 Globulin 3.4 g/dL (2.5-4.5) 10/12/21 04:35 Albumin/Globulin Ratio 0.6 Ratio (1.1-2.1) L 10/12/21 04:35 Vitamin B12 577 pg/mL (193-986) 10/04/21 04:46 Folate 6.6 ng/mL (>8.6) L 10/04/21 04:46 TSH 3rd Generation 0.859 uIU/mL (0.358-3.74) 10/02/21 14:15 Specimen Type Catherized urine 10/02/21 01:08 Urine Color Yellow (YELLOW) 10/02/21 01:08 Urine Appearance Clear (CLEAR) 10/02/21 01:08 Urine pH 5.0 (5.0 - 8.0) 10/02/21 01:08 Ur Specific [place] 1.020 (1.000-1.030) 10/02/21 01:08 Urine Protein 1+ (NEGATIVE) 10/02/21 01:08 Urine Glucose (UA) Negative (NEGATIVE) 10/02/21 01:08 Urine Ketones Negative (NEGATIVE) 10/02/21 01:08 Urine Occult Blood 1+ (NEGATIVE) 10/02/21 01:08 Urine Nitrite Negative (NEGATIVE) 10/02/21 01:08 Urine Bilirubin 1+ (NEGATIVE) 10/02/21 01:08 Urine Urobilinogen Normal (NORMAL) 10/02/21 01:08 Ur Leukocyte Esterase Negative (NEGATIVE) 10/02/21 01:08 Urine RBC None seen /HPF (0-3) 10/02/21 01:08 Urine WBC None seen /HPF (0-5) 10/02/21 01:08 Ur Squamous Epith Cells Rare /HPF (NEGATIVE) 10/02/21 01:08 Urine Bacteria Negative /HPF (NEGATIVE) 10/02/21 01:08 Ur Culture Indicated? No/not indicated 10/02/21 01:08 Stool Description Fob tube 10/04/21 19:50 Stl Occult Blood (IFOB) Negative (NEGATIVE) 10/04/21 19:50 Theophylline < 2.0 ug/mL (10-20) L 10/02/21 14:15 SARS-CoV-2 (PCR) Negative (NEGATIVE) 10/02/21 15:58 Influenza Type A (PCR) Negative (NEGATIVE) 10/02/21 15:58 Influenza Type B (PCR) Negative (NEGATIVE) 10/02/21 15:58 RSV (PCR) Negative (NEGATIVE) 10/02/21 15:58 Tissue Pathology To follow 10/03/21 13:10 Plan (1) HTN (hypertension): Status: Acute Qualifiers: Hypertension type: unspecified Qualified Code(s): I10 - Essential (primary) hypertension Plan: The patient is on Metoprolol ER 50 mg PO Q day. I will increase his metoprolol ER to 100 mg by mouth daily for better blood pressure control. (2) Thoracic spine fracture: Status: Acute Qualifiers: Encounter type: initial encounter Fracture morphology: unspecified fracture morphology Fracture type: closed Thoracic vertebra fracture level: T8 Qualified Code(s): S22.069A - Unspecified fracture of T7-T8 vertebra, initial encounter for closed fracture Plan: pain control. (3) Closed left scapular fracture: Status: Acute Qualifiers: Encounter type: initial encounter Fracture alignment: nondisplaced Scapula location: body Qualified Code(s): S42.115A - Nondisplaced fracture of body of scapula, left shoulder, initial encounter for closed fracture Plan: Pain control. (4) Weakness generalized: Status: Acute Plan: Physical Therapy consultation, will follow up with their recommendations. (5) Fall: Status: Acute Qualifiers: Encounter type: initial encounter Qualified Code(s): W19.XXXA - Unspecified fall, initial encounter (6) Anemia: Status: Acute Qualifiers: Anemia type: iron deficiency Plan: The patient's iron panel from yesterday shows that he is iron deficiency anemia and also a low folate level. The patient is having a colonoscopy tomorrow to rule out a bleed. This morning start patient on ferrous gluconate 324 mg by mouth daily and folate 1 mcg by mouth daily. (7) Complaint of melena: Status: Acute Plan: we'll plan on consulting Dr. Rodriguez. Follow up with patient's hemoccult when available. (8) Rhabdomyolysis: Status: Resolved Plan: Patient's IV has been hep-locked. (9) Acute dehydration: Status: Resolved Plan: Intravenous hydration . (10) Acute renal failure: Status: Resolved Qualifiers: Acute renal failure type: unspecified Qualified Code(s): N17.9 - Acute kidney failure, unspecified Plan: I will change his IV fluid to kvo this morning. 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 Ween down O2.
[2021-10-12] MEDS: COLACE CAP 100 MG PO SCH (20:05)
[2021-10-12] MEDS: ZOFRAN INJ 4 MG VIAL IVP PRN (21:00)
[2021-10-13] MEDS: ULTRAM PO PRN (02:36)
[2021-10-13 05:20] LABS: BASOPHILS % (AUTO) 0.1 % (0.2-1.0); HEMATOCRIT 26.2 % (42.0-54.0); HEMOGLOBIN 8.7 g/dL (13.5-18.0); LYMPHOCYTES # (AUTO) 0.5 X10^3/uL (1.3-2.9); LYMPHOCYTES % (AUTO) 3.6 % (21.0-51.0); MEAN CORPUSCULAR HEMOGLOBIN 29.4 pg (27.0-34.0); MEAN CORPUSCULAR VOLUME 88.9 fL (80.0-100.0); MEAN PLATELET VOLUME 9.3 fL (7.4-11.0); MONOCYTES # (AUTO) 0.4 x10^3/uL (0.3-0.8); MONOCYTES % (AUTO) 2.6 % (0.0-13.0); NEUTROPHILS # (AUTO) 13.1 x10^3/uL (2.2-4.8); NEUTROPHILS % (AUTO) 93.7 % (42.0-75.0); RED BLOOD COUNT 2.94 X10^6/uL (4.7-6.0); RED CELL DISTRIBUTION WIDTH 14.4 % (11.6-16.5)
[2021-10-13 05:32] LABS: ALANINE AMINOTRANSFERASE 20 Units/L (12-78); ALBUMIN 2.2 g/dL (3.4-5.0); ALKALINE PHOSPHATASE 162 Units/L (46-116); ASPARTATE AMINO TRANSFERASE 22 Units/L (15-37); BLOOD UREA NITROGEN 36 mg/dL (7-18); CALCIUM 7.6 mg/dL (8.5-10.1); CARBON DIOXIDE 31.9 mmol/L (21-32); CHLORIDE 100 mmol/L (98-107); COR NA(FOR HYPERGLY) 137 mmol/L (136-145); CREATININE 1.43 mg/dL (0.70-1.30); SODIUM 136 mmol/L (136-145); TOTAL PROTEIN 5.9 g/dL (6.4-8.2); eGFR NON BLACK RACES 51 (>60)
[2021-10-13] MEDS: XOPENEX 1.25 MG/3 ML NEBULE NEB SCH ×2 (05:40→13:15)
[2021-10-13 05:53] LABS: BAND NEUTROPHILS % 1 % (0-10)
[2021-10-13 05:54] LABS: PLATELET MORPHOLOGY COMMENT NORMAL (NORMAL)
[2021-10-13] MEDS: SOLU-Medrol 125 MG VIAL IVP SCH (06:21)
[2021-10-13] MEDS ORDERED: ZESTRIL TAB 20 MG ONE (08:29)
[2021-10-13] MEDS: HYDROCHLOROTHIAZIDE 12.5 MG CAP PO SCH (08:50)
[2021-10-13] MEDS: LEVAQUIN PREMIX IV 500 MG 500 MG/100 ML BAG IV SCH (08:50)
[2021-10-13] MEDS: PROTONIX INJ 40 MG VIAL IVP SCH (08:50)
[2021-10-13] MEDS: HEMOCYTE-PLUS PO SCH (08:50)
[2021-10-13] MEDS: ZESTRIL TAB 20 MG PO SCH (08:51)
[2021-10-13] MEDS: PEPCID TAB 20 MG PO SCH (08:51)
[2021-10-13] MEDS: TOPROL XL PO SCH (08:51)
[2021-10-13] MEDS ORDERED: LASIX PO PRN (09:29)
[2021-10-13] MEDS ORDERED: LEVAQUIN TAB 500 MG PO SCH (10:00)
[2021-10-13] MEDS ORDERED: PriLOSEC PO SCH (10:00)
[2021-10-13] MEDS: MEDROL DOSEPAK 4 MG PER TAB PO SCH ×3 (13:06→14:22)
[2021-10-13 13:26] VITALS: BP 116/65
[2021-10-13] MEDS: MILK OF MAGNESIA PO SCH (14:21)
[2021-10-14] MEDS ORDERED: MEDROL DOSEPAK 4 MG PER TAB PO SCH ×2 (06:00→20:00)
[2021-10-14] MEDS ORDERED: MEDROL DOSEPAK 4 MG PER TAB PO NR (09:00)
[2021-10-15] MEDS ORDERED: MEDROL DOSEPAK 4 MG PER TAB PO SCH (06:00)
[2021-10-16] MEDS ORDERED: MEDROL DOSEPAK 4 MG PER TAB PO SCH (07:00)
[2021-10-17] MEDS ORDERED: MEDROL DOSEPAK 4 MG PER TAB PO SCH (06:00)
[2021-10-18] MEDS ORDERED: MEDROL DOSEPAK 4 MG PER TAB PO SCH (06:00)
--- NOTE | 2022-01-01 22:02 | PCM.DCPLAN ---
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 Acute renal failure 2. Fall 3. Acute left scapular fracture from fall 4. T8 vertebral fracture from fall 5. Melena 6. Gastritis 7. Hypertension 8. History of asbestosis 9. Congestive heart failure with ejection fraction of 50% 10. Hypoxia now resolved 11. Weakness 12. Rhabdomyolysis now resolved 13. Debilitation Discharge Medications Discharge Medications: Home Medication List atorvastatin 40 mg PO HS 10/02/21 [History] cilostazol 100 mg PO BID 10/02/21 [History] ferrous sulfate 324 mg PO BID 10/02/21 [History] furosemide 20 mg PO BID PRN 10/02/21 [History] indomethacin 50 mg PO BID 10/02/21 [History] lisinopril-hydrochlorothiazide 1 tab PO DAILY 10/02/21 [History] potassium chloride 10 meq PO DAILY 10/02/21 [History] Prescriptions: Hospital Course Vital Signs: Temperature 98.3 F Pulse Rate 66 Respiratory Rate 19 Blood Pressure [Left Arm] 104/56 Blood Pressure 129/63 O2 Sat by Pulse Oximetry 100 Latest Lab Results: Laboratory Last Values WBC 14.0 X10^3/uL (3.6-10.0) H 10/13/21 05:00 RBC 2.94 X10^6/uL (4.7-6.0) L 10/13/21 05:00 Hgb 8.7 g/dL (13.5-18.0) L 10/13/21 05:00 Hct 26.2 % (42.0-54.0) L 10/13/21 05:00 MCV 88.9 fL (80.0-100.0) 10/13/21 05:00 MCH 29.4 pg (27.0-34.0) 10/13/21 05:00 MCHC 33.0 g/dL (33.0-35.0) 10/13/21 05:00 RDW 14.4 % (11.6-16.5) 10/13/21 05:00 Plt Count 308 X10^3/uL (150.0-450.0) 10/13/21 05:00 Plt Count Comment Adequate (ADEQUATE) 10/13/21 05:00 MPV 9.3 fL (7.4-11.0) 10/13/21 05:00 Neut % (Auto) 93.7 % (42.0-75.0) H 10/13/21 05:00 Lymph % (Auto) 3.6 % (21.0-51.0) L 10/13/21 05:00 [place] % (Auto) 2.6 % (0.0-13.0) 10/13/21 05:00 Eos % (Auto) 0.0 % (0.9-2.9) L 10/13/21 05:00 Baso % (Auto) 0.1 % (0.2-1.0) L 10/13/21 05:00 Neut # (Auto) 13.1 x10^3/uL (2.2-4.8) H 10/13/21 05:00 Lymph # (Auto) 0.5 X10^3/uL (1.3-2.9) L 10/13/21 05:00 [place] # (Auto) 0.4 x10^3/uL (0.3-0.8) 10/13/21 05:00 Eos # (Auto) 0.0 x10^3/uL (0.0-0.2) 10/13/21 05:00 Baso # (Auto) 0.0 X10^3/uL (0.0-0.1) 10/13/21 05:00 Absolute Nucleated RBC 0.0 /100WBC 10/13/21 05:00 Total Counted 100 10/13/21 05:00 Neutrophils % (Manual) 94 % (39-76) H 10/13/21 05:00 Band Neutrophils % 1 % (0-10) 10/13/21 05:00 Lymphocytes % (Manual) 2 % (13-43) L 10/13/21 05:00 Monocytes % (Manual) 3 % (4-9) L 10/13/21 05:00 Plt Morphology Comment Normal (NORMAL) 10/13/21 05:00 RBC Morphology Normal (NORMAL) 10/13/21 05:00 PT 14.8 SECONDS (11.8-14.3) 10/03/21 04:25 INR Target Range - 10/03/21 04:25 INR 1.21 (0.8-1.3) 10/03/21 04:25 APTT 20.0 SECONDS (22.9-36.5) L 10/03/21 04:25 PTT Comment - 10/03/21 04:25 Sodium 136 mmol/L (136-145) 10/13/21 05:00 Corrected Sodium 137 mmol/L (136-145) 10/13/21 05:00 Potassium 4.1 mmol/L (3.5-5.1) 10/13/21 05:00 Chloride 100 mmol/L (98-107) 10/13/21 05:00 Carbon Dioxide 31.9 mmol/L (21-32) 10/13/21 05:00 BUN 36 mg/dL (7-18) H 10/13/21 05:00 Creatinine 1.43 mg/dL (0.70-1.30) H 10/13/21 05:00 Est GFR (MDRD) Af Amer > 60 (>60) 10/13/21 05:00 Est GFR (MDRD) Non-Af 51 (>60) L 10/13/21 05:00 Glucose 123 mg/dL (65-99) H 10/13/21 05:00 Lactic Acid 2.5 mmol/L (0.4-2.0) H 10/02/21 14:15 Calcium 7.6 mg/dL (8.5-10.1) L 10/13/21 05:00 Corrected Calcium 9.0 mg/dL (8.5-10.1) 10/13/21 05:00 Magnesium 2.0 mg/dL (1.7-2.9) 10/12/21 04:35 Iron 14 ug/dL (50-175) L 10/04/21 04:46 Transferrin 154 mg/dL (202-364) L 10/04/21 04:46 Ferritin 245 ng/mL (26-388) 10/04/21 04:46 Total Bilirubin 0.20 mg/dL (0.2-1.0) 10/13/21 05:00 AST 22 Units/L (15-37) 10/13/21 05:00 ALT 20 Units/L (12-78) 10/13/21 05:00 Alkaline Phosphatase 162 Units/L (46-116) H 10/13/21 05:00 Creatine Kinase 54 Units/L (39-308) 10/10/21 04:55 CK-MB (CK-2) 7.6 ng/mL (0-4.0) H* 10/03/21 04:25 CK/CKMB % Calc 0.2 % (<4) 10/03/21 04:25 Troponin I High Sens 52.3 ng/L (4.0-60.0) 10/03/21 04:25 B-Natriuretic Peptide 115 pg/mL (0-79) H 10/10/21 04:55 Total Protein 5.9 g/dL (6.4-8.2) L 10/13/21 05:00 Albumin 2.2 g/dL (3.4-5.0) L 10/13/21 05:00 Globulin 3.7 g/dL (2.5-4.5) 10/13/21 05:00 Albumin/Globulin Ratio 0.6 Ratio (1.1-2.1) L 10/13/21 05:00 Vitamin B12 577 pg/mL (193-986) 10/04/21 04:46 Folate 6.6 ng/mL (>8.6) L 10/04/21 04:46 TSH 3rd Generation 0.859 uIU/mL (0.358-3.74) 10/02/21 14:15 Specimen Type Catherized urine 10/02/21 01:08 Urine Color Yellow (YELLOW) 10/02/21 01:08 Urine Appearance Clear (CLEAR) 10/02/21 01:08 Urine pH 5.0 (5.0 - 8.0) 10/02/21 01:08 Ur Specific [place] 1.020 (1.000-1.030) 10/02/21 01:08 Urine Protein 1+ (NEGATIVE) 10/02/21 01:08 Urine Glucose (UA) Negative (NEGATIVE) 10/02/21 01:08 Urine Ketones Negative (NEGATIVE) 10/02/21 01:08 Urine Occult Blood 1+ (NEGATIVE) 10/02/21 01:08 Urine Nitrite Negative (NEGATIVE) 10/02/21 01:08 Urine Bilirubin 1+ (NEGATIVE) 10/02/21 01:08 Urine Urobilinogen Normal (NORMAL) 10/02/21 01:08 Ur Leukocyte Esterase Negative (NEGATIVE) 10/02/21 01:08 Urine RBC None seen /HPF (0-3) 10/02/21 01:08 Urine WBC None seen /HPF (0-5) 10/02/21 01:08 Ur Squamous Epith Cells Rare /HPF (NEGATIVE) 10/02/21 01:08 Urine Bacteria Negative /HPF (NEGATIVE) 10/02/21 01:08 Ur Culture Indicated? No/not indicated 10/02/21 01:08 Stool Description Fob tube 10/04/21 19:50 Stl Occult Blood (IFOB) Negative (NEGATIVE) 10/04/21 19:50 Theophylline < 2.0 ug/mL (10-20) L 10/02/21 14:15 SARS-CoV-2 (PCR) Negative (NEGATIVE) 10/02/21 15:58 Influenza Type A (PCR) Negative (NEGATIVE) 10/02/21 15:58 Influenza Type B (PCR) Negative (NEGATIVE) 10/02/21 15:58 RSV (PCR) Negative (NEGATIVE) 10/02/21 15:58 Tissue Pathology To follow 10/03/21 13:10 Hospital Course: After the patient was admitted he was continued on IV fluid for his profound dehydration. His creatinine had improved to the fours down from the fives from the previous day. He remained mildly confused and did not answer questions appropriately. He remained anemic and complained of melena as well. General surgery Dr. Zayas was consulted so he can do the EGD only which he did and it showed that he had gastritis but no bleeding ulcers. Also noted his CK was high showing that he has some rhabdomyolysis but this resolved over the next several days with IV fluid. He remained anemic and was started on ferrous gluconate 324 mg p.o. daily and later on had a colonoscopy which did not show any active bleeding either. During his hospital stay he was not able to really do much in the way of physical therapy given his weakness. Towards the end of his hospital stay he had developed some hypoxia and was started on 3 L nasal cannula of oxygen. Chest x-ray was done showed increased interstitial markings consistent with fluid overload. His IV fluid was changed to KVO and echo and echocardiogram was done which showed he had an ejection fraction of 50%. Over the next couple days his oxygen level came up after stopping IV fluid. His creatinine had also returned to normal and he was feeling somewhat stronger. I discussed his case with the family members and we were all in agreement that he needed temporary inpatient rehab. maintenance data analyst were able to find him a spot at [facility] in [place], [place] for inpatient physical therapy. Patient was discharged [facility] in [place], [place] in stable condition and he will be following up with me once his stent and inpatient rehab is completed. Instructions Forms: Precautions for COVID[address] [place] [address] Heart Patient Portal Social Distancing
== END 2021-10-13 13:53 | DRG 683 ==
LOC: ICU 14:00 → ER 14:00 → OBSVTOIN 18:03 → ICU 19:00
PROVIDERS: ADMIT Family Medicine; ATTEND Family Medicine
DX: R41.82 Altered mental status, unspecified; W18.39XA Other fall on same level, initial encounter; K29.00 Acute gastritis without bleeding; M62.82 Rhabdomyolysis; D50.8 Other iron deficiency anemias; R29.6 Repeated falls; J61 Pneumoconiosis due to asbestos and other mineral fibers; N17.8 Other acute kidney failure; I10 Essential (primary) hypertension; S22.069A Unspecified fracture of T7-T8 vertebra, initial encounter for closed fracture; R53.1 Weakness; K92.1 Melena; S42.115A Nondisplaced fracture of body of scapula, left shoulder, initial encounter for closed fracture; R94.31 Abnormal electrocardiogram [ECG] [EKG]; Z20.822 Contact with and (suspected) exposure to COVID-19; E86.0 Dehydration; K44.9 Diaphragmatic hernia without obstruction or gangrene; K57.30 Diverticulosis of large intestine without perforation or abscess without bleeding

== ENCOUNTER 2023-05-21 10:05 | Observation (INO) ==
--- NOTE | 2023-05-21 10:19 | DR.SOBA ---
HPI Time Seen Time Seen by Provider: 05/21/23 10:15 Complaints Chief Complaint Doctors Comments: 83-year-old male brought in for evaluation. Patient with a history of CHF, dementia. EMS was called out after patient had a fall at home today, home health care nurse was able to get him off the floor. Patient was short of breath after the fall. On EMS arrival he had mild distress, 91% pulse ox. Doing better on arrival to the ER, on O2. Patient denies any chest pain. He has a slight cough. Chronic, no change. Denies any fevers or chills. Overall he is a poor historian. Does not recall falling this a.m. Reviewed Nurses Notes Reviewed: Yes Source History Provided: Patient and EMS PMH PMH Past Medical History: CHF, Dementia, Dyslipidemia, GERD, Gout and Hypertension Past Surgical History: Yes Surgical History: Ortho Surgery Family History Family Medical History: Cancer Social History Does patient currently use any type of tobacco product: No Alcohol Use: None Do you use any recreational Drugs:: No ROS Review of Systems Unable to Obtain Due To: Dementia PE Vital Signs Vitals: Vital Signs Temperature 98.0 F Pulse Rate 93 Pulse Rate 89 Pulse Rate 89 Pulse Rate 90 Pulse Rate 93 Pulse Rate 92 Pulse Rate 100 Respiratory Rate 16 Respiratory Rate 16 Respiratory Rate 21 Respiratory Rate 21 Respiratory Rate 25 Respiratory Rate 19 Respiratory Rate 18 Blood Pressure 125/60 Blood Pressure 137/85 Blood Pressure 155/75 Blood Pressure 140/86 O2 Sat by Pulse Oximetry 98 O2 Sat by Pulse Oximetry 98 O2 Sat by Pulse Oximetry 98 O2 Sat by Pulse Oximetry 98 General General Appearance: Alert and In No Apparent Distress Eyes Eye exam: PERRL and EOMI ENT ENT Exam: Normal Oropharynx and Mucous Membranes Moist Respiratory Respiratory Exam: Normal Lung Sounds Bilat; negative Accessory Muscle Use or Respiratory Distress Cardiovascular Cardiovascular Exam: Irregular Rhythm and Normal Heart Sounds Abdominal Exam Abdominal Exam: Normal Bowel Sounds and Soft; negative Tenderness Extremities Extremities Exam: Edema (2+, bilateral lower extremities) Neurologic Neurological Exam: Alert and CN II-XII Intact; negative Motor Sensory Deficit Skin Skin Exam: Warm and Dry COURSE Treatment Treatment: 83-year-old male brought in for evaluation. Had shortness of breath this AM. Does have a history of CHF. Has dementia, poor historian. Patient no distress on O2 work-up initiated. 1310 - CXR - with RLL nodule, increased markings. CT chest with IV contrast recommended but radiology. She performed. Patient shows irregular parenchymal densities of the right lower lobe. There is a 2.4/2.6/2.3 nodule. Report is a possible round pneumonia versus neoplastic process. Also a second nodule 1.4 x 1.5 cm the posterior aspect of the right lower lobe. Patient will probably require a PET scan. Labs show his potassium to be low at 2.9, given oral potassium here. troponin elevated to 225 (had a 487.9 on 02/26/23). 2-hour repeat troponin somewhat lower. Discussed with his attending, Dr. Guillory. He will admit for further treatment. [facility]OR Labs Reviewed Laboratory Results Reviewed?: Yes 05/21/23 10:05/21/23 10: Laboratory: WBC 5.4 X10^3/uL (3.6-10.0) 05/21/23 10: RBC 3.80 X10^6/uL (4.7-6.0) L 05/21/23 10:27 Hgb 11.5 g/dL (13.5-18.0) L 05/21/23 10:27 Hct 35.1 % (42.0-54.0) L 05/21/23 10: MCV 92.5 fL (80.0-100.0) 05/21/23 10:27 MCH 30.4 pg (27.0-34.0) 05/21/23 10:27 MCHC 32.8 g/dL (33.0-35.0) L 05/21/23 10:27 RDW 19.4 % (11.6-16.5) H 05/21/23 10:27 Plt Count 226 X10^3/uL (150.0-450.0) 05/21/23 10:27 Plt Count Comment Adequate (ADEQUATE) 05/21/23 10:27 MPV 8.0 fL (7.4-11.0) 05/21/23 10:27 Neut % (Auto) 75.2 % (42.0-75.0) H 05/21/23 10:27 Lymph % (Auto) 13.3 % (21.0-51.0) L 05/21/23 10:27 [place] % (Auto) 7.1 % (0.0-13.0) 05/21/23 10:27 Eos % (Auto) 3.7 % (0.9-2.9) H 05/21/23 10:27 Baso % (Auto) 0.7 % (0.2-1.0) 05/21/23 10:27 Neut # (Auto) 4.1 x10^3/uL (2.2-4.8) 05/21/23 10:27 Lymph # (Auto) 0.7 X10^3/uL (1.3-2.9) L 05/21/23 10:27 [place] # (Auto) 0.4 x10^3/uL (0.3-0.8) 05/21/23 10:27 Eos # (Auto) 0.2 x10^3/uL (0.0-0.2) 05/21/23 10: Baso # (Auto) 0.0 X10^3/uL (0.0-0.1) 05/21/23 10:27 Absolute Nucleated RBC 0.1 /100WBC 05/21/23 10:27 Plt Morphology Comment Normal (NORMAL) 05/21/23 10:27 RBC Morphology Abnormal (NORMAL) 05/21/23 10:27 Poikilocytosis Slight A 05/21/23 10:27 Anisocytosis Slight A 05/21/23 10:27 Sodium 141 mmol/L (136-145) 05/21/23 10:27 Corrected Sodium 141 mmol/L (136-145) 05/21/23 10: Potassium 2.9 mmol/L (3.5-5.1) L* 05/21/23 10: Chloride 103 mmol/L (98-107) 05/21/23 10: Carbon Dioxide 31.4 mmol/L (21-32) 05/21/23 10: BUN 14 mg/dL (7-18) 05/21/23 10:27 Creatinine 1.09 mg/dL (0.70-1.30) 05/21/23 10:27 Est GFR (MDRD) Af Amer > 60 (>60) 05/21/23 10:27 Est GFR (MDRD) Non-Af > 60 (>60) 05/21/23 10:27 Glucose 111 mg/dL (65-99) H 05/21/23 10:27 Calcium 7.6 mg/dL (8.5-10.1) L 05/21/23 10:27 Corrected Calcium 8.6 mg/dL (8.5-10.1) 05/21/23 10:27 Total Bilirubin 0.30 mg/dL (0.2-1.0) 05/21/23 10:27 AST 18 Units/L (15-37) 05/21/23 10:27 ALT 11 Units/L (12-78) L 05/21/23 10:27 Alkaline Phosphatase 179 Units/L (46-116) H 05/21/23 10:27 Troponin I High Sens 216.6 ng/L (4.0-60.0) H* 05/21/23 12:25 B-Natriuretic Peptide 160 pg/mL (0-79) H 05/21/23 10:27 Total Protein 6.6 g/dL (6.4-8.2) 05/21/23 10:27 Albumin 2.7 g/dL (3.4-5.0) L 05/21/23 10:27 Globulin 3.9 g/dL (2.5-4.5) 05/21/23 10:27 Albumin/Globulin Ratio 0.7 Ratio (1.1-2.1) L 05/21/23 10:27 See comments in "Course" EKG Rate: 92 [place]: Normal Rhythm: Afib and PVCs ST: Nonsp Opioid Opioid Risk Tool Age (Gil box if 16-45): No History of Preadolescent Sexual Abuse: No Total: 0 Total Score Risk Category: Low Risk Copyright: Arturo NICK predicting aberrant behaviors Discharge Plan Diagnosis Discharge Problem: Mass of right lung, Acute hypokalemia, Troponin level elevated Discharge Plan Patient Disposition: 01 HOME, SELF-CARE Condition: Stable Orders to Discharge Patient Discharge Orders: Transfer (Routine); Ordered 05/21/23 Ordered By: Sanket Osorio
[2023-05-21 10:24] VITALS: BMI 27.4
--- NOTE | 2023-05-21 10:32 | EKG ---
Test Reason : dyspnea Blood Pressure : */* mmHG Vent. Rate : 92 BPM Atrial Rate : * BPM P-R Int : * ms QRS Dur : 72 ms QT Int : 442 ms P-R-T Axes : * -18 27 degrees QTc Int : 546 ms Atrial fibrillation with premature ventricular or aberrantly conducted complexes Minimal voltage criteria for LVH, may be normal variant ( R in aVL ) Prolonged QT Abnormal ECG When compared with ECG of 26-FEB-2023 18:10, ectopy is new Confirmed by Сергей Carcamo MD ([id number]) on 05/22/2023 8:15:06 AM Referred By: Confirmed By: Сергей Carcamo MD
[2023-05-21 10:37] LABS: EOSINOPHILS # (AUTO) 0.2 x10^3/uL (0.0-0.2); HEMATOCRIT 35.1 % (42.0-54.0); HEMOGLOBIN 11.5 g/dL (13.5-18.0); MONOCYTES # (AUTO) 0.4 x10^3/uL (0.3-0.8); WHITE BLOOD COUNT 5.4 X10^3/uL (3.6-10.0)
[2023-05-21 10:44] LABS: BASOPHILS % (AUTO) 0.7 % (0.2-1.0); EOSINOPHILS % (AUTO) 3.7 % (0.9-2.9); LYMPHOCYTES # (AUTO) 0.7 X10^3/uL (1.3-2.9); LYMPHOCYTES % (AUTO) 13.3 % (21.0-51.0); MEAN CORPUSCULAR HEMOGLOBIN 30.4 pg (27.0-34.0); MEAN CORPUSCULAR HGB CONC 32.8 g/dL (33.0-35.0); MEAN CORPUSCULAR VOLUME 92.5 fL (80.0-100.0); MONOCYTES % (AUTO) 7.1 % (0.0-13.0); NEUTROPHILS # (AUTO) 4.1 x10^3/uL (2.2-4.8); NEUTROPHILS % (AUTO) 75.2 % (42.0-75.0); PLATELET COUNT 226 X10^3/uL (150.0-450.0); RED CELL DISTRIBUTION WIDTH 19.4 % (11.6-16.5)
--- NOTE | 2023-05-21 10:53 | RAD ---
EXAM:Portable chestHISTORY:Shortness of breathCOMPARISON:02/26/2023FINDINGS:Hear t is enlarged. No congestive heart failure is noted. Lungs are well inflated. Diffuse chronic interstitial lung changes are present. There is a new rounded focus of increased density in the right lung base. It measures approximately 3 x 2.[address] chest with contrast is recommended for further evaluation. No other significant parenchymal densities are identified. No pleural effusions. Bony thorax is unremarkable.IMPRESSION:Stable diffuse chronic appearing interstitial lung changesRounded area of abnormal parenchymal density in the right lung base for which chest CT with contrast is recommended for further evaluation.Mild cardiomegaly without congestive heart failureTHIS IS AN ELECTRONICALLY VERIFIED FINAL [id number]/21/2023 10:49 AM - Electronically signed by Carlos Burton MD
[2023-05-21 11:02] LABS: ANISOCYTOSIS SLIGHT; PLATELET MORPHOLOGY COMMENT NORMAL (NORMAL); POIKILOCYTOSIS SLIGHT
[2023-05-21 11:07] LABS: ALANINE AMINOTRANSFERASE 11 Units/L (12-78); ALBUMIN 2.7 g/dL (3.4-5.0); ALKALINE PHOSPHATASE 179 Units/L (46-116); ASPARTATE AMINO TRANSFERASE 18 Units/L (15-37); BLOOD UREA NITROGEN 14 mg/dL (7-18); CALCIUM 7.6 mg/dL (8.5-10.1); CARBON DIOXIDE 31.4 mmol/L (21-32); CHLORIDE 103 mmol/L (98-107); COR CA(FOR HYPOALB) 8.6 mg/dL (8.5-10.1); COR NA(FOR HYPERGLY) 141 mmol/L (136-145); CREATININE 1.09 mg/dL (0.70-1.30); GLUCOSE 111 mg/dL (65-99); SODIUM 141 mmol/L (136-145); TOTAL PROTEIN 6.6 g/dL (6.4-8.2); eGFR NON BLACK RACES > 60 (>60)
[2023-05-21 11:09] LABS: POTASSIUM 2.9 mmol/L (3.5-5.1)
[2023-05-21] MEDS ORDERED: OMNIPAQUE 350 mg/mL 100 mL BTL 100 ML ONE (11:37)
[2023-05-21] MEDS ORDERED: K-DUR TAB 20 MEQ PO STA (12:11)
[2023-05-21] MEDS ORDERED: K-DUR TAB 20 MEQ PO ONE (12:17)
[2023-05-21] MEDS ORDERED: ROCEPHIN VIAL 1 GRAM IVP STA (12:26)
[2023-05-21] MEDS ORDERED: ROCEPHIN VIAL 1 GRAM ONE (12:27)
--- NOTE | 2023-05-21 12:47 | CT ---
EXAM:CHEST WITH CONTRASTHISTORY:Lung infiltrateTECHNIQUE:Axial postcontrast images with coronal and sagittal reformats. Dose reduction procedures were used with mA/kv adjusted for body size.COMPARISON:10/02/2021FINDINGS:[place] of the mediastinum demonstrated no evidence for mediastinal masses, and large mediastinal or enlarged hilar adenopathy. Nonenlarged mediastinal lymph nodes are present. There is a hiatal hernia present. There is dilatation of the ascending aorta maximum AP diameter 4.8 cm. Maximum transverse diameter 4.9 cm. There is a small right pleural effusion present. No definite left pleural effusion is identified. No chest wall or axillary abnormality is identified. Those portions of the upper abdominal organs visualized appeared within normal limits with the exception of cholelithiasis without evidence for cholecystitis examination of the lung abraham demonstrated mild hyperinflation to be present. Diffuse changes of centrilobular emphysema are present throughout the lung abraham most prominently in the upper lobes. There also changes of paraseptal emphysema diffusely. There is pleural-parenchymal scarring in the right upper lobe with some associated traction bronchiectasis present. There is an irregular rounded area of abnormal parenchymal density in the right lower lobe measuring approximately 2.4 by 2.6 by 2.3 cm and corresponding to the abnormality noted on the recent chest x-ray. This could represent a round pneumonia if the patient has signs or symptoms of pneumonia. If that is the case follow-up until complete resolution is recommended. However if the patient does not clinically have pneumonia than neoplasm must be excluded at this time and pulmonary consultation width possibly PET-CT to follow would be indicated. Also new on this examination is a posterior pleural-based nodule measuring 1.4 x 1.5 cm and best visualized on axial series 4 image 28. PET-CT will be required for further evaluation of this nodule.IMPRESSION:2.4 x 2.6 x 2.3 cm rounded abnormal parenchymal density in the right lower lobe as described above corresponding to the lesion noted on chest x-ray. See discussion and recommendations as aboveThere is also a new 1.4 x 1.5 cm posterior peripheral right lower lobe nodule measuring 1.4 x 1.5 cm and requiring PET-CT for further evaluation.Enlargement of the ascending aorta maximum AP diameter 4.8 cm, maximum transverse diameter 4.9 cm.Centrilobular and paraseptal emphysemaHiatal herniaCholelithiasis without evidence for cholecystitisTHIS IS AN ELECTRONICALLY VERIFIED FINAL [id number]/21/2023 12:43 PM - Electronically signed by Carlos Burton MD
[2023-05-21] MEDS ORDERED: ROCEPHIN VIAL 1 GRAM 1 G in NS 100 ML IV 100 ML IV SCH (13:54)
[2023-05-21] MEDS ORDERED: CONSULT PHARMACY - POTASSIUM & MAGNESIUM XX SCH ×2 (14:00→20:00)
[2023-05-21] MEDS ORDERED: POTASSIUM CHL 60 MEQ/NS 0.45% 500 ML 60 MEQ/500 ML BAG IV NR (15:00)
[2023-05-21] MEDS ORDERED: NS 250 ML IV 250 ML IV ONE (15:25)
[2023-05-21] MEDS ORDERED: TUSSIONEX PENNKINETIC SUSP PO PRN (15:50)
[2023-05-21] MEDS ORDERED: XOPENEX 1.25 MG/3 ML NEBULE NEB ONE (16:12)
[2023-05-21] MEDS: XOPENEX 1.25 MG/3 ML NEBULE NEB SCH (16:29)
[2023-05-21] MEDS ORDERED: DUONEB 0.5 MG/3 MG (3 mL) NEB SCH (17:00)
[2023-05-21] MEDS: FORTAZ or TAZICEF VIAL INJ 1 G in NS 100 ML IV 100 ML IV SCH ×2 (17:06→22:45)
[2023-05-21] MEDS: ROBITUSSIN DM PO SCH ×2 (17:06→20:24)
[2023-05-21] MEDS: NS 1/2 1,000 ML IV 1,000 ML IV SCH (18:03)
[2023-05-21] MEDS: EXELON PO SCH (20:24)
[2023-05-21] MEDS: LASIX PO SCH (20:25)
[2023-05-21] MEDS: PLETAL PO SCH (20:29)
[2023-05-21] MEDS: PULMICORT NEB TX 0.5 MG NEB SCH (20:45)
[2023-05-21] MEDS ORDERED: PULMICORT NEB TX 0.5 MG NEB SCH (21:00)
[2023-05-22] MEDS: XOPENEX 1.25 MG/3 ML NEBULE NEB SCH ×4 (00:20→17:06)
[2023-05-22] MEDS ORDERED: NS 1/2 1,000 ML IV 1,000 ML IV ONE ×2 (02:18→10:41)
[2023-05-22] MEDS: NS 1/2 1,000 ML IV 1,000 ML IV SCH ×2 (02:28→04:57)
[2023-05-22] MEDS: FORTAZ or TAZICEF VIAL INJ 1 G in NS 100 ML IV 100 ML IV SCH ×3 (05:07→21:01)
[2023-05-22 06:44] LABS: BASOPHILS % (AUTO) 0.4 % (0.2-1.0); EOSINOPHILS # (AUTO) 0.2 x10^3/uL (0.0-0.2); EOSINOPHILS % (AUTO) 2.5 % (0.9-2.9); HEMATOCRIT 32.8 % (42.0-54.0); HEMOGLOBIN 10.8 g/dL (13.5-18.0); LYMPHOCYTES % (AUTO) 14.7 % (21.0-51.0); MEAN CORPUSCULAR HEMOGLOBIN 30.1 pg (27.0-34.0); MEAN CORPUSCULAR VOLUME 91.2 fL (80.0-100.0); MEAN PLATELET VOLUME 8.4 fL (7.4-11.0); MONOCYTES # (AUTO) 0.4 x10^3/uL (0.3-0.8); MONOCYTES % (AUTO) 6.7 % (0.0-13.0); NEUTROPHILS % (AUTO) 75.7 % (42.0-75.0); PLATELET COUNT 213 X10^3/uL (150.0-450.0); RED BLOOD COUNT 3.59 X10^6/uL (4.7-6.0); RED CELL DISTRIBUTION WIDTH 18.4 % (11.6-16.5); WHITE BLOOD COUNT 6.6 X10^3/uL (3.6-10.0)
[2023-05-22 07:04] LABS: ALANINE AMINOTRANSFERASE 9 Units/L (12-78); ALBUMIN 2.7 g/dL (3.4-5.0); ALKALINE PHOSPHATASE 171 Units/L (46-116); ASPARTATE AMINO TRANSFERASE 19 Units/L (15-37); BLOOD UREA NITROGEN 14 mg/dL (7-18); CALCIUM 7.4 mg/dL (8.5-10.1); CARBON DIOXIDE 31.1 mmol/L (21-32); CHLORIDE 103 mmol/L (98-107); COR CA(FOR HYPOALB) 8.4 mg/dL (8.5-10.1); GLUCOSE 95 mg/dL (65-99); MAGNESIUM 1.3 mg/dL (2.0-2.9); POTASSIUM 3.1 mmol/L (3.5-5.1); SODIUM 140 mmol/L (136-145); TOTAL PROTEIN 6.3 g/dL (6.4-8.2); eGFR NON BLACK RACES > 60 (>60)
[2023-05-22 07:44] LABS: ANISOCYTOSIS SLIGHT; PLATELET MORPHOLOGY COMMENT NORMAL (NORMAL); POIKILOCYTOSIS SLIGHT
[2023-05-22] MEDS ORDERED: ZESTRIL TAB 20 MG ONE (08:33)
[2023-05-22] MEDS: LASIX PO SCH ×2 (08:45→20:34)
[2023-05-22] MEDS: EXELON PO SCH ×2 (08:45→20:34)
[2023-05-22] MEDS: LIPITOR TAB 40 MG PO SCH (08:46)
[2023-05-22] MEDS: K-DUR TAB 20 MEQ PO SCH ×2 (08:46→20:34)
[2023-05-22] MEDS: ZESTRIL TAB 20 MG PO SCH (08:46)
[2023-05-22] MEDS: TOPROL XL PO SCH (08:46)
[2023-05-22] MEDS: LEVAQUIN PREMIX IV 750 MG 750 MG/150 ML BAG IV SCH (08:46)
[2023-05-22] MEDS: PLETAL PO SCH ×2 (08:46→20:34)
[2023-05-22] MEDS ORDERED: PATIENT'S HOME MEDICATION (Fluticasone-Umeclidin-Vilanter [Trelegy Ellipta] 100-62.5-25 mc IN SCH (09:00)
[2023-05-22] MEDS: ROBITUSSIN DM PO SCH ×4 (09:16→20:34)
[2023-05-22] MEDS: PULMICORT NEB TX 0.5 MG NEB SCH ×2 (09:42→20:06)
[2023-05-22] MEDS ORDERED: MAGNESIUM SULFATE 50% INJ VIAL ONE (10:41)
[2023-05-22] MEDS: NS 1/2 1,000 ML IV 1,000 ML with MAGNESIUM SULFATE 50% INJ VIAL 1 G IV SCH ×4 (10:55→21:01)
[2023-05-22] MEDS: LOVENOX INJ 40 MG SYR SC SCH (10:55)
--- NOTE | 2023-05-22 12:25 | DR.H&P ---
H&P History & Physical for Day of: H&P Date: 05/21/23 Chief Complaint Chief Complaint: Hypoxia status post fall. Allergies Allergies Allergy/AdvReac Type Severity Reaction Status Date / Time Penicillins Allergy Unknown Verified 10/11/22 15:12 History of Present Illness History of Present Illness: This is a pleasant 83-year-old white male well-known to me. He was brought to the [facility] emergency department after falling at his home. He was found to be hypoxic with O2 sat of 91% on room air. The home health care nurse was able to get him up and get him onto the hospital later on. The patient is a very poor historian as he has a history of dementia and he was found to be hypoxic in this resolved once he added supplemental O2 via nasal cannula 2 L. He was also found to be profoundly hypokalemic with a potassium of 2.9 and we saw that he had elevated troponins in the 200s. Because of this we elected to keep him and start him on IV Rocephin along with checking a set of sputum cultures. Chest x-ray showed that he had a possible right lower lobe pn eumonia versus possible mass. After I saw him I had IV Levaquin to his regimen and changing to Fortaz instead of Rocephin. We also check sputum cultures and we will follow-up with the results. I will plan on repeating a chest x-ray of the following morning. We will also plan on repeating a CT scan later on to see if there is any changes in the mass are seen in the right lower lung. Past Medical History Past Medical History: CHF, Dementia, Dyslipidemia, GERD, Gout and Hypertension Past Surgical History Surgical History: Ortho Surgery Additional Surgical History: Right wrist surgery unknown type. Family History Family Medical History: Cancer Social History Does patient currently use any type of tobacco product: No Have you used tobacco products in the last 12 months: No Type of Tobacco Use: None Does any household member use tobacco: No Alcohol Use: None Drug Use: None Medications Home Medications: Home Medications Medication Instructions Recorded Confirmed Type atorvastatin 40 mg tablet 40 mg PO QDAY 02/26/23 05/21/23 History cilostazol 100 mg tablet 100 mg PO BID 02/26/23 05/21/23 History furosemide 20 mg tablet 20 mg PO BID 02/26/23 05/21/23 History lisinopril 20 mg tablet 20 mg PO QDAY 02/26/23 05/21/23 History metoprolol succinate 50 mg 50 mg PO QDAY 02/26/23 05/21/23 History tablet,extended release 24 hr fluticasone fur. 100 mcg-umeclid 1 ea inhalation QDAY 05/21/23 05/21/23 History 62.5 mcg-vilant 25 mcg inhalat.powder (Trelegy Ellipta) rivastigmine tartrate 3 mg capsule 3 mg PO BID 05/21/23 05/21/23 History Labs 05/22/23 05:56 05/22/23 05:56 Labs: 05/21/23 16:25 Sputum - Expectorated Sputum Sputum Culture - Preliminary 05/21/23 16:25 Sputum - Expectorated Sputum - Final Laboratory WBC 6.6 X10^3/uL (3.6-10.0) 05/22/23 05:56 RBC 3.59 X10^6/uL (4.7-6.0) L 05/22/23 05:56 Hgb 10.8 g/dL (13.5-18.0) L 05/22/23 05:56 Hct 32.8 % (42.0-54.0) L 05/22/23 05:56 MCV 91.2 fL (80.0-100.0) 05/22/23 05:56 MCH 30.1 pg (27.0-34.0) 05/22/23 05:56 MCHC 33.0 g/dL (33.0-35.0) 05/22/23 05:56 RDW 18.4 % (11.6-16.5) H 05/22/23 05:56 Plt Count 213 X10^3/uL (150.0-450.0) 05/22/23 05:56 Plt Count Comment Adequate (ADEQUATE) 05/22/23 05:56 MPV 8.4 fL (7.4-11.0) 05/22/23 05:56 Neut % (Auto) 75.7 % (42.0-75.0) H 05/22/23 05:56 Lymph % (Auto) 14.7 % (21.0-51.0) L 05/22/23 05:56 Blount % (Auto) 6.7 % (0.0-13.0) 05/22/23 05:56 Eos % (Auto) 2.5 % (0.9-2.9) 05/22/23 05:56 Baso % (Auto) 0.4 % (0.2-1.0) 05/22/23 05:56 Neut # (Auto) 5.0 x10^3/uL (2.2-4.8) H 05/22/23 05:56 Lymph # (Auto) 1.0 X10^3/uL (1.3-2.9) L 05/22/23 05:56 Blount # (Auto) 0.4 x10^3/uL (0.3-0.8) 05/22/23 05:56 Eos # (Auto) 0.2 x10^3/uL (0.0-0.2) 05/22/23 05:56 Baso # (Auto) 0.0 X10^3/uL (0.0-0.1) 05/22/23 05:56 Absolute Nucleated RBC 0.1 /100WBC 05/22/23 05:56 Plt Morphology Comment Normal (NORMAL) 05/22/23 05:56 RBC Morphology Abnormal (NORMAL) 05/22/23 05:56 Poikilocytosis Slight A 05/22/23 05:56 Anisocytosis Slight A 05/22/23 05:56 Sodium 140 mmol/L (136-145) 05/22/23 05:56 Corrected Sodium TNP 05/22/23 05:56 Potassium 3.1 mmol/L (3.5-5.1) L 05/22/23 05:56 Chloride 103 mmol/L (98-107) 05/22/23 05:56 Carbon Dioxide 31.1 mmol/L (21-32) 05/22/23 05:56 BUN 14 mg/dL (7-18) 05/22/23 05:56 Creatinine 1.10 mg/dL (0.70-1.30) 05/22/23 05:56 Est GFR (MDRD) Af Amer > 60 (>60) 05/22/23 05:56 Est GFR (MDRD) Non-Af > 60 (>60) 05/22/23 05:56 Glucose 95 mg/dL (65-99) 05/22/23 05:56 POC Glucose (mg/dL) 105 mg/dL (65-99) H 05/21/23 19:58 Calcium 7.4 mg/dL (8.5-10.1) L 05/22/23 05:56 Corrected Calcium 8.4 mg/dL (8.5-10.1) L 05/22/23 05:56 Magnesium 1.3 mg/dL (2.0-2.9) L 05/22/23 05:56 Total Bilirubin 0.30 mg/dL (0.2-1.0) 05/22/23 05:56 AST 19 Units/L (15-37) 05/22/23 05:56 ALT 9 Units/L (12-78) L 05/22/23 05:56 Alkaline Phosphatase 171 Units/L (46-116) H 05/22/23 05:56 Troponin I High Sens 216.6 ng/L (4.0-60.0) H* 05/21/23 12:25 B-Natriuretic Peptide 160 pg/mL (0-79) H 05/21/23 10:27 Total Protein 6.3 g/dL (6.4-8.2) L 05/22/23 05:56 Albumin 2.7 g/dL (3.4-5.0) L 05/22/23 05:56 Globulin 3.6 g/dL (2.5-4.5) 05/22/23 05:56 Albumin/Globulin Ratio 0.8 Ratio (1.1-2.1) L 05/22/23 05:56 Review of Systems Constitutional: Weakness and Malaise Eyes: No Symptoms Reported ENT: No Symptoms Reported Respiratory: Cough, Shortness of Breath, SOB with Excertion, Sputum and Wheezing; denies Dry, Hemoptysis or Pleuritic Pain Cardiovascular: No Symptoms Reported Gastrointestinal: No Symptoms Reported Genitourinary: No Symptoms Reported Musculoskeletal: No Symptoms Reported Skin: No Symptoms Reported Neurological: Weakness and Incoordination; denies Numbness, Change in Speech, Confusion or Seizures Physical Exam Vital Signs: Vital Signs Temperature 98.8 F Pulse Rate [Left Brachial] 111 Pulse Rate 98 Pulse Rate 98 Respiratory Rate 20 Blood Pressure [Left Arm] 171/96 O2 Sat by Pulse Oximetry 98 O2 Sat by Pulse Oximetry 94 O2 Sat by Pulse Oximetry 99 Oriented: Normal Eyes: Normal Ear: Normal Nose: Normal Throat: Normal Respiratory: Diminished Throughout and Rhonchi Throughout Cardiovascular: Normal : Normal Auscultation: Bowel Sounds: Normal Palpation: Normal Tenderness: Normal Skin: Normal Musculoskeletal: Normal Psychiatric: Normal and Agitation Mood Description: Calm Affect: Normal Speech Pattern: Appropriate; negative Unclear, Slurred, Excessive, Aphasic or Artificially Ventilated Assessment/Plan (1) Mass of right lung: Status: Acute Plan: I plan on repeating a CT scan over the next several days to see if there is any change in the right lower lobe mass are seen. (2) Troponin level elevated: Status: Acute Plan: Check serial troponins and EKGs. (3) Acute hypokalemia: Status: Acute Plan: Start potassium replacement protocol. (4) Dementia: Status: Acute Plan: Continue rivastigmine 3 mg p.o. twice daily. (5) HTN (hypertension): Qualifiers: Hypertension type: unspecified Qualified Code(s): I10 - Essential (primary) hypertension Status: Acute Plan: Patient's blood pressure stable at this time. Adjust if necessary. We will continue him on his metoprolol 50 mg daily at this time. Review H&P Reviewed: Yes Patient was examined?: Yes
--- NOTE | 2023-05-22 12:28 | PCM.PROG ---
Progress Note Progress Note for Day of Date of Exam: 05/22/23 Subjective Subjective: I am informed that the patient got agitated last night and combative. He is also most over his necklaces but after speaking to his daughter she states that the nurse sitter has him. In the moment the patient is calm and his chest x-ray has not been done at this time. We will follow-up the results of it later on today's potassium is improved to 3.1 so we will continue the potassium replacement protocol. His hemoglobin is low at 10.8 this morning. His white blood cell count is normal at 6600. Past Medical Family Social History Allergies: Allergies Penicillins Allergy (Unknown, Verified 10/11/22 15:12) Reason: Drug allergy Review of Systems ROS: No change since H&P Vital Signs and I&O's Vital Signs: Vital Signs Temperature 98.8 F Pulse Rate [Left Brachial] 111 Pulse Rate 98 Pulse Rate 98 Respiratory Rate 20 Blood Pressure [Left Arm] 171/96 O2 Sat by Pulse Oximetry 98 O2 Sat by Pulse Oximetry 94 O2 Sat by Pulse Oximetry 99 Intake and Output: Intake & Output 05/20/23 05/21/23 05/22/23 05/23/23 11:59 11:59 11:59 11:59 Intake Total 1823 / 1823 Output Total 1900 / 1900 Balance - / - Physical Exam Oriented: Normal Eyes: Normal Ear: Normal Nose: Normal Throat: Normal Respiratory: Generalized, Diminished and Wheezes Cardiovascular: Normal : Normal Auscultation: Bowel Sounds: Normal Tenderness: Normal Skin: Normal Musculoskeletal: Normal Psychiatric: Normal and Agitation Mood Description: Calm Affect: Normal Speech Pattern: Appropriate; negative Unclear, Slurred, Excessive, Aphasic or Artificially Ventilated Laboratory and Diagnostics 05/22/23 05:56 05/22/23 05:56 Labs: 05/21/23 16:25 Sputum - Expectorated Sputum Sputum Culture - Preliminary 05/21/23 16:25 Sputum - Expectorated Sputum - Final Laboratory WBC 6.6 X10^3/uL (3.6-10.0) 05/22/23 05:56 RBC 3.59 X10^6/uL (4.7-6.0) L 05/22/23 05:56 Hgb 10.8 g/dL (13.5-18.0) L 05/22/23 05:56 Hct 32.8 % (42.0-54.0) L 05/22/23 05:56 MCV 91.2 fL (80.0-100.0) 05/22/23 05:56 MCH 30.1 pg (27.0-34.0) 05/22/23 05:56 MCHC 33.0 g/dL (33.0-35.0) 05/22/23 05:56 RDW 18.4 % (11.6-16.5) H 05/22/23 05:56 Plt Count 213 X10^3/uL (150.0-450.0) 05/22/23 05:56 Plt Count Comment Adequate (ADEQUATE) 05/22/23 05:56 MPV 8.4 fL (7.4-11.0) 05/22/23 05:56 Neut % (Auto) 75.7 % (42.0-75.0) H 05/22/23 05:56 Lymph % (Auto) 14.7 % (21.0-51.0) L 05/22/23 05:56 Carlton % (Auto) 6.7 % (0.0-13.0) 05/22/23 05:56 Eos % (Auto) 2.5 % (0.9-2.9) 05/22/23 05:56 Baso % (Auto) 0.4 % (0.2-1.0) 05/22/23 05:56 Neut # (Auto) 5.0 x10^3/uL (2.2-4.8) H 05/22/23 05:56 Lymph # (Auto) 1.0 X10^3/uL (1.3-2.9) L 05/22/23 05:56 Carlton # (Auto) 0.4 x10^3/uL (0.3-0.8) 05/22/23 05:56 Eos # (Auto) 0.2 x10^3/uL (0.0-0.2) 05/22/23 05:56 Baso # (Auto) 0.0 X10^3/uL (0.0-0.1) 05/22/23 05:56 Absolute Nucleated RBC 0.1 /100WBC 05/22/23 05:56 Plt Morphology Comment Normal (NORMAL) 05/22/23 05:56 RBC Morphology Abnormal (NORMAL) 05/22/23 05:56 Poikilocytosis Slight A 05/22/23 05:56 Anisocytosis Slight A 05/22/23 05:56 Sodium 140 mmol/L (136-145) 05/22/23 05:56 Corrected Sodium TNP 05/22/23 05:56 Potassium 3.1 mmol/L (3.5-5.1) L 05/22/23 05:56 Chloride 103 mmol/L (98-107) 05/22/23 05:56 Carbon Dioxide 31.1 mmol/L (21-32) 05/22/23 05:56 BUN 14 mg/dL (7-18) 05/22/23 05:56 Creatinine 1.10 mg/dL (0.70-1.30) 05/22/23 05:56 Est GFR (MDRD) Af Amer > 60 (>60) 05/22/23 05:56 Est GFR (MDRD) Non-Af > 60 (>60) 05/22/23 05:56 Glucose 95 mg/dL (65-99) 05/22/23 05:56 POC Glucose (mg/dL) 105 mg/dL (65-99) H 05/21/23 19:58 Calcium 7.4 mg/dL (8.5-10.1) L 05/22/23 05:56 Corrected Calcium 8.4 mg/dL (8.5-10.1) L 05/22/23 05:56 Magnesium 1.3 mg/dL (2.0-2.9) L 05/22/23 05:56 Total Bilirubin 0.30 mg/dL (0.2-1.0) 05/22/23 05:56 AST 19 Units/L (15-37) 05/22/23 05:56 ALT 9 Units/L (12-78) L 05/22/23 05:56 Alkaline Phosphatase 171 Units/L (46-116) H 05/22/23 05:56 Troponin I High Sens 216.6 ng/L (4.0-60.0) H* 05/21/23 12:25 B-Natriuretic Peptide 160 pg/mL (0-79) H 05/21/23 10:27 Total Protein 6.3 g/dL (6.4-8.2) L 05/22/23 05:56 Albumin 2.7 g/dL (3.4-5.0) L 05/22/23 05:56 Globulin 3.6 g/dL (2.5-4.5) 05/22/23 05:56 Albumin/Globulin Ratio 0.8 Ratio (1.1-2.1) L 05/22/23 05:56 Plan (1) Mass of right lung: Status: Acute Plan: I plan on repeating a CT scan over the next several days to see if there is any change in the right lower lobe mass are seen. Follow-up with this morning's chest x-ray when available. Continue nebs and IV Levaquin and Fortaz. Follow-up sputum cultures when available. (2) Troponin level elevated: Status: Acute Narrative Support Text: The second troponin trended down from the first since yesterday. Plan: Check serial troponins and EKGs. (3) Acute hypokalemia: Status: Acute Plan: Continue potassium replacement protocol. (4) Dementia: Status: Acute Plan: Continue rivastigmine 3 mg p.o. twice daily. (5) HTN (hypertension): Status: Acute Qualifiers: Hypertension type: unspecified Qualified Code(s): I10 - Essential (primary) hypertension Plan: Patient's blood pressure stable at this time. Adjust if necessary. We will continue him on his metoprolol 50 mg daily at this time. (6) Hypomagnesemia: Status: Acute Plan: Magnesium replacement via potassium/magnesium replacement protocol.
[2023-05-23] MEDS ORDERED: NS 1/2 1,000 ML IV 1,000 ML IV ONE (02:48)
[2023-05-23] MEDS ORDERED: MAGNESIUM SULFATE 50% INJ VIAL ONE (02:48)
[2023-05-23] MEDS: NS 1/2 1,000 ML IV 1,000 ML with MAGNESIUM SULFATE 50% INJ VIAL 1 G IV SCH ×4 (02:52→09:13)
[2023-05-23] MEDS: FORTAZ or TAZICEF VIAL INJ 1 G in NS 100 ML IV 100 ML IV SCH ×2 (05:09→14:26)
[2023-05-23] MEDS: XOPENEX 1.25 MG/3 ML NEBULE NEB SCH ×3 (05:54→13:11)
[2023-05-23 06:41] LABS: BASOPHILS % (AUTO) 0.5 % (0.2-1.0); EOSINOPHILS # (AUTO) 0.2 x10^3/uL (0.0-0.2); HEMATOCRIT 29.8 % (42.0-54.0); HEMOGLOBIN 9.9 g/dL (13.5-18.0); LYMPHOCYTES # (AUTO) 1.1 X10^3/uL (1.3-2.9); LYMPHOCYTES % (AUTO) 17.9 % (21.0-51.0); MEAN CORPUSCULAR HEMOGLOBIN 30.6 pg (27.0-34.0); MEAN CORPUSCULAR HGB CONC 33.3 g/dL (33.0-35.0); MEAN CORPUSCULAR VOLUME 92.1 fL (80.0-100.0); MEAN PLATELET VOLUME 8.8 fL (7.4-11.0); MONOCYTES # (AUTO) 0.5 x10^3/uL (0.3-0.8); MONOCYTES % (AUTO) 7.6 % (0.0-13.0); NEUTROPHILS # (AUTO) 4.3 x10^3/uL (2.2-4.8); PLATELET COUNT 192 X10^3/uL (150.0-450.0); RED BLOOD COUNT 3.24 X10^6/uL (4.7-6.0); RED CELL DISTRIBUTION WIDTH 18.5 % (11.6-16.5); WHITE BLOOD COUNT 6.1 X10^3/uL (3.6-10.0)
[2023-05-23 07:02] LABS: ALANINE AMINOTRANSFERASE 8 Units/L (12-78); ALBUMIN 2.3 g/dL (3.4-5.0); ALKALINE PHOSPHATASE 148 Units/L (46-116); ASPARTATE AMINO TRANSFERASE 19 Units/L (15-37); BLOOD UREA NITROGEN 18 mg/dL (7-18); CARBON DIOXIDE 29.4 mmol/L (21-32); CHLORIDE 104 mmol/L (98-107); COR CA(FOR HYPOALB) 8.4 mg/dL (8.5-10.1); CREATININE 1.12 mg/dL (0.70-1.30); GLUCOSE 82 mg/dL (65-99); MAGNESIUM 1.5 mg/dL (2.0-2.9); SODIUM 139 mmol/L (136-145); TOTAL PROTEIN 5.7 g/dL (6.4-8.2); eGFR NON BLACK RACES > 60 (>60)
[2023-05-23 07:22] LABS: ANISOCYTOSIS SLIGHT; PLATELET MORPHOLOGY COMMENT NORMAL (NORMAL); POIKILOCYTOSIS SLIGHT
[2023-05-23] MEDS ORDERED: ZESTRIL TAB 20 MG ONE (08:04)
[2023-05-23] MEDS: LEVAQUIN PREMIX IV 750 MG 750 MG/150 ML BAG IV SCH (08:39)
[2023-05-23] MEDS: LOVENOX INJ 40 MG SYR SC SCH (08:41)
[2023-05-23] MEDS: EXELON PO SCH (08:42)
[2023-05-23] MEDS: K-DUR TAB 20 MEQ PO SCH (08:42)
[2023-05-23] MEDS: LASIX PO SCH (08:42)
[2023-05-23] MEDS: LIPITOR TAB 40 MG PO SCH (08:42)
[2023-05-23] MEDS: PLETAL PO SCH (08:43)
[2023-05-23] MEDS: TOPROL XL PO SCH (08:43)
[2023-05-23] MEDS: ZESTRIL TAB 20 MG PO SCH (08:43)
[2023-05-23] MEDS ORDERED: NS 1/2 + KCL 20 MEQ/L 1,000 ML with MAGNESIUM SULFATE 50% INJ VIAL 1 G IV SCH ×2 (09:00)
[2023-05-23] MEDS: PULMICORT NEB TX 0.5 MG NEB SCH (09:04)
[2023-05-23] MEDS: ROBITUSSIN DM PO SCH ×2 (09:14→13:23)
[2023-05-23 09:21] LABS: RETICULOCYTE % 1.17 % (0.8-2.2)
[2023-05-23] MEDS ORDERED: PROTONIX INJ 40 MG VIAL IVP SCH (10:00)
[2023-05-23] MEDS ORDERED: VITAMIN B-12 INJ IM ONE (12:49)
--- NOTE | 2023-05-23 13:23 | RAD ---
EXAM:CHEST, 1 VIEWHISTORY:Rt lower lobe mass;COMPARISON:May 21, 2023FINDINGS:Mild cardiomegaly.Slight right lower lobe nonspecific airspace infiltrate improved.No pneumothorax or effusion.The bony thorax appears age appropriate.IMPRESSION:Mild cardiomegaly.Slight right lower lobe nonspecific airspace infiltrate improved.THIS IS AN ELECTRONICALLY VERIFIED FINAL [id number]/2023 1:20 PM - Electronically signed by Harsh Downing DO
[2023-05-23 14:23] VITALS: BP 117/60; PULSE 94; RESP 20; TEMP 98.1; O2SAT 93
== END 2023-05-23 16:20 | disposition home health service (06) ==
LOC: MED/SURG 10:05 → ER 10:05 → MED/SURG 13:48
PROVIDERS: ADMIT Family Medicine; ATTEND Family Medicine
DX: K21.9 Gastro-esophageal reflux disease without esophagitis; E87.6 Hypokalemia; R26.9 Unspecified abnormalities of gait and mobility; W18.39XA Other fall on same level, initial encounter; R91.8 Other nonspecific abnormal finding of lung field; K44.9 Diaphragmatic hernia without obstruction or gangrene; I10 Essential (primary) hypertension; B95.3 Streptococcus pneumoniae as the cause of diseases classified elsewhere; R77.8 Other specified abnormalities of plasma proteins; F03.90 Unspecified dementia, unspecified severity, without behavioral disturbance, psychotic disturbance, mood disturbance, and anxiety; E78.2 Mixed hyperlipidemia; R06.02 Shortness of breath; E83.42 Hypomagnesemia